=== PATIENT | male | born 1940 | race Caucasian/White ===

== ENCOUNTER 2019-10-24 08:42 | Emergency (ER) | payer MEDICARE, MEDICAID, SELFPAY ==
[2019-10-24] VITALS (11 sets, daily range): BP systolic 166–214; BP diastolic 90–117; PULSE 50–70; RESP 14–19; TEMP 36.8; O2SAT 95–98; BMI 33.3
--- NOTE | 2019-10-24 08:57 | ECG_ITS ---
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 Measurements Intervals [place] Rate: 58 P: 41 MN: 186 QRS: 2 QRSD: 98 T: 131 QT: 417 QTc: 411 Interpretive Statements SINUS BRADYCARDIA LEFT VENTRICULAR HYPERTROPHY AND ST-T CHANGE [VOLTAGE CRITERIA PLUS ST/T ABNORMALITY] POSSIBLE SEPTAL MYOCARDIAL INFARCTION , PROBABLY OLD [30 ms Q WAVE IN V1/V2] Compared to ECG 04/16/2017 10:20:02 Sinus rhythm no longer present ST (T wave) deviation still present Myocardial infarct finding still present Electronically Signed On 10-24-2019 18:58:33 CDT by Ambar Pinto M.D. [id number] f
[2019-10-24 09:19] LABS: Basophils # 0.1 10^3/uL (0.0-0.1); Basophils % 0.7 %; Eosinophils # 0.2 10^3/uL (0.0-0.8); Eosinophils % 3.1 %; Hematocrit 43.2 % (42.0-52.0); Hemoglobin 13.9 g/dL (11.7-16.6); Lymphocytes # 1.4 10^3/uL (0.8-4.8); Lymphocytes % 21.2 %; Mean Corpuscular HGB Conc 32.2 g/dL (30.0-36.0); Mean Corpuscular Hemoglobin 30.8 pg (28.0-34.0); Mean Corpuscular Volume 95.8 fL (80-94); Mean Platelet Volume 9.8 fL (7.4-10.4); Monocytes # 0.6 10^3/uL (0.2-0.9); Monocytes % 8.2 %; Neutrophils # 4.44 10^3/uL (1.8-7.7); Neutrophils % 66.1 %; Nucleated Red Blood Cells % 0 %; Platelet Count 193 10^3/cmm (130-400); Red Blood Count 4.51 10^6/uL (4.1-5.3); Red Cell Distribution Width 12.9 % (12.1-15.1); White Blood Count 6.7 10^3/uL (4.0-10.0)
--- NOTE | 2019-10-24 09:31 | PC.NURSE ---
Pt provided with blanket. Pt states he is unable to void at this time, urinal at bedside, call light in reach. Pt denies other needs at this time.
--- NOTE | 2019-10-24 09:35 | W.ED.ABDPA2 ---
HPI - Abdominal Pain General: Chief Complaint: Abdominal Pain Stated Complaint: ABD PAIN Time Seen by Provider: 10/24/19 08:46 History of Present Illness: HPI narrative: 79-year-old male presents complaining of vague abdominal discomfort and constipation. States he is gaining weight he is taken several different laxatives with no response including lactulose. He feels like he is gaining weight without really eating and he has this constipation but no real abdominal pain or chest pain. When asked specifically what is bothering him mostly focuses on the constipation. He usually does see a doctor in failure. He denies any fever sweats chills no GI or symptoms no respiratory symptoms MD elicited complaint: abdominal pain Pertinent past history: constipation Onset (ago): day(s) Severity: mild Quality: cramping Radiation: none Migration to: no migration Exacerbating factors: nothing Relieving factors: nothing Associated Symptoms: Reports bloating, constipation, GI cramping, nausea and poor appetite; Denies coffee ground emesis, diarrhea, dyspepsia, dysuria, fever(s), heartburn, hematochezia, hematuria, hematemesis, fecal incontinence, loose stools, melena and vomiting Treatments prior to arrival: other (Lactulose) Review of Systems Const: Denies: fever(s) ENMT: Denies: throat pain, ear or mastoid pain, nasal discharge or nasal congestion Card: Denies: chest pain, edema, dyspnea on exertion or orthopnea Resp: Denies: dyspnea, productive cough or non-productive cough GI: Reports: nausea, constipation, bloating and GI cramping; Denies: vomiting, hematemesis, coffee ground emesis, heartburn, diarrhea, fecal incontinence, hematochezia or melena : Denies: dysuria or hematuria Skin/Breast: Denies: rash or pruritus PFS ED PFSH: Medical History Chest pain HTN (hypertension) Left ventricular hypertrophy Family History Father Myocardial infarction Grandfather Myocardial infarction Grandmother Cancer Social History Smoking and tobacco status: never smoked Physical Exam Const: COMMON NORMALS: no acute distress GENERAL APPEARANCE: cooperative and comfortable ORIENTATION/CONSCIOUSNESS: Yes awake, Yes oriented to person, Yes oriented to place and Yes oriented to time HENMT: COMMON NORMALS: normocephalic, atraumatic and hearing grossly normal bilaterally HEAD & SCALP: normocephalic and atraumatic Eye: COMMON NORMALS: Equal, round and reactive pupils present, EOMs intact bilaterally, conjunctivae normal and no scleral icterus CONJUNCTIVA: Yes conjunctivae normal PUPIL: Yes Equal, round and reactive pupils present Neck/C-Spine: COMMON NORMALS: full ROM, no lymphadenopathy, supple and no JVD Lymph: LYMPHATIC: no lymphadenopathy noted and no lymphedema noted Resp: COMMON NORMALS: normal respiratory effort, No retractions, No use of accessory muscles and clear to auscultation bilaterally AUSCULTATION: clear to auscultation bilaterally Cardio: COMMON NORMALS: no JVD, regular rate, regular rhythm and No murmurs present (Cardio) RATE: regular rate RHYTHM: regular rhythm GI: COMMON NORMALS: Soft to palpation and No hepatosplenomegaly present AUSCULTATION: Yes normoactive bowel sounds PALPATION: Yes Soft to palpation, Yes Tenderness to palpation present (GI) (Diffuse nonspecific tenderness), No Guarding due to palpation present (GI) and Yes No hepatosplenomegaly present OTHER: Significant distortion of the abdominal wall with a extremely large abdominal hernia seems to involve the entire abdominal wall it extends to the right of the midline. Bowel sounds are still positive. Extremity: COMMON NORMALS: normal to inspection, capillary refill normal, no clubbing, cyanosis or edema, no calf tenderness and no pedal edema Neuro: SENSORIUM/ORIENTATION: Yes oriented to person, Yes oriented to place and Yes oriented to time Skin: COMMON NORMALS: no rashes or lesions noted GENERAL SKIN EXAM: no rashes or lesions noted Course Vital Signs: Vital signs: Vital Signs Temperature 98.3 F 10/24/19 08:43 Pulse Rate 58 L 10/24/19 13:59 Respiratory Rate 18 10/24/19 13:59 Blood Pressure 166/91 10/24/19 13:59 Pulse Oximetry 96 10/24/19 13:59 MDM - Abdominal Pain MDM Narrative: Medical decision making narrative: Matt with the patient his blood pressure markedly elevated today he should follow-up with his primary care doctor to adjust his blood pressure medicines. He did get good results from enema recommend that he started on MiraLAX 17 g daily may need to adjust that dose follow-up with his primary care doctor on that as well. Return if he has any problems. Lab Data: Labs: Lab Results 10/24/19 10/24/19 10/24/19 Range/Units 09:14 09:14 10:18 WBC 6.7 (4.0-10.0) 10^3/ uL RBC 4.51 (4.1-5.3) 10^6/u L Hgb 13.9 (11.7-16.6) g/dL Hct 43.2 (42.0-52.0) % MCV 95.8 H (80-94) fL MCH 30.8 (28.0-34.0) pg MCHC 32.2 (30.0-36.0) g/dL RDW 12.9 (12.1-15.1) % Plt Count 193 (130-400) 10^3/c mm MPV 9.8 (7.4-10.4) fL Neut % (Auto) 66.1 % Lymph % (Auto) 21.2 % Perry % (Auto) 8.2 % Eos % (Auto) 3.1 % Baso % (Auto) 0.7 % Neut # (Auto) 4.44 (1.8-7.7) 10^3/u L Lymph # (Auto) 1.4 (0.8-4.8) 10^3/u L Perry # (Auto) 0.6 (0.2-0.9) 10^3/u L Eos # (Auto) 0.2 (0.0-0.8) 10^3/u L Baso # (Auto) 0.1 (0.0-0.1) 10^3/u L Nucleated RBC % (a uto) 0 % Nucleated RBCs # 0.0 /100WBC Sodium 140 (136-145) mmol/L Potassium 3.7 (3.5-5.1) mmol/L Chloride 106 (98-107) mmol/L Carbon Dioxide 24 (22-29) mmol/L Anion Gap 13.7 (5-19) BUN 9 (8-23) mg/dL Creatinine 1.1 (0.7-1.2) mg/dL GFR Calculation Not Reportable Glucose 154 H (65-115) mg/dL Calculated Osmolal ity 289 (285-295) mOsm/k g Calcium 8.9 (8.5-10.5) mg/dL Total Bilirubin 0.3 (0.15-1.2) mg/dL AST 16 (0-40) U/L ALT 16 (0-41) U/L Alkaline Phosphata se 88 (40-130) IU/L Total Protein 6.4 L (6.6-8.7) g/dL Albumin 3.6 (3.5-5.2) g/dL Globulin 2.8 (1.3-4.6) g/dL Urine Color Yellow (Yellow) Urine Appearance Clear (CLEAR) Urine pH 5 (5-7) Ur Specific Gravit y 1.020 (1.005-1.030) Urine Protein Neg (Negative) Urine Glucose (UA) Norm (Normal) Urine Ketones Negative (Negative) Urine Blood Neg (Negative) Urine Nitrate Negative (Negative) Urine Bilirubin Neg (NEGATIVE) Urine Urobilinogen Norm (Negative) mg/dL Ur Leukocyte Anna ase Negative (Negative) Discharge Plan Discharge Patient Disposition: Home Clinical Impression: Constipation, Abdominal wall hernia, HTN (hypertension) Condition: Stable Prescriptions: New Miralax 17 gram/dose powder 17 gm PO DAILY Qty: 510 RF: 0 No Action lactulose 10 gram/15 mL solution 45 ml PO TID RF: 0 lisinopril 40 mg tablet 40 mg PO DAILY Qty: 90 RF: 0 Multiple Vitamins Tablet 1 tab PO DAILY PRN (Reason: unknown) RF: 0 aspirin 325 mg Tablet 325 mg PO PRN RF: 0 Enema 19-7 gram/118 mL Enema 118 ml [place] DAILY PRN (Reason: Constipation) RF: 0 amlodipine 10 mg tablet 10 mg PO BEDTIME RF: 0 Referrals: Anel Box MD [Primary Care Provider] - Discharge Activity: Resume usual activity Activity Restrictions/Additional Instructions: Discharge home start MiraLAX 17 g daily follow-up with primary care doctor for further adjustments to medications. He also need to follow-up with your primary care doctor to adjust blood pressure medicines. 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
[2019-10-24 09:36] LABS: Alanine Aminotransferase 16 U/L (0-41); Albumin Level 3.6 g/dL (3.5-5.2); Alkaline Phosphatase 88 IU/L (40-130); Anion Gap 13.7 (5-19); Aspartate Amino Transferase 16 U/L (0-40); Blood Urea Nitrogen 9 mg/dL (8-23); Calcium 8.9 mg/dL (8.5-10.5); Carbon Dioxide 24 mmol/L (22-29); Chloride 106 mmol/L (98-107); Globulin 2.8 g/dL (1.3-4.6); Glucose 154 mg/dL (65-115); Osmolality Calculated 289 mOsm/kg (285-295); Potassium 3.7 mmol/L (3.5-5.1); Sodium 140 mmol/L (136-145); Total Bilirubin 0.3 mg/dL (0.15-1.2); Total Protein 6.4 g/dL (6.6-8.7)
--- NOTE | 2019-10-24 10:08 | PC.NURSE ---
Pt states he is still unable to void at this time. Pt denies other needs, call light and urinal in reach.
[2019-10-24 10:35] LABS: Add Urine Microscopic? NO
[2019-10-24 10:43] LABS: Bilirubin Urine Neg (NEGATIVE); Blood Urine Neg (Negative); Glucose Urine UA Norm (Normal); Ketones Urine Negative (Negative); Leukocyte Esterase Urine Negative (Negative); Nitrate Urine Negative (Negative); Protein Urine Neg (Negative); Urine Appearance Clear (CLEAR); Urine Color Yellow (Yellow); Urobilinogen Urine Norm (Negative); pH Urine 5 (5-7)
--- NOTE | 2019-10-24 10:46 | CT_ITS ---
WS: [id number] CT ABDOMEN AND PELVIS WITH CONTRAST HISTORY: Abdominal pain. TECHNIQUE: Imaging performed of the abdomen and pelvis with IV contrast. Single phase imaging of the abdomen. Coronal and sagittal reformats are submitted. All CT scans at [facility] use at least one of these dose optimization techniques: automated exposure control; mA and/or kV adjustment per patient size (includes targeted exams where dose is matched to clinical indication); or iterativ e reconstruction. IV CONTRAST: Omnipaque 300; 95 mL IV. Oral contrast: No DLP: 1589.32 mGy.cm COMPARISON: 06/14/2017 Lower thorax: Lung bases are clear. Heart is normal size. Small hernia. Liver/biliary system: Normal size liver with mild hepatic steatosis. No mass. Gallbladder: Small stones within the gallbladder lumen with no evidence for acute inflammation. No bi le duct dilatation. Pancreas: Normal. Spleen: Normal. Adrenal glands: Normal. Right kidney: Normal. Left kidney: Normal. Aorta: Mild atherosclerosis with no aneurysm. Lymphadenopathy: None. Free fluid: None. GI tract: There is marked dilatation of the colon with air. Very similar to prior examinations. No mu cosal thickening or inflammation. The appendix is normal. No small bowel dilatation. No obstruction a t this time. There is a large ventral hernia with loops of colon and small bowel projecting through t he hernia. Abdominal wall: There is a large ventral abdominal wall hernia. Projection of small bowel and colon t hrough the hernia. Similar to the prior study. Hernia projects to the RIGHT and inferior. Pelvis: Normal. Bones: Multilevel degenerative changes throughout the lumbar spine. Endplate osteophytes. No fracture s or bone destruction. CT/CT abdomen pelvis w con* [id number] IMPRESSION: 1. Large ventral abdominal wall hernia contains colon and small bowel. There i s no obstruction. 2. Significant dilatation of the colon with fecal material and air but no obst ruction. Similar to prior studies and may be related to chronic constipation. 3. Normal appendix. 4. Cholelithiasis without evidence for acute cholecystitis.
--- NOTE | 2019-10-24 10:59 | PC.NURSE ---
Pt to CT
[2019-10-24] MEDS: iohexol 300 mg/mL 100 mL Btl IV (11:11)
--- NOTE | 2019-10-24 11:21 | PC.NURSE ---
Pt returned from CT. Pt states his pain is overall better, but comes and goes in severity. Pt denies needs at this time. Call light in reach.
--- NOTE | 2019-10-24 12:12 | PC.NURSE ---
Milk of Molasses enema instilled via protocol. Pt tolerated well. Pt instructed to hold enema as long as possible, preferably 5-10 min if able. Pt with BSC at bedside and call light in reach.
--- NOTE | 2019-10-24 12:19 | PC.NURSE ---
Pt up to BSC
[2019-10-24] MEDS: hyDRALAzine 20 mg/mL INJ 1 mL IVP (12:54)
[2019-10-24] MEDS: cloNIDine 0.1 mg Tablet PO (13:01)
== END 2019-10-24 14:01 | disposition home or self-care (01) ==
PROVIDERS: Emergency Provider Family Medicine; PCP Family Medicine
DX: K59.00 Constipation, unspecified (principal); K43.9 Ventral hernia without obstruction or gangrene; I10 Essential (primary) hypertension; Z79.82 Long term (current) use of aspirin
CPT/HCPCS: 12345; 36415; 45915; 74177; 80053; 81003; 85025; 93005; 96374; 96375; 99284; J0360; Q9967

== ENCOUNTER → 2020-01-13 08:40 | Outpatient (BNVA) | payer MEDICARE, MEDICAID, SELFPAY | PROVIDERS: PCP Family Medicine; Visit Provider Family Medicine | DX: I10 Essential (primary) hypertension (principal); M06.9 Rheumatoid arthritis, unspecified; Z79.899 Other long term (current) drug therapy | CPT/HCPCS: 80053; 80061; 85025 ==

== ENCOUNTER → 2020-01-18 16:28 | Outpatient (BNVA) | payer MEDICARE, MEDICAID, SELFPAY | PROVIDERS: PCP Family Medicine; Visit Provider Family Medicine | DX: R73.9 Hyperglycemia, unspecified (principal); I10 Essential (primary) hypertension; L98.9 Disorder of the skin and subcutaneous tissue, unspecified | CPT/HCPCS: 36416; 80053; 80061; 82962; 83036 ==

== ENCOUNTER → 2020-01-23 15:17 | Outpatient (BNVA) | payer MEDICARE, MEDICAID, SELFPAY | PROVIDERS: PCP Family Medicine; Visit Provider Dermatology | DX: D48.9 Neoplasm of uncertain behavior, unspecified (principal) | CPT/HCPCS: 88304 ==

== ENCOUNTER 2021-03-25 20:16 | Emergency (ER) | payer MEDICARE, MEDICAID, SELFPAY ==
[2021-03-25 20:18] VITALS: BP 217/117; PULSE 81; RESP 18; TEMP 37.3; O2SAT 99; BMI 33.0
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
[2021-03-25] MEDS: tetanus-dipt-pertussis 0.5 mL SDV IM (20:40)
[2021-03-25] MEDS: HYDROcodone-acetaminophen 5-325 mg Tablet 1 TAB PO (20:51)
[2021-03-25 21:01] VITALS: BP 218/98
== END 2021-03-25 21:04 | disposition home or self-care (01) ==
PROVIDERS: Emergency Provider Emergency Medicine; PCP Family Medicine
DX: S80.212A Abrasion, left knee, initial encounter (principal); S90.512A Abrasion, left ankle, initial encounter; V03.00XA Pedestrian on foot injured in collision with car, pick-up truck or van in nontraffic accident, initial encounter; Z79.82 Long term (current) use of aspirin; I10 Essential (primary) hypertension; H35.30 Unspecified macular degeneration; Z23 Encounter for immunization
CPT/HCPCS: 73590; 73610; 90471; 90715; 99283

== ENCOUNTER 2021-11-10 12:44 | Inpatient (IN) | payer MEDICARE, MEDICAID, SELFPAY ==
[2021-11-10] VITALS (8 sets, daily range): BP systolic 127–185; BP diastolic 67–100; PULSE 69–94; RESP 16–18; TEMP 36.9–38.2; O2SAT 91–95; BMI 32.1
--- NOTE | 2021-11-10 12:47 | W.ED.CHESTPA ---
HPI - Chest Pain General: Chief Complaint: Chest Pain Stated Complaint: CHEST PAIN Time Seen by Provider: 11/10/21 12:47 History of Present Illness: Mr. Poe is an 81-year-old gentleman with history of hypertension, LVH who presents to the emergency department for chest pain. He reports onset of symptoms at approximately 10 AM this morning while at rest. Describes substernal chest pressure with radiation to the left arm and mild associated nausea. Intensity symptoms at worst was moderate to severe. Improved with nitroglycerin. Denies frequent history of similar or infectious symptoms. No other specific changes in health, exacerbating, or alleviating factors identified. Onset (ago): hour(s) Onset: during rest Pain location: substernal Severity: moderate Quality: heaviness and dull Associated symptoms: Reports dyspnea and nausea Review of Systems General: Reports: 10 or more systems reviewed and unremarkable except in HPI and below Resp: Reports: dyspnea GI: Reports: nausea PFSH ED PFSH: Medical History Chest pain History of nonmelanoma skin cancer HTN (hypertension) Left ventricular hypertrophy Macular degeneration Rheumatoid arthritis Surgical History S/P colon resection Family History Father Myocardial infarction Grandfather Myocardial infarction Grandmother Cancer Social History Smoking and tobacco status: never smoked Physical Exam Const: COMMON NORMALS: alert GENERAL APPEARANCE: cooperative and well developed HENMT: COMMON NORMALS: normocephalic and atraumatic HEAD & SCALP: normocephalic and atraumatic Eye: COMMON NORMALS: conjunctivae normal CONJUNCTIVA: Yes conjunctivae normal SCLERA: sclerae normal Neck/C-Spine: COMMON NORMALS: supple GENERAL: Yes trachea midline Resp: COMMON NORMALS: normal respiratory effort and clear to auscultation bilaterally EFFORT & INSPECTION: Yes able to speak in complete sentences AUSCULTATION: clear to auscultation bilaterally Cardio: COMMON NORMALS: regular rate and regular rhythm RATE: regular rate RHYTHM: regular rhythm GI: COMMON NORMALS: Soft to palpation PALPATION: Yes Soft to palpation and No Tenderness to palpation present (GI) PERCUSSION: normal to percussion Extremity: GENERAL: Yes normal exam except as noted and No edema Neuro: COMMON NORMALS: moves all extremities SENSORIUM/ORIENTATION: Yes alert and No Orientation impaired Psych: COMMON NORMALS: mental status grossly normal and Normal thought process present THOUGHT PROCESS: Normal thought process present Course ED course: - Patient was seen and evaluated by me at bedside - Patient placed on cardiac monitors, IV access obtained - Initial evaluation notable for exam as above - Labs and xrays personally interpreted by me. EKG notable for nonspecific ST segment abnormalities, sinus rhythm, no STEMI. -Patient received prior to arrival appropriate dose aspirin. Analgesia given. - Labs notable for no leukocytosis, normal hemoglobin. Metabolic panel without acute derangement to explain symptoms. Intermediate range 2-hour troponin. - Imaging notable for no lobar consolidation or pneumothorax - Upon serial reexamination after treatment the patient was improved with analgesia - Based on patient history, evaluation, and testing as interpreted the most likely cause of the patient's condition is chest pain in a patient who is not low risk by heart score - The results of ED evaluation were discussed with the patient including possible disposition options. Patient is reasonable for admission for further cardiac testing and prefers admission over outpatient follow-up. I discussed plan for admission due to requirement for level of care not available if discharged to prevent significant worsening/deterioration. - Admitting service was contacted and Dr Kong with the hospitalist service agreed to admit the patient - Patient was admitted without further deterioration or significant events. Note: Click bubbles or prepopulated mak in note writing are used for assistance with data collection and billing and are inherently more limited than narrative and other text portions of this note. Please use narrative for additional clinical history and defer to narrative/free test for any case of contradictory information. If information appears in only free text or click bubble it should be considered present or absent as reported. Please contact note magazine writer for clarifications of clinical information or contradictory information. MDM is a brief summary, contradictory or erroneous seeming information should be clarified and full note should be reviewed. Vital Signs: Vital signs: Vital Signs Temperature 98.1 F 11/14/21 15:30 Pulse Rate 61 11/14/21 15:30 Respiratory Rate 15 11/14/21 15:30 Blood Pressure 135/69 11/14/21 15:30 Pulse Oximetry 97 11/14/21 15:30 Oxygen Delivery Nm thod 11/14/21 15:30 MDM - Chest Pain Medical Decision Making 81-year-old lady presenting with chest pain. Intermediate range 2-hour troponin, nonspecific ST segment abnormalities. Patient is not low risk by heart score and admitted for further cardiac testing. Medical Records I reviewed the patient's medical records. Lab Data I reviewed the patient's lab results. : 11/13/21 05:16 11/13/21 05:16 Radiology Impressions Chest X-Ray 11/10/21 13:12 IMPRESSION: No acute finding. Abdomen/Pelvis CT 11/11/21 18:10 IMPRESSION: 1. Cholelithiasis with hydrops of the gallbladder and question of mild gallbladder wall thickening. Consider further evaluation with gallbladder ultrasound. 2. Mild dilatation of the common bile duct which is a new finding. 3. Mild fatty liver 4. No change in large ventral hernia. Gallbladder Ultrasound 11/12/21 09:32 IMPRESSION: 1. Hydropic gallbladder. No visualized cholelithiasis. Calculus in the gallbladder seen on CT not well seen on the ultrasound. No gallbladder wall thickening or pericholecystic fluid. 2. Dilated common bile duct measuring 9 mm is new since October 24, 2019. Recommend further evaluation with MRCP to evaluate for choledocholithiasis. If MRI not tolerated, then recommend ERCP. 3. Hepatomegaly with diffuse fatty infiltration. 4. No hydronephrosis in RIGHT kidney. Cholangiopancreatography MRI 11/12/21 12:23 IMPRESSION: 1. Technically difficult evaluation due to body habitus. 2. Common bile duct is normal at 7 mm. No filling defect. 3. No intrahepatic duct dilatation. 4. Cholelithiasis with very minimal gallbladder hydrops. No associated wall thickening or edema. Laboratory Results WBC 7.7 10^3/uL (4.0-10.0) 11/10/21 13:10 RBC 4.32 10^6/uL (4.1-5.3) 11/10/21 13:10 Hgb 13.7 g/dL (11.7-16.6) 11/10/21 13:10 Hct 40.1 % (42.0-52.0) L 11/10/21 13:10 MCV 92.8 fl (80-94) 11/10/21 13:10 MCH 31.7 pg (28.0-34.0) 11/10/21 13:10 MCHC 34.2 g/dL (30.0-36.0) 11/10/21 13:10 RDW 12.5 % (12.1-15.1) 11/10/21 13:10 Plt Count 170 10^3/cmm (130-400) 11/10/21 13:10 MPV 10.3 fL (7.4-10.4) 11/10/21 13:10 Neut % (Auto) 85.8 % 11/10/21 13:10 Lymph % (Auto) 3.7 % 11/10/21 13:10 Sebastian % (Auto) 8.5 % 11/10/21 13:10 Eos % (Auto) 1.2 % 11/10/21 13:10 Baso % (Auto) 0.3 % 11/10/21 13:10 Neut # (Auto) 6.58 10^3/uL (1.8-7.7) 11/10/21 13:10 Lymph # (Auto) 0.3 10^3/uL (0.8-4.8) L 11/10/21 13:10 Sebastian # (Auto) 0.7 10^3/uL (0.2-0.9) 11/10/21 13:10 Eos # (Auto) 0.1 10^3/uL (0.0-0.8) 11/10/21 13:10 Baso # (Auto) 0.0 10^3/uL (0.0-0.1) 11/10/21 13:10 Nucleated RBC % (auto) 0 % 11/10/21 13:10 Nucleated RBCs # 0.0 /100WBC 11/10/21 13:10 Sodium 135 mmol/L (136-145) L 11/10/21 13:10 Potassium 3.7 mmol/L (3.5-5.1) 11/10/21 13:10 Chloride 102 mmol/L (98-107) 11/10/21 13:10 Carbon Dioxide 25 mmol/L (22-29) 11/10/21 13:10 Anion Gap 11.7 (5-19) 11/10/21 13:10 BUN 9 mg/dL (8-23) 11/10/21 13:10 Creatinine 0.8 mg/dL (0.7-1.2) 11/10/21 13:10 GFR Calculation Not Reportable 11/10/21 13:10 Glucose 245 mg/dL (65-115) H 11/10/21 13:10 Calculated Osmolality 287 mOsm/kg (285-295) 11/10/21 13:10 Calcium 8.8 mg/dL (8.5-10.5) 11/10/21 13:10 Total Bilirubin 0.6 mg/dL (0.15-1.2) 11/10/21 13:10 AST 18 U/L (0-40) 11/10/21 13:10 ALT 22 U/L (0-41) 11/10/21 13:10 Alkaline Phosphatase 118 U/L (40-130) 11/10/21 13:10 Troponin T Baseline 18 ng/L (0-15) H 11/10/21 13:10 Troponin T 120 Minute 22.05 ng/L (0-15) H 11/10/21 15:07 Delta Troponin T 4.05 ABS# (0-10) 11/10/21 15:07 NT-Pro-B Natriuret Pep 623 pg/mL (0-450) H 11/10/21 13:10 Total Protein 6.2 g/dL (6.6-8.7) L 11/10/21 13:10 Albumin 3.7 g/dL (3.5-5.2) 11/10/21 13:10 Globulin 2.5 g/dL (1.3-4.6) 11/10/21 13:10 Lipase 24 U/L (13-60) 11/10/21 13:10 Discharge Plan Discharge Patient Disposition: Admitted As Inpatient Admit Provider: Kevin Kong Clinical Impression: Chest pain Condition: Stable Discharge Diet: Cardiac and Diabetic Discharge Activity: Increase activity as tolerated Coding Level of Care Code ED 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
--- NOTE | 2021-11-10 12:59 | ECG_ITS ---
[facility] Test Date: 2021-11-10 Pat Name: Jens Poe Department: Room: Gender: Male Radiology Orderly: : 1940 Requested By: Cj Mulligan Order Number: [id number] Dave MD: Paula Flannery M.D. Measurements Intervals [place] Rate: 94 P: 27 CA: 181 QRS: -11 QRSD: 97 T: 130 QT: 339 QTc: 425 Interpretive Statements SINUS RHYTHM LEFT VENTRICULAR HYPERTROPHY AND ST-T CHANGE Compared to ECG 10/24/2019 09:08:09 Sinus bradycardia no longer present Myocardial infarct finding no longer present ST (T wave) deviation still present Electronically Signed On 11-11-2021 8:30:43 CDT by Paula Flannery M.D. [email or web address] memorial hospitaliCatapultpeoples hospital.[facility]/store/NU/[id number] f
--- NOTE | 2021-11-10 13:12 | XRR_ITS ---
PROCEDURE INFORMATION: Exam: XR Chest Exam date and time: 11/10/2021 1:18 PM Age: 81 years old Clinical indication: High blood pressure; chest pain. TECHNIQUE: Imaging protocol: Radiologic exam of the chest. Views: 1 view. COMPARISON: CR Chest 1 [place] [id number] 01/05/2017 6:13 AM FINDINGS: Lungs: No pneumonia or pulmonary edema. Pleural spaces: No pleural effusion or pneumothorax. Heart/Mediastinum: The cardiac silhouette is not enlarged. The mediastinal contours are normal. Bones/joints: No acute osseous abnormality. XR/XR chest 1V portable [id number] IMPRESSION: No acute finding.
[2021-11-10 13:24] LABS: Basophils % 0.3 %; Eosinophils # 0.1 10^3/uL (0.0-0.8); Eosinophils % 1.2 %; Hematocrit 40.1 % (42.0-52.0); Hemoglobin 13.7 g/dL (11.7-16.6); Lymphocytes # 0.3 10^3/uL (0.8-4.8); Lymphocytes % 3.7 %; Mean Corpuscular HGB Conc 34.2 g/dL (30.0-36.0); Mean Corpuscular Hemoglobin 31.7 pg (28.0-34.0); Mean Corpuscular Volume 92.8 fl (80-94); Mean Platelet Volume 10.3 fL (7.4-10.4); Monocytes # 0.7 10^3/uL (0.2-0.9); Monocytes % 8.5 %; Neutrophils # 6.58 10^3/uL (1.8-7.7); Neutrophils % 85.8 %; Nucleated Red Blood Cells % 0 %; Platelet Count 170 10^3/cmm (130-400); Red Blood Count 4.32 10^6/uL (4.1-5.3); Red Cell Distribution Width 12.5 % (12.1-15.1); White Blood Count 7.7 10^3/uL (4.0-10.0)
[2021-11-10 13:49] LABS: Troponin(5th) Baseline 18 ng/L (0-15)
[2021-11-10 13:51] LABS: Alanine Aminotransferase 22 U/L (0-41); Albumin Level 3.7 g/dL (3.5-5.2); Alkaline Phosphatase 118 U/L (40-130); Anion Gap 11.7 (5-19); Aspartate Amino Transferase 18 U/L (0-40); Blood Urea Nitrogen 9 mg/dL (8-23); Calcium 8.8 mg/dL (8.5-10.5); Carbon Dioxide 25 mmol/L (22-29); Chloride 102 mmol/L (98-107); Globulin 2.5 g/dL (1.3-4.6); Glucose 245 mg/dL (65-115); Lipase 24 U/L (13-60); NT Pro B Type Natriuretic Pept 623 pg/mL (0-450); Osmolality Calculated 287 mOsm/kg (285-295); Potassium 3.7 mmol/L (3.5-5.1); Sodium 135 mmol/L (136-145); Total Bilirubin 0.6 mg/dL (0.15-1.2); Total Protein 6.2 g/dL (6.6-8.7)
--- NOTE | 2021-11-10 15:20 | ECG_ITS ---
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 Measurements Intervals [place] Rate: 100 P: 28 LA: 183 QRS: -5 QRSD: 93 T: 124 QT: 319 QTc: 413 Interpretive Statements SINUS TACHYCARDIA LEFT VENTRICULAR HYPERTROPHY AND ST-T CHANGE [VOLTAGE CRITERIA PLUS ST/T ABNORMALITY] Compared to ECG 11/10/2021 12:59:57 Sinus rhythm no longer present ST (T wave) deviation still present Electronically Signed On 11-11-2021 8:34:33 CDT by Paula Flannery M.D. [email or web address]/store/[id number]
[2021-11-10] MEDS: morphine 4 mg/mL SDV 1 mL IVP (15:29)
[2021-11-10 15:46] LABS: Troponin 5 2HR 22.05 ng/L (0-15)
[2021-11-10 15:49] LABS: Troponin 5 2HR Delta 4.05 ABS# (0-10)
--- NOTE | 2021-11-10 18:17 | ECG_ITS ---
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 Measurements Intervals [place] Rate: 95 P: 48 TN: 189 QRS: 3 QRSD: 107 T: 131 QT: 356 QTc: 448 Interpretive Statements SINUS RHYTHM LEFT VENTRICULAR HYPERTROPHY AND ST-T CHANGE [VOLTAGE CRITERIA PLUS ST/T ABNORMALITY] Compared to ECG 11/10/2021 15:20:22 Sinus tachycardia no longer present ST (T wave) deviation still present Electronically Signed On 11-11-2021 8:33:12 CDT by Paula Flannery M.D. [id number]
--- NOTE | 2021-11-10 18:26 | PM.HP ---
Providers/Chief Complaint Admitting Physician: Kevin oKng MD Primary Care Provider: Anel Box MD Chief Complaint: CHEST PAIN History of Present Illness Jens Poe is a 81 year old male with past medical history of hypertension abdominal hernia, was brought in from home with chief complaint of substernal pressure-like chest pain around 6-7 in intensity at rest radiating to left arm which started this morning at around 10 AM, chest pain was relieved with sublingual nitro. When I examined the patient he was complaining of back pain radiating to his belly, as well as dizziness, he also had a temperature spike on the floor and has facial redness. Denied any abdominal pain, nausea vomiting, difficulty passing urine, cough. Upon arrival in the ER he was worked up for above-mentioned complaint. Pertinent imaging studies includes: X-ray chest: No infiltrates no effusion no pneumothorax EKG: Sinus tach, with T wave inversion in 1 aVL, ST depression in lead II, V4 to V6, unchanged from prior EKG in the past. Pertinent labs: WBC 7.7, H&H 13/ 40 , PLT : 170 , serum sodium 135 serum potassium 3.7, BUN serum creatinine 9 and 0.8 BUN serum creatinineBUN/SCR : 9/0.8 , Troponin trend: proBNP:623 Review of Systems General: Reports: 10 or more systems reviewed and unremarkable except in HPI and below Const: Denies: fever(s), chills, body aches, change in appetite or diaphoresis Card: Denies: palpitations, edema, swelling of feet/ankles, dyspnea on exertion, orthopnea or leg pain with exertion Resp: Denies: dyspnea, productive cough, wheezing or pain on inspiration GI: Denies: abdominal pain, nausea, vomiting, diarrhea or constipation : Denies: flank pain or difficulty urinating Musc: Reports: back pain; Denies: extremity pain or extremity swelling Neuro: Denies: headache(s), difficulty walking or confusion Medications/Allergies Home Medications Medication Instructions Recorded Confirmed Last Taken Type blood sugar diagnostic (Blood #100 ea 01/24/20 11/10/21 Unknown Rx Glucose Test) blood-glucose meter #1 ea 01/24/20 11/10/21 Unknown Rx aspirin 325 mg tablet 325 mg PO DAILY 08/29/20 11/10/21 11/10/21 History lisinopril 40 mg tablet 40 mg PO DAILY #90 tabs 03/28/21 11/10/21 11/10/21 Rx sennosides 15 mg tablet (Laxative 15 mg PO DAILY 10/23/21 11/10/21 11/10/21 History (sennosides)) Allergies Allergy/AdvReac Type Severity Reaction Status Date / Time Sulfa (Sulfonamide Allergy Unknown Unknown Verified 10/23/21 14:42 Antibiotics) PFSH Acute PFSH: Medical History Chest pain History of nonmelanoma skin cancer HTN (hypertension) Left ventricular hypertrophy Macular degeneration Rheumatoid arthritis Surgical History S/P colon resection Family History Father Myocardial infarction Grandfather Myocardial infarction Grandmother Cancer Social History Smoking and tobacco status: never smoked Vitals/I&O/Wt Last Vital Signs Temp 98.5 F 11/10/21 13:04 Pulse 94 11/10/21 17:04 Resp 18 11/10/21 18:00 BP 185/100 11/10/21 17:04 Pulse Ox 95 11/10/21 17:04 O2 Del Method 11/10/21 17:22 Weight last 48 hrs Weight 104.326 kg Weight 104.326 kg Physical Exam Const: COMMON NORMALS: patient oriented x3 Chest: COMMONS NORMALS: normal inspection of the chest and normal palpation of entire chest wall CHEST: Yes Symmetrical chest wall rise Resp: COMMON NORMALS: normal respiratory effort, No retractions, No use of accessory muscles and clear to auscultation bilaterally EFFORT & INSPECTION: Yes symmetric chest movement AUSCULTATION: clear to auscultation bilaterally Cardio: COMMON NORMALS: regular rate, regular rhythm, S1 normal heart sound present, S2 normal heart sound present, No gallops present (Cardio), No murmurs present (Cardio), No rub (Cardio) and Peripheral pulses 2+ throughout RATE: regular rate RHYTHM: regular rhythm HEART SOUNDS: S1 normal heart sound present and S2 normal heart sound present PERIPHERAL PULSES: Peripheral pulses 2+ throughout GI: COMMON NORMALS: Soft to palpation, non-tender, No hepatosplenomegaly present and no masses AUSCULTATION: Yes normoactive bowel sounds PALPATION: Yes Soft to palpation and Yes No hepatosplenomegaly present RECTAL EXAM: Yes deferred OTHER: Distended belly, abdominal hernia present Extremity: COMMON NORMALS: no clubbing, cyanosis or edema and no pedal edema Neuro: COMMON NORMALS: patient oriented x3 Data : 11/11/21 04:20 11/11/21 04:20 A&P Assessment and plan (1) Chest pain: Status: Acute (2) HTN (hypertension): Status: Acute Qualifiers: Hypertension type: essential hypertension Qualified Code(s): I10 - Essential (primary) hypertension (3) Fever: Status: Acute (4) Abdominal hernia: Status: Acute Plan 81 year old male with past medical history of hypertension abdominal hernia, was brought in from home with chief complaint of substernal pressure-like chest pain around 6-7 in intensity at rest radiating to left arm which started this morning at around 10 AM, chest pain was relieved with sublingual nitro. When I examined the patient he was complaining of back pain radiating to his belly, as well as dizziness, he also had a temperature of Along with facial redness. Assessment: Chest pain Hypertension Fever Plan: Follow-up 2D echo Follow blood culture Urine culture urine analysis Lactic acid Procalcitonin Continue aspirin and statin Continue lisinopril Continue Nitropaste Sublingual nitro as needed Empirically on ceftriaxone Possible stress test. DVT prophylaxis: On Lovenox CODE STATUS: Full code Attestations Medical Necessity Statement*: Patient is in hospital for chest pain management, fever. Anticipated length of stay greater than 2 midnights. Time Spent in Patient Care: Greater than 35 minutes (>than 50% of time spent in counselling and/or direct pt care on unit). 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
[2021-11-10] MEDS: enoxaparin 40 mg/0.4 mL Syringe SUBCUT (18:27)
[2021-11-10] MEDS: cefTRIAXone 1,000 MG in sodium chloride 0.9% (plus) 50 ML 100 MG IV (18:27)
[2021-11-10] MEDS: nitroglycerin 1 gm/inch oint Pkt 0.5 INCH TOPICAL (18:27)
[2021-11-10] MEDS: hyDRALAzine 25 mg Tablet PO (18:28)
[2021-11-10] MEDS: oxyCODONE-APAP 5-325 mg Tablet 1 TAB PO (18:30)
[2021-11-10 18:51] LABS: Add Urine Microscopic? YES; Bilirubin Urine Neg (Negative); Blood Urine Neg (Negative); Glucose Urine UA 4+ (Normal); Ketones Urine Negative (Negative); Leukocyte Esterase Urine 2+ (Negative); Nitrate Urine Negative (Negative); Protein Urine Neg (Negative); Specific Gravity, Urine 1.015 (1.005-1.030); Urine Appearance Hazy (CLEAR); Urine Color Yellow (Yellow); Urobilinogen Urine Norm (Negative); pH Urine 6 (5-7)
[2021-11-10 18:53] LABS: Bacteria Urine 1+ /hpf; Mucus Urine 1+ /hpf; Squamous Epithelial Cell Urine 0-4 /hpf (0-5); WBC Urine 15-25 /hpf (0-5)
[2021-11-10 18:56] LABS: Add Urine Culture? Yes
[2021-11-10 19:23] LABS: Glucose Point of Care 216 mg/dL (70-110)
[2021-11-10 19:52] LABS: Troponin 5 6HR 21.93 ng/L (0-15)
[2021-11-10 20:02] LABS: Troponin 5 6HR Delta 3.93 ng/L (0-12)
[2021-11-10] MEDS: acetaminophen 325 mg Tablet 650 MG PO (21:01)
[2021-11-10] MEDS: atorvastatin 40 mg Tablet PO (21:01)
[2021-11-10 21:26] LABS: Glucose Point of Care 233 mg/dL (70-110)
[2021-11-11] VITALS (12 sets, daily range): BP systolic 146–201; BP diastolic 67–107; PULSE 64–75; RESP 16–18; TEMP 36.8–38.1; O2SAT 91–95
[2021-11-11] MEDS: nitroglycerin 1 gm/inch oint Pkt 0.5 INCH TOPICAL ×4 (00:31→17:36)
[2021-11-11] MEDS: oxyCODONE-APAP 5-325 mg Tablet 1 TAB PO ×2 (02:12→08:29)
[2021-11-11 05:14] LABS: Basophils % 0.4 %; Eosinophils % 0.4 %; Hematocrit 41.8 % (42.0-52.0); Hemoglobin 14.1 g/dL (11.7-16.6); Lymphocytes # 0.5 10^3/uL (0.8-4.8); Lymphocytes % 6.5 %; Mean Corpuscular HGB Conc 33.7 g/dL (30.0-36.0); Mean Corpuscular Hemoglobin 31.7 pg (28.0-34.0); Mean Corpuscular Volume 93.9 fl (80-94); Mean Platelet Volume 10.8 fL (7.4-10.4); Monocytes % 13.9 %; Neutrophils # 5.41 10^3/uL (1.8-7.7); Neutrophils % 78.2 %; Nucleated Red Blood Cells % 0 %; Platelet Count 171 10^3/cmm (130-400); Red Blood Count 4.45 10^6/uL (4.1-5.3); Red Cell Distribution Width 12.8 % (12.1-15.1); White Blood Count 6.9 10^3/uL (4.0-10.0)
[2021-11-11 05:39] LABS: Lactic Sepsis W/Reflex 1.3 mmol/L (0.5-2.2)
[2021-11-11 05:47] LABS: Procalcitonin 0.14 ng/mL (0-0.5); Thyroid Stimulating Hormone 0.98 uIU/mL (0.27-4.20)
[2021-11-11 05:52] LABS: Estmated Average Glucose 292; Hemoglobin A1C 11.8 % (4.0-6.0)
[2021-11-11 05:58] LABS: Alanine Aminotransferase 21 U/L (0-41); Albumin Level 3.4 g/dL (3.5-5.2); Alkaline Phosphatase 104 U/L (40-130); Anion Gap 13.7 (5-19); Aspartate Amino Transferase 19 U/L (0-40); Blood Urea Nitrogen 12 mg/dL (8-23); Calcium 8.4 mg/dL (8.5-10.5); Carbon Dioxide 27 mmol/L (22-29); Chloride 101 mmol/L (98-107); Globulin 2.9 g/dL (1.3-4.6); Glucose 252 mg/dL (65-115); Magnesium 1.6 mg/dL (1.7-2.3); Osmolality Calculated 294 mOsm/kg (285-295); Potassium 3.7 mmol/L (3.5-5.1); Sodium 138 mmol/L (136-145); Total Bilirubin 0.6 mg/dL (0.15-1.2); Total Protein 6.3 g/dL (6.6-8.7)
[2021-11-11 06:44] LABS: Glucose Point of Care 277 mg/dL (70-110)
[2021-11-11] MEDS: lisinopril 20 mg Tablet 40 MG PO (08:31)
[2021-11-11] MEDS: sennosides 8.6 mg Tablet 17.2 MG PO (08:31)
[2021-11-11] MEDS: aspirin 81 mg Chew Tablet PO (08:31)
[2021-11-11] MEDS: insulin lispro 100 unit/1 mL SUBCUT ×4 (08:32→21:59)
--- NOTE | 2021-11-11 10:58 | PC.CHAP ---
Pastoral Care Encounter/Spiritual Assessment Type of Contact [] Declined inside barrel polisher visit [] Patient/Family/Request visit [] Outpatient visit [] Follow-up visit [] Physician referral [] Code/Alert [x] Routine visit [] Staff referral [] Actively dying [] Patient sleeping [] Family support [] [] Out of room [] Palliative care [] [] Receiving care in room [] Pre-surgical visit [] Trauma [] Long length of stay [] ICU visit [] Other: Relational/Emotional Strength [x] Patient feels connected with others/family/visitors/staff [] Distress [] Loneliness/isolation [] Abandonment Spirituality of Patient [x] Person of Cristiana [] Attends Synagogue of their Cristiana [x] Believes in Prayer [] Reads Bible or Sikhism materials [] There are Spiritual issues to be addressed 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 Interventions [x] Prayer [] Active listening [] Non-anxious presence [] Spiritual/emotional support [] Crisis/trauma care [] Spiritual counseling [] Bereavement support [] Provided bereavement packet [] Provided Bible/devotional materials [] Provided toy/stuffed animal, coloring book to patient or family member [] Provided Communion [] Anointing/[place] [] Salvation [x] Completed spiritual assessment [] Other: Impact on Illness or Injury [] Angry [] Fearful [] Anxious [] Often cries [] Exhaustion [] Unable to work [] Unable to attend orthodoxy [] Unable to walk/stand [] Unable to read [] Unable to drive [] Unable to eat/drink [] Unable to sleep [] Unable to be with family [] Patient intubated [] Other: Summary Time spent with patient 10 min
[2021-11-11 11:44] LABS: Glucose Point of Care 250 mg/dL (70-110)
[2021-11-11] MEDS: enoxaparin 40 mg/0.4 mL Syringe SUBCUT (17:37)
[2021-11-11 17:39] LABS: Glucose Point of Care 227 mg/dL (70-110)
[2021-11-11] MEDS: cefTRIAXone 1,000 MG in sodium chloride 0.9% (plus) 50 ML 100 MG IV (17:39)
[2021-11-11] MEDS: acetaminophen 325 mg Tablet 650 MG PO (17:44)
--- NOTE | 2021-11-11 18:03 | PM.PN ---
Subjective Subjective: Patient still having fever patient still having fevers but tells me his chest pain has resolved states that he went to the bathroom for BM and now feels better RN notes his blood pressure is quite high almost 200 systolic Patient tells me he had a bowel twist removed about 20 years ago and then developed a hernia. Hernia generally not painful but has become very large. He denies having had gallbladder or appendix removed. Last few days he has had some nausea and poor appetite Vitals/I&O/Wt Last Vital Signs Temp 98.9 F 11/11/21 11:51 Pulse 65 11/11/21 11:51 Resp 16 11/11/21 11:51 BP 150/75 11/11/21 11:51 Pulse Ox 95 11/11/21 11:51 O2 Del Method 11/11/21 11:51 11/11/21 11/11/21 11/11/21 06:59 14:59 22:59 Intake Total 120 / 120 Output Total 650 / 750 200 / 200 Balance -650 / -580 -80 / -80 Weight last 48 hrs Weight 104.326 kg Weight 104.326 kg Physical Exam Narrative: General well-developed male with notably visible and enlarged abdominal hernia right side lower quadrant CV regular rate and rhythm Lungs clear to auscultation bilaterally abdomen normal bowel tones soft thin abdominal wall muscles Calves no edema Mentation alert and oriented x3 Data : 11/11/21 04:20 11/11/21 04:20 Micro: Microbiology 11/10/21 19:18 Blood Culture - Preliminary Blood SPECIMEN COLLECTED 11/10/21 19:15 Blood Culture - Preliminary Blood SPECIMEN COLLECTED A&P Assessment and plan (1) Chest pain: Unclear etiology not for certain this is cardiac. With fever I am concerned that he might have pneumonia or abdominal pathology Status: Acute (2) HTN (hypertension): [id number] beta-[id number] Status: Acute Qualifiers: Hypertension type: essential hypertension Qualified Code(s): I10 - Essential (primary) hypertension (3) Fever: UTI based on urine and treated with Rocephin CT scan to look for abdominal pathology or kidney stones Status: Acute (4) Abdominal hernia: Status: Acute Plan CODE STATUS: Full code Attestations Medical Necessity Statement*: Further work-up including CT of the abdomen and pelvis with contrast has history of cholelithiasis Time Spent in Patient Care: 35 minutes spent in evaluation and coordination of care for this patient Coding Level of Care Code Acute 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
--- NOTE | 2021-11-11 18:10 | CTR_ITS ---
PROCEDURE INFORMATION: Exam: CT Abdomen And Pelvis With Contrast Exam date and time: 11/11/2021 8:08 PM Age: 81 years old Clinical indication: Abdominal pain; Generalized; Additional info: Abd hernia, fever and UTI with HX cholelithiasis TECHNIQUE: Imaging protocol: Computed tomography of the abdomen and pelvis with contrast. Radiation optimization: All CT scans at this facility use at least one of these dose optimization techniques: automated exposure control; mA and/or kV adjustment per patient size (includes targeted exams where dose is matched to clinical indication); or iterative reconstruction. Contrast material: OMNI 350; Contrast volume: 80 ml; Contrast route: INTRAVENOUS (IV); Other contrast: Oral, readi-cat, 900; COMPARISON: CT abdomen pelvis w con* [id number] 10/24/2019 11:00 AM RADIATION DOSE METRICS: Total DLP (mGy-cm): 974.13 FINDINGS: Liver: There is a diffuse decrease in hepatic parenchymal density, consistent with mild fatty infiltration. There is no focal abnormality within the liver. Gallbladder and bile ducts: A calcified gallstone is present. There is mild hydrops of the gallbladder which is 11.5 cm in length and 4.4 cm in greatest diameter. There may be mild gallbladder wall thickening and slight adjacent stranding. Correlation with gallbladder ultrasound suggested. Common bile duct is mildly prominent measuring 9 mm. This is a change from 10/24/2019. Pancreas: The pancreas is normal. Spleen: Normal. No splenomegaly. Adrenal glands: The adrenal glands are normal. Kidneys and ureters: The kidneys are normal. There is no evidence of hydronephrosis. There is no evidence of renal or ureteral calcifications. Stomach and bowel: There is no evidence of colitis/diverticulitis. There is no evidence of intestinal obstruction. Appendix: A normal appendix is identified. Intraperitoneal space: There is no evidence of free intraperitoneal fluid. Vasculature: The aorta is normal. Lymph nodes: There is no evidence of lymphadenopathy. Urinary bladder: Unremarkable as visualized. Reproductive: The prostate demonstrates mild nonspecific enlargement. The seminal vesicles are normal. Bones/joints: Unremarkable. No acute fracture. Soft tissues: There is a large wide-mouth ventral hernia containing fat and bowel without evidence of incarceration or obstruction. This is unchanged from previous. CT/CT abdomen pelvis w con* [id number] IMPRESSION: 1. Cholelithiasis with hydrops of the gallbladder and question of mild gallbladder wall thickening. Consider further evaluation with gallbladder ultrasound. 2. Mild dilatation of the common bile duct which is a new finding. 3. Mild fatty liver 4. No change in large ventral hernia.
--- NOTE | 2021-11-11 18:18 | USCV_ITS ---
Jens Poe Age: 81 Gender: M : 1940 Exam Date: 11/11/2021 07:17 Ordering Phys: Kevin Kong MD Technologist: Olivier Thomas [place] [facility] [place]: Chest pain BP: 128 / 68 HR: 69 Rhythm: Sinus Technical Quality: Adequate MEASUREMENTS (Male / Female) Normal Values 2D ECHO LV Diastolic Diameter PLAX 3.0 cm 4.2 - 5.9 / 3.9 - 5.3 cm LV Systolic Diameter PLAX 2.3 cm IVS Diastolic Thickness 1.3 cm 0.6 - 1.0 / 0.6 - 0.9 cm IVS Systolic Thickness 1.6 cm LVPW Diastolic Thickness 1.3 cm 0.6 - 1.0 / 0.6 - 0.9 cm LVPW Systolic Thickness 1.4 cm LVOT Diameter 2.1 cm LV Ejection Fraction 2D Teich 49.9 % LV Ejection Fraction MOD 2C 69.7 % LV Ejection Fraction 2C AL 70.7 % LA Diameter 4.1 cm LA Width 2.8 cm M-MODE Aortic Annulus Diameter 3.7 cm LA Ao Ratio MM 1.1 MV E Point Septal Separation 0.7 cm DOPPLER AV Peak Velocity 139.0 cm/s LVOT Peak Velocity 94.0 cm/s AV Area Cont Eq vti 2.5 cm squared AV Area Cont Eq pk 2.3 cm squared MV Area PHT 2.1 cm squared Mitral E to A Ratio 0.6 MV E' Velocity 38.0 cm/s Mitral E to MV E' Ratio 7.6 Mitral E to LV E' Lateral Ratio 5.9 Mitral E to LV E' Septal Ratio 10.8 TR Peak Velocity 114.0 cm/s TR Peak Gradient 5.2 mmHg TV Peak E Velocity 62.0 cm/s Right Atrial Pressure 3.0 mmHg Pulmonary Artery Systolic Pressu 8.2 mmHg RV Acceleration Time 0.1 s FINDINGS Left Ventricle Normal left ventricular cavity size. Increased left ventricular wall thickness. Mild concentric left ventricular hypertrophy. Normal left ventricular systolic function. Left ventricular ejection fraction is estimated at 65 %. Grade I diastolic dysfunction (abnormal relaxation filling pattern), normal to mildly elevated filling pressures. Right Ventricle Normal right ventricular size and systolic function. Right ventricular systolic pressure 8.2 mmHg. Right Atrium Normal right atrial size. Left Atrium Normal left atrial size. Mitral Valve Mildly thickened mitral valve. No mitral valve stenosis. Trace mitral valve regurgitation. Aortic Valve Aortic valve not well visualized. No aortic valve stenosis. No aortic valve regurgitation. Tricuspid Valve Structurally normal tricuspid valve. No significant tricuspid valve regurgitation. Pulmonic Valve Pulmonic valve not well visualized. No pulmonary valve stenosis. Pericardium No pericardial effusion. Aorta Normal size aortic root. IVC Inferior vena cava not visualized. CONCLUSIONS 1. Normal left ventricle size and systolic function. Mild concentric left ventricle hypertrophy. Left ventricular ejection fraction is estimated at 65 %. Grade I diastolic dysfunction (abnormal relaxation filling pattern), normal to mildly elevated filling pressures. 2. Normal right ventricular size and systolic function. 3. No significant valvular abnormality. 4. No prior similar studies to compare. Paula Flannery MD (Electronically Signed) Final Date: 11 November 2021 14:12 S
[2021-11-11] MEDS: atorvastatin 40 mg Tablet PO (19:53)
[2021-11-11] MEDS: iohexol 350 mg/mL 100 mL Btl IV (20:05)
[2021-11-11 21:16] LABS: Glucose Point of Care 158 mg/dL (70-110)
[2021-11-12] VITALS (10 sets, daily range): BP systolic 143–206; BP diastolic 74–120; PULSE 64–76; RESP 14–18; TEMP 36.7–38.3; O2SAT 90–97
--- NOTE | 2021-11-12 00:03 | PC.NURSE ---
Patient did not have left AC IV upon my arrival on shift.
[2021-11-12] MEDS: oxyCODONE-APAP 5-325 mg Tablet 1 TAB PO ×2 (00:27→17:27)
[2021-11-12] MEDS: nitroglycerin 1 gm/inch oint Pkt 0.5 INCH TOPICAL ×2 (00:27→05:39)
--- NOTE | 2021-11-12 01:06 | PC.NURSE ---
Patient's BP 206/120. Patient c/o back pain. Scheduled nitropaste given and PRN Oxy given. Blood pressure 143/74 when rechecked 30 minutes later.
[2021-11-12 04:29] LABS: Basophils % 0.3 %; Eosinophils % 0.2 %; Hematocrit 45.7 % (42.0-52.0); Hemoglobin 15.1 g/dL (11.7-16.6); Lymphocytes # 1.1 10^3/uL (0.8-4.8); Lymphocytes % 17.8 %; Mean Corpuscular Hemoglobin 31.9 pg (28.0-34.0); Mean Corpuscular Volume 96.4 fl (80-94); Mean Platelet Volume 10.8 fL (7.4-10.4); Monocytes # 0.9 10^3/uL (0.2-0.9); Monocytes % 14.1 %; Neutrophils # 4.17 10^3/uL (1.8-7.7); Neutrophils % 66.8 %; Nucleated Red Blood Cells % 0 %; Platelet Count 152 10^3/cmm (130-400); Red Blood Count 4.74 10^6/uL (4.1-5.3); Red Cell Distribution Width 12.9 % (12.1-15.1); White Blood Count 6.2 10^3/uL (4.0-10.0)
[2021-11-12 04:50] LABS: Alanine Aminotransferase 25 U/L (0-41); Albumin Level 3.4 g/dL (3.5-5.2); Alkaline Phosphatase 108 U/L (40-130); Blood Urea Nitrogen 15 mg/dL (8-23); Calcium 8.5 mg/dL (8.5-10.5); Carbon Dioxide 26 mmol/L (22-29); Chloride 99 mmol/L (98-107); Globulin 3.2 g/dL (1.3-4.6); Glucose 176 mg/dL (65-115); Osmolality Calculated 285 mOsm/kg (285-295); Sodium 135 mmol/L (136-145); Total Bilirubin 0.4 mg/dL (0.15-1.2); Total Protein 6.6 g/dL (6.6-8.7)
[2021-11-12 04:53] LABS: Anion Gap 13.6 (5-19); Aspartate Amino Transferase 31 U/L (0-40); Potassium 3.6 mmol/L (3.5-5.1)
[2021-11-12] MEDS: acetaminophen 325 mg Tablet 650 MG PO ×2 (05:38→22:47)
[2021-11-12 06:38] LABS: Glucose Point of Care 182 mg/dL (70-110)
[2021-11-12] MEDS: aspirin 81 mg Chew Tablet PO (08:41)
[2021-11-12] MEDS: sennosides 8.6 mg Tablet 17.2 MG PO (08:41)
[2021-11-12] MEDS: lisinopril 20 mg Tablet 40 MG PO (08:41)
[2021-11-12] MEDS: insulin lispro 100 unit/1 mL SUBCUT ×4 (08:45→21:36)
--- NOTE | 2021-11-12 09:32 | US_ITS ---
WS: [id number] ULTRASOUND ABDOMEN LIMITED CLINICAL INFORMATION: CT done 11/11/2021 COMPARISON: CT 11/28 FINDINGS: Technically difficult study due to patient condition and body habitus Liver Size: Enlarged Craniocaudal length: 21.6 cm. Echogenicity: Coarse Surface nodularity: None. Mass (size and location): None. Bile ducts Intrahepatic ducts: Normal. Common bile duct diameter: 0.9 cm. Gallbladder Somewhat hydropic gallbladder. Small calculus visualized on the recent CT not detected on this study. Gallstones: None visualized on this study. Small calculus visualized on the recent CT. Gallbladder sludge: None. Gallbladder wall thickening: None. Pericholecystic fluid: None. Sonographic Boo sign: Absent. Pancreas Normal as visualized. Right kidney: Normal. Hydronephrosis: None. Size: 10.7 cm x 5.1 cm x 5.9 cm. Abdominal aorta and IVC Visualized portions are normal. Ascites: None. US/US gall bladder [id number] IMPRESSION: 1. Hydropic gallbladder. No visualized cholelithiasis. Calculus in the gallbl adder seen on CT not well seen on the ultrasound. No gallbladder wall thickenin g or pericholecystic fluid. 2. Dilated common bile duct measuring 9 mm is new since October 24, 2019. Recom mend further evaluation with MRCP to evaluate for choledocholithiasis. If MRI n ot tolerated, then recommend ERCP. 3. Hepatomegaly with diffuse fatty infiltration. 4. No hydronephrosis in RIGHT kidney.
[2021-11-12] MEDS: ampicillin-sulbactam 3 GM in sodium chloride 0.9% (plus) 50 ML IV ×3 (11:44→22:45)
[2021-11-12 12:13] LABS: Glucose Point of Care 167 mg/dL (70-110)
--- NOTE | 2021-11-12 12:23 | MR_ITS ---
WS: [id number] MRCP (MAGNETIC RESONANCE CHOLANGIOPANCREATOGRAPHY) HISTORY: common bile duct dilatation COMPARISON: Gallbladder ultrasound 11/12/[address] 11/11/2021 TECHNIQUE: Multiple sequences are performed to evaluate the intra and extrahepatic ducts. Technically the study is difficult due to the large hernia causing distortion of the abdominal wall. The gallbladder is identified and normal size. No adjacent inflammation. No wall thickening. Filling defect in the dependent gallbladder is a small stone. No filling defect within the common bile duct. Normal common bile duct at 7 mm. The entire liver is not included. The portion of the liver included is normal. No pancreatic abnormal ity. Spleen is normal size. No ascites. No renal abnormalities. MR/MR MRCP [id number] IMPRESSION: 1. Technically difficult evaluation due to body habitus. 2. Common bile duct is normal at 7 mm. No filling defect. 3. No intrahepatic duct dilatation. 4. Cholelithiasis with very minimal gallbladder hydrops. No associated wall th ickening or edema.
[2021-11-12 16:16] LABS: D Dimer 0.68 ug/mIFEU (0-0.59)
--- NOTE | 2021-11-12 16:25 | P.PN_ITS ---
Subjective Subjective: Patient still having modest fevers. Abx change to Unasyn to cover CBD dilatation and gall stones with hydrops Patient tells me he had a bowel twist removed about 20 years ago and then developed a hernia. Hernia generally not painful but has become very large. He denies having had gallbladder or appendix removed. Last few days prior he has had some nausea and poor appetite. CT showed no diverticulitis or bowel obstruction but there was question of cholecystitis. US showed not acute cholecystitis. FEver not explained. The Diimer done just now barely elevated and troponin is pending Pt says no back pain or epigatric pain now. never been told previously he had diabetes. The pain in back and chest and left arm now resolved. Medications: Reviewed: Yes Vitals/I&O/Wt Last Vital Signs Temp 101.0 F H 11/12/21 15:46 Pulse 76 11/12/21 15:46 Resp 18 11/12/21 15:46 BP 188/94 11/12/21 15:46 Pulse Ox 97 11/12/21 15:46 O2 Del Method 11/12/21 15:46 11/12/21 11/12/21 11/12/21 06:59 14:59 22:59 Intake Total 50 / 50 Output Total 900 / 1300 225 / 225 Balance -900 / -890 -175 / -175 Weight last 48 hrs Weight 104.326 kg Physical Exam Narrative: General well-developed male with notably visible and enla rged abdominal hernia right side lower quadrant CV regular rate and rhythm Lungs clear to auscultation bilaterally abdomen normal bowel tones soft thin abdominal wall muscles, non tender abdomen Calves no edema Mentation alert and oriented x3 bs 236 Data : 11/12/21 03:55 11/12/21 03:55 Micro: Microbiology 11/10/21 18:37 Urine Culture - Final Urine,Clean Catch 11/10/21 19:18 Blood Culture - Preliminary Blood NEGATIVE TO DATE 11/10/21 19:15 Blood Culture - Preliminary Blood NEGATIVE TO DATE A&P Assessment and plan (1) Chest pain: given negative gallbladder etiology for pain and fever will proceed with lexiscan nuclear for the morning Status: Acute (2) HTN (hypertension): [id number]. l beta-sena added and amlodipine stress test in morning. lexiscan Status: Acute Qualifiers: Hypertension type: essential hypertension Qualified Code(s): I10 - Essential (primary) hypertension (3) Fever: UTI only finding of infection so far. 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
[2021-11-12 16:56] LABS: Glucose Point of Care 236 mg/dL (70-110)
[2021-11-12 17:03] LABS: Troponin T (5th) Once 31 ng/L (0-15)
[2021-11-12] MEDS: enoxaparin 40 mg/0.4 mL Syringe SUBCUT (17:27)
[2021-11-12] MEDS: amlodipine 5 mg Tablet 2.5 MG PO (17:27)
[2021-11-12] MEDS: metoprolol succinate ER (24 HR) 25 mg Tablet PO (17:28)
[2021-11-12] MEDS: atorvastatin 40 mg Tablet PO (20:18)
[2021-11-12 21:34] LABS: Glucose Point of Care 183 mg/dL (70-110)
[2021-11-13] VITALS (11 sets, daily range): BP systolic 110–162; BP diastolic 64–88; PULSE 59–77; RESP 13–17; TEMP 36.7–37.3; O2SAT 94–96
--- NOTE | 2021-11-13 | ECG_ITS ---
[facility] Test Date: 2021-11-13 Pat Name: Jens Poe Department: Room: 259 Gender: Male Gravity Prospector: : 1940 Requested By: Christopher Packer Order Number: [id number] Dave MD: Ebenezer Sawyer M.D. Interpretive Statements NAME OF STUDY: LEXISCAN SESTAMIBI STRESS TEST INDICATION: [cp, ] Procedure: At the baseline, the blood pressure was 147/85 mmHg with a heart rate of 59 bpm. The electrocardiogram showed normal sinus rhythm, normal axis with ST depression in lead II that persisted on Lexiscan injection. The Lexiscan was infused over a period of 20 seconds. A total of 0.4 mg of Lexiscan was infused. The stress phase was continued for a total of 5 minutes. Heart rate was at the end of stress phase was 77 bpm and a blood pressure of 105/63 mmHg. The EKG at the peak infusion revealed since normal sinus rhythm with no significant ST-T wave changes. Sestamibi was injected 20 seconds after the Lexiscan infusion. Blood pressure at the end of recovery phase was 110/65 mmHg with a heart rate of 76 bpm. Conclusion: 1. Normal EKG response to Lexiscan infusion 2. No Lexiscan induced chest pain or cardiac arrhythmia. 3. Normal blood pressure and heart rate response. 4. Sestamibi/sestamibi perfusion scan pending; see separate report. Electronically Signed On 12-01-2021 21:22:55 CDT by Ebenezer Sawyer M.D. [id number]
[2021-11-13] MEDS: ampicillin-sulbactam 3 GM in sodium chloride 0.9% (plus) 50 ML IV ×4 (03:55→23:53)
[2021-11-13] MEDS: oxyCODONE-APAP 5-325 mg Tablet 1 TAB PO (03:59)
[2021-11-13 05:35] LABS: Basophils % 0.3 %; Eosinophils % 0.3 %; Hemoglobin 14.8 g/dL (11.7-16.6); Lymphocytes # 0.6 10^3/uL (0.8-4.8); Lymphocytes % 19.7 %; Mean Corpuscular HGB Conc 34.4 g/dL (30.0-36.0); Mean Corpuscular Hemoglobin 31.7 pg (28.0-34.0); Mean Corpuscular Volume 92.1 fl (80-94); Mean Platelet Volume 10.7 fL (7.4-10.4); Monocytes # 0.5 10^3/uL (0.2-0.9); Monocytes % 16.2 %; Neutrophils # 1.96 10^3/uL (1.8-7.7); Neutrophils % 62.5 %; Nucleated Red Blood Cells % 0 %; Platelet Count 141 10^3/cmm (130-400); Red Blood Count 4.67 10^6/uL (4.1-5.3); Red Cell Distribution Width 12.6 % (12.1-15.1); White Blood Count 3.1 10^3/uL (4.0-10.0)
[2021-11-13 05:52] LABS: Alanine Aminotransferase 28 U/L (0-41); Albumin Level 2.9 g/dL (3.5-5.2); Alkaline Phosphatase 93 U/L (40-130); Anion Gap 12.1 (5-19); Aspartate Amino Transferase 44 U/L (0-40); Blood Urea Nitrogen 15 mg/dL (8-23); Calcium 8.1 mg/dL (8.5-10.5); Carbon Dioxide 27 mmol/L (22-29); Chloride 96 mmol/L (98-107); Glucose 178 mg/dL (65-115); Osmolality Calculated 279 mOsm/kg (285-295); Potassium 3.1 mmol/L (3.5-5.1); Sodium 132 mmol/L (136-145); Total Bilirubin 0.4 mg/dL (0.15-1.2); Total Protein 5.9 g/dL (6.6-8.7)
--- NOTE | 2021-11-13 06:05 | NMCV_ITS ---
NM mukund perf SPECT r/s* [id number] Jens Poe Age: 81 Gender: M : 1940 Exam Date: 11/13/2021 07:04 Ordering Phys: Christopher Yanes MD Technologist: SAGE Simon Exam Location: [facility] Indications: CHEST PAIN STRESS TEST Please see separate stress test report in [facility] for full findings IMAGE PROTOCOL Rest/Stress 1 Lexiscan Day Radiopharmaceutical Dose (mCi) Administration Site Administered by Rest: Tc-99m 10.7 IV SAGE Alan Sestamibi Stress:Tc-99m 33.0 IV SAGE Alan Sestamibi Rest: 13-Nov-2021 60 Discovery 630 Stress: 13-Nov-2021 30 Discovery 630 0.4mg Lexiscan. Supine position only as patient was unable to lay prone. SPECT RESULTS Technical Quality: Good Raw Data Analysis: Normal Image Corrections: No attenuation or motion correction applied Summed Stress Score: 1 Summed Rest Score: 0 Summed Difference Score: 1 PERFUSION FINDINGS There is a small in size, reversible perfusion defect noted in the inferolateral wall. This is consistent with small sized area of ischemia in left circumflex artery territory. FUNCTIONAL RESULTS (calculated via Gated SPECT) Stress Image LV EF (%): 53 Stress EDV (mL):107 TID: 0.96 Stress ESV (mL):50 FUNCTIONAL FINDINGS: There is normal left ventricular systolic function. IMPRESSIONS 1. Small sized area of ischemia is noted in the left circumflex artery territory. 2. LV systolic function is normal Ebenezer Sawyer MD (Electronically Signed) Final Date: 13 November 2021 11:34 S
[2021-11-13 06:16] LABS: Glucose Point of Care 173 mg/dL (70-110)
--- NOTE | 2021-11-13 07:42 | PC.NURSE ---
dr morejon notified of patient's potassium of 3.1 this morning
[2021-11-13] MEDS: regadenoson 0.4 Mg/5 ml Syringe IVP (08:04)
[2021-11-13] MEDS: ondansetron 2 mg/ML SDV 2 mL 4 MG IVP (09:17)
[2021-11-13] MEDS: potassium chloride ER 20 mEq Tablet 40 MEQ PO (09:18)
[2021-11-13] MEDS: amlodipine 5 mg Tablet 2.5 MG PO (09:18)
[2021-11-13] MEDS: metoprolol succinate ER (24 HR) 25 mg Tablet PO (09:19)
[2021-11-13] MEDS: sennosides 8.6 mg Tablet 17.2 MG PO (09:19)
[2021-11-13] MEDS: lisinopril 20 mg Tablet 40 MG PO (09:19)
[2021-11-13] MEDS: aspirin 81 mg Chew Tablet PO (09:20)
[2021-11-13 10:50] LABS: Glucose Point of Care 201 mg/dL (70-110)
--- NOTE | 2021-11-13 13:21 | PC.SOCIAL ---
IMM Update pg 2 of IMM updated and reviewed w/ patient. Copy provided and Copy dated, initialed and placed in chart.
--- NOTE | 2021-11-13 13:27 | PM.PN ---
Subjective Subjective: Patient has not had further chest pain he is still n.p.o. post nuclear medicine Lexiscan stress test which showed circumflex area small area of reversible ischemia Patient tells me that he uses a cart in [facility] and can keep up with old people but not young people. He has had chest pain going down his left arm 2 or 3 weeks ago then was better for a while and had another episode day of admission. Due to history of gallstones and fever with some nausea I proceeded with work-up for his gallbladder which ultimately was negative. Stress test overnight suggests reversible ischemia on the heart Medications: Reviewed: Yes Vitals/I&O/Wt Last Vital Signs Temp 98.4 F 11/13/21 12:00 Pulse 60 11/13/21 12:00 Resp 16 11/13/21 12:00 BP 155/84 11/13/21 12:00 Pulse Ox 95 11/13/21 12:00 O2 Del Method 11/13/21 12:00 11/12/21 11/13/21 11/13/21 22:59 06:59 14:59 Intake Total 590 / 640 100 / 740 50 / 50 Output Total 550 / 775 100 / 875 100 / 100 Balance 40 / -135 0 / -135 -50 / -50 Physical Exam Narrative: General well-developed well-nourished male in no acute cardiopulmonary stress he is alert artery pleasant CV regular rate and rhythm Lungs clear to auscultation bilateral Abdomen large ventral and right-sided hernia thin-walled abdomen no tenderness Calves no edema Mentation alert and oriented x3 Data : 11/13/21 05:16 11/13/21 05:16 Micro: Microbiology 11/10/21 18:37 Urine Culture - Final Urine,Clean Catch A&P Assessment and plan (1) Chest pain: Abnormal Lexiscan. I have consulted Dr. Flannery to see the patient. EKG and echo show LVH patient has known diabetes recently diagnosed this admission A1c 11.2 Status: Acute (2) HTN (hypertension): beta-sena added and amlodipine and blood pressure is improved s Status: Acute Qualifiers: Hypertension type: essential hypertension Qualified Code(s): I10 - Essential (primary) hypertension (3) Fever: UTI only finding of infection so far. Repeat UA Status: Acute (4) Abdominal hernia: unchanged large right sided ventral hernia without signs of obstruction to explain fever or chest pain Status: Acute Plan CODE STATUS: Full code Attestations Medical Necessity Statement*: Hospitalized for management of his angina and consultation with cardiology Time Spent in Patient Care: 35 minutes spent in evaluation coronation care for this patient today Coding Level of Care Code Established Pt Acute Code Official for Vinodg Fwjen Patient Type Established History Detailed Exam Detailed Medical Decision Making Moderate Complexity Diagnoses Chest pain R07.9 HTN (hypertension) I10 Hypertension type: essential hypertension Fever R50.9 Abdominal hernia K46.9
--- NOTE | 2021-11-13 14:48 | P.CONIM_ITS ---
Providers/Reason For Consult Consulting Physician/Specialty*: Dr. Flannery , Cardiology Reason for Consult*: Chest pain, abnormal stress test Attending Physician: Christopher Yanes MD Primary Care Provider: Anel Box MD History of Present Illness History of Present Illness Jens Poe is a 81 year old male with past medical history of hypertension, RA, macular degeneration, large abdominal hernia and cholelithiasis who presented from home with chief complaint of substernal pressure-like chest pain around 6-7 in intensity at rest radiating to left arm which started this morning at around 10 AM, chest pain was relieved with sublingual nitro.? He also c/o back pain radiating to his belly as well as dizziness. He also c/o feeling tired and intermittent pain in left arm with exertion. He also had a temperature spike with T max of 101 and tested positive for COVID-19. Hi sCOVID-19 PCR is pending. EKG: Sinus tach, with ST depression and T wave inversion in 1 aVL, ST depression in lead II, V4 to V6, w/o significant change from before. Stress test was interpreted as abnormal with mild reversible ischemia in LCx artery territory (SDS=1). Baseline troponin T 18->22--> 22. Review of Systems General: Reports: 10 or more systems reviewed and unremarkable except in HPI and below Const: Denies: fever(s), chills, body aches, change in appetite or diaphoresis Card: Reports: dyspnea on exertion; Denies: palpitations, edema, swelling of feet/ankles, orthopnea or leg pain with exertion Resp: Denies: dyspnea, productive cough, wheezing or pain on inspiration GI: Reports: abdominal pain; Denies: nausea, vomiting, diarrhea, constipation or hematochezia : Denies: flank pain or difficulty urinating Musc: Reports: back pain; Denies: extremity pain or extremity swelling Neuro: Denies: headache(s), difficulty walking or confusion Psych: Denies: anxiety or depression Medications/Allergies Home Medications Medication Instructions Recorded Confirmed Last Taken Type blood sugar diagnostic (Blood #100 ea 01/24/20 11/10/21 Unknown Rx Glucose Test) blood-glucose meter #1 ea 01/24/20 11/10/21 Unknown Rx aspirin 325 mg tablet 325 mg PO DAILY 08/29/20 11/10/21 11/10/21 History lisinopril 40 mg tablet 40 mg PO DAILY #90 tabs 03/28/21 11/10/21 11/10/21 Rx sennosides 15 mg tablet (Laxative 15 mg PO DAILY 10/23/21 11/10/21 11/10/21 History (sennosides)) Allergies Allergy/AdvReac Type Severity Reaction Status Date / Time Sulfa (Sulfonamide Allergy Unknown Unknown Verified 10/23/21 14:42 Antibiotics) Current Medications Generic Name Dose Route Start Last Admin Trade Name Freq PRN Reason Stop Dose Admin Acetaminophen 650 mg 11/10/21 18:09 11/12/21 22:47 Acetaminophen 325 Mg Tablet PO 650 mg Q6H PRN Administration Mild/Mod Pain Or Temp >/= 101 Aspirin 81 mg 11/11/21 09:00 11/13/21 09:20 Aspirin 81 Mg Chew Tablet PO 81 mg DAILY ERIK Administration Atorvastatin Calcium 40 mg 11/10/21 21:00 11/12/21 20:18 Atorvastatin 40 Mg Tablet PO 40 mg BEDTIME ERIK Administration Enoxaparin Sodium 40 mg 11/10/21 18:15 11/12/21 17:27 Enoxaparin 40 Mg/0.4 Ml Syringe SUBCUT 40 mg Q24H ERIK Administration Ampicillin Sodium/Sulbactam 50 mls @ 100 mls/hr 11/12/21 12:00 11/13/21 12:44 Sodium 3 gm/ Sodium Chloride IV Infused Q6H ERIK Infusion Protocol Insulin Human Lispro 0 unit 11/11/21 08:00 11/13/21 12:05 Insulin Lispro 100 Unit/1 Ml SUBCUT Not Given WM&BEDTIME ERIK Protocol Lisinopril 40 mg 11/11/21 09:00 11/13/21 09:19 Lisinopril 20 Mg Tablet PO 40 mg DAILY ERIK Administration Metoprolol Succinate 25 mg 11/12/21 15:20 11/13/21 09:19 Metoprolol Succinate Er (24 Hr) 25 Mg Tablet PO 25 mg DAILY ERIK Administration Ondansetron HCl 4 mg 11/10/21 18:09 11/13/21 09:17 Ondansetron 2 Mg/Ml Sdv 2 Ml IVP 4 mg Q8H PRN Administration vomiting, or N/V if npo Oxycodone/Acetaminophen 1 tab 11/10/21 18:09 11/13/21 03:59 Oxycodone-Apap 5-325 Mg Tablet PO 1 tab Q4H PRN Administration SEVERE PAIN Senna 17.2 mg 11/11/21 09:00 11/13/21 09:19 Sennosides 8.6 Mg Tablet PO 17.2 mg DAILY ERIK Administration PFSH Acute PFSH: Medical History Chest pain History of nonmelanoma skin cancer HTN (hypertension) Left ventricular hypertrophy Macular degeneration Rheumatoid arthritis Surgical History S/P colon resection Family History Father Myocardial infarction Grandfather Myocardial infarction Grandmother Cancer Social History Smoking and tobacco status: never smoked Vitals/I&O/Wt Last Vital Signs Temp 98.4 F 11/13/21 12:00 Pulse 62 11/13/21 14:00 Resp 16 11/13/21 12:00 BP 155/84 11/13/21 12:00 Pulse Ox 95 11/13/21 12:00 O2 Del Method 11/13/21 12:00 11/12/21 11/13/21 11/13/21 22:59 06:59 14:59 Intake Total 590 / 640 100 / 740 50 / 50 Output Total 550 / 775 100 / 875 100 / 100 Balance 40 / -135 0 / -135 -50 / -50 Data : 11/13/21 05:16 11/13/21 05:16 Micro: Microbiology 11/10/21 18:37 Urine Culture - Final Urine,Clean Catch Other data: TTE (11/11/21) ?CONCLUSIONS ?1.? Normal left ventricle size and systolic function.? Mild ?concentric left ventricle hypertrophy. Left ventricular ejection ?fraction is estimated at 65 %. Grade I diastolic dysfunction ?(abnormal relaxation filling pattern), normal to mildly elevated ?filling pressures. ?2. Normal right ventricular size and systolic function. ?3. No significant valvular abnormality. ?4. No prior similar studies to compare. Lexiscan sestamibi MPI (11/13/21) ?SPECT RESULTS ?Technical Quality: ? ? ? Good ?Raw Data Analysis:? ? ? Normal ?Image Corrections:? ? ? No attenuation or motion correction applied ?Summed Stress Score:? 1 ?Summed Rest Score: ? ? ? 0 ?Summed Difference Score: ? 1 ?PERFUSION FINDINGS ?There is a small in size, reversible perfusion defect noted in the ?inferolateral wall.? This is consistent with small sized area of ischemia in ?left circumflex artery territory. ?FUNCTIONAL RESULTS ? ? (calculated via Gated SPECT) ? Stress Image LV EF (%):? ? 53 ? Stress EDV (mL):107? TID:? 0.96 ? Stress ESV (mL):50 ?FUNCTIONAL FINDINGS: ?There is normal left ventricular systolic function. ?IMPRESSIONS ?1. Small sized area of ischemia is noted in the left circumflex artery ?territory. ?2. LV systolic function is normal A&P Assessment and plan (1) Chest pain: Mildly abnormal stress test -Recommend medical management this time -continue ASA, statin, beta sena. -Uptitrate amlodipine and /or add imdur. BP running high at this time -Follow up in office in 2 weeks Status: Acute (2) HTN (hypertension): BP running 150-200's systolically Status: Acute Qualifiers: Hypertension type: essential hypertension Qualified Code(s): I10 - Essential (primary) hypertension Plan Large abdominal hernia RA Obesity Thank u for allowing me to participate in patient's care. Please feel free to call with questions or concerns. Coding Level of Care Code Acute Software Solutions Architect for [facility] Diagnoses Chest pain R07.9 HTN (hypertension) I10 Hypertension type: essential hypertension
[2021-11-13] MEDS: isosorbide mononitrate ER 30 mg Tablet PO (16:50)
[2021-11-13 17:07] LABS: Glucose Point of Care 144 mg/dL (70-110)
[2021-11-13] MEDS: enoxaparin 40 mg/0.4 mL Syringe SUBCUT (17:16)
[2021-11-13] MEDS: atorvastatin 40 mg Tablet PO (20:12)
[2021-11-13 20:45] LABS: Glucose Point of Care 230 mg/dL (70-110)
[2021-11-13] MEDS: insulin lispro 100 unit/1 mL SUBCUT (21:37)
[2021-11-14] VITALS: BP 117/70; PULSE 69; RESP 13; TEMP 37; O2SAT 95
[2021-11-14 04:00] VITALS: BP 151/74; PULSE 61; RESP 12; TEMP 36.8; O2SAT 95
[2021-11-14 06:00] VITALS: PULSE 63
[2021-11-14] MEDS: ampicillin-sulbactam 3 GM in sodium chloride 0.9% (plus) 50 ML IV ×2 (06:12→12:43)
[2021-11-14] MEDS: glimepiride 2 mg Tablet PO (06:13)
[2021-11-14 07:59] VITALS: BP 143/76; PULSE 60; RESP 16; TEMP 36.7; O2SAT 94
[2021-11-14] MEDS: lisinopril 20 mg Tablet 40 MG PO (10:26)
[2021-11-14] MEDS: isosorbide mononitrate ER 30 mg Tablet PO (10:27)
[2021-11-14] MEDS: aspirin 81 mg Chew Tablet PO (10:27)
[2021-11-14] MEDS: sennosides 8.6 mg Tablet 17.2 MG PO (10:27)
[2021-11-14] MEDS: metoprolol succinate ER (24 HR) 25 mg Tablet PO (10:27)
[2021-11-14] MEDS: amlodipine 5 mg Tablet PO (10:27)
[2021-11-14] MEDS: insulin lispro 100 unit/1 mL SUBCUT ×2 (10:28→12:43)
[2021-11-14 11:04] LABS: Glucose Point of Care 264 mg/dL (70-110)
[2021-11-14 11:49] VITALS: BP 135/75; PULSE 56; RESP 15; TEMP 36.7; O2SAT 97
[2021-11-14 13:28] LABS: SARS Covid-2 Antigen Positive (Negative)
--- NOTE | 2021-11-14 14:01 | P.DS_ITS ---
Discharge Providers Date of Admission: 11/10/21 16:01 Date of Discharge: November 14, 2021 Attending Provider at Admission: Kevin Kong MD Attending Provider at Discharge: Christopher Yanes MD Consults: Dr. Flannery Primary Care Provider: Anel Box MD Diagnoses at Discharge Discharge Diagnosis (1) Chest pain: Details from hospital stay: Patient with mild lateral ischemia and will be treated medically Found to be hypertensive, newly diagnosed diabetes and COVID-positive There is room for significant improvement with modification of blood pressure heart rate and resolution of COVID. Follow-up with Dr. Flannery and 2 weeks Status: Acute (2) HTN (hypertension): Details from hospital stay: Blood pressure improved which should help decrease angina Status: Acute Qualifiers: Hypertension type: essential hypertension Qualified Code(s): I10 - Essential (primary) hypertension (3) COVID-19: Status: Acute (4) Diabetes: Status: Acute Reason for Visit Reason for Visit: CHEST PAIN Hospital Course Hospital Course 81-year-old male admitted with back pain radiating to the epigastric region. He has known nonobstructive gallstone and reported some nausea prior to presentation with poor appetite for 3 days. Patient had fevers and initially I thought this was related to acute on chronic cholecystitis CT scan was suggestive but proceeding onto ultrasound which was negative. Bile duct was full so he underwent MRCP which was negative . COVID test was sent but results not expected for 24 to 48 hours. Fever resolved. D-dimer unremarkable. Patient was seen by cardiology for circumflex area ischemia. Dr. Flannery recommends medical management as the area of ischemia is small. Of note the patient has COVID, newly diagnosed diabetes and uncontrolled hypertension all of which should improve his angina now that they are treated Physical Exam Narrative: General well-developed well-nourished male in no acute cardiopulmonary stress Patient is eating comfortably CV regular rate and rhythm Lungs clear to auscultation bilateral Abdomen positive bowel sounds soft very large ventral hernia on the right side noted with thin abdominal wall but nontender Calves nontender and no pretibial edema Skin warm and dry Discharge Data Studies Completed and Pending Completed Studies During Hospitalization Category Date Time Status CT abdomen pelvis w con* [id number] Routine Cat Scan 11/11/21 18:10 Completed Sestamibi Stress Test Request Routine Exams 11/13/21 07:27 Draft XR chest 1V portable [id number] Stat Exams 11/10/21 13:12 Completed MR MRCP [id number] Urgent MRI 11/12/21 12:23 Completed NM mukund perf SPECT r/s* [id number] Routine Nuc Med 11/13/21 06:05 Completed CV. echo complete* [id number] Routine Ultrasound 11/11/21 18:18 Completed US gall bladder [id number] Urgent Ultrasound 11/12/21 09:32 Completed Pending at discharge Category Date Time Status Sestamibi Stress Test Request Routine Exams 11/12/21 15:20 Stop Req Blood Culture Routine Lab 11/10/21 19:18 Results [facility] SARS-CoV-2 RNA Stat Lab 11/13/21 09:28 Received Radiology Impressions Chest X-Ray 11/10/21 13:12 IMPRESSION: No acute finding. Abdomen/Pelvis CT 11/11/21 18:10 IMPRESSION: 1. Cholelithiasis with hydrops of the gallbladder and question of mild gallbladder wall thickening. Consider further evaluation with gallbladder ultrasound. 2. Mild dilatation of the common bile duct which is a new finding. 3. Mild fatty liver 4. No change in large ventral hernia. Gallbladder Ultrasound 11/12/21 09:32 IMPRESSION: 1. Hydropic gallbladder. No visualized cholelithiasis. Calculus in the gallbladder seen on CT not well seen on the ultrasound. No gallbladder wall thickening or pericholecystic fluid. 2. Dilated common bile duct measuring 9 mm is new since October 24, 2019. Recommend further evaluation with MRCP to evaluate for choledocholithiasis. If MRI not tolerated, then recommend ERCP. 3. Hepatomegaly with diffuse fatty infiltration. 4. No hydronephrosis in RIGHT kidney. Cholangiopancreatography MRI 11/12/21 12:23 IMPRESSION: 1. Technically difficult evaluation due to body habitus. 2. Common bile duct is normal at 7 mm. No filling defect. 3. No intrahepatic duct dilatation. 4. Cholelithiasis with very minimal gallbladder hydrops. No associated wall thickening or edema. Laboratory Results WBC 3.1 10^3/uL (4.0-10.0) L 11/13/21 05:16 RBC 4.67 10^6/uL (4.1-5.3) 11/13/21 05:16 Hgb 14.8 g/dL (11.7-16.6) 11/13/21 05:16 Hct 43.0 % (42.0-52.0) 11/13/21 05:16 MCV 92.1 fl (80-94) 11/13/21 05:16 MCH 31.7 pg (28.0-34.0) 11/13/21 05:16 MCHC 34.4 g/dL (30.0-36.0) 11/13/21 05:16 RDW 12.6 % (12.1-15.1) 11/13/21 05:16 Plt Count 141 10^3/cmm (130-400) 11/13/21 05:16 MPV 10.7 fL (7.4-10.4) H 11/13/21 05:16 Neut % (Auto) 62.5 % 11/13/21 05:16 Lymph % (Auto) 19.7 % 11/13/21 05:16 Leake % (Auto) 16.2 % 11/13/21 05:16 Eos % (Auto) 0.3 % 11/13/21 05:16 Baso % (Auto) 0.3 % 11/13/21 05:16 Neut # (Auto) 1.96 10^3/uL (1.8-7.7) 11/13/21 05:16 Lymph # (Auto) 0.6 10^3/uL (0.8-4.8) L 11/13/21 05:16 Leake # (Auto) 0.5 10^3/uL (0.2-0.9) 11/13/21 05:16 Eos # (Auto) 0.0 10^3/uL (0.0-0.8) 11/13/21 05:16 Baso # (Auto) 0.0 10^3/uL (0.0-0.1) 11/13/21 05:16 Nucleated RBC % (auto) 0 % 11/13/21 05:16 Nucleated RBCs # 0.0 /100WBC 11/13/21 05:16 D-Dimer 0.68 ug/mIFEU (0-0.59) H 11/12/21 15:28 Sodium 132 mmol/L (136-145) L 11/13/21 05:16 Potassium 3.1 mmol/L (3.5-5.1) L 11/13/21 05:16 Chloride 96 mmol/L (98-107) L 11/13/21 05:16 Carbon Dioxide 27 mmol/L (22-29) 11/13/21 05:16 Anion Gap 12.1 (5-19) 11/13/21 05:16 BUN 15 mg/dL (8-23) 11/13/21 05:16 Creatinine 1.1 mg/dL (0.7-1.2) 11/13/21 05:16 GFR Calculation Not Reportable 11/13/21 05:16 Glucose 178 mg/dL (65-115) H 11/13/21 05:16 POC Glucose 264 mg/dL (70-110) H 11/14/21 10:55 Estimat Average Glucose 292 11/11/21 04:20 Hemoglobin A1c 11.8 % (4.0-6.0) H 11/11/21 04:20 Calculated Osmolality 279 mOsm/kg (285-295) L 11/13/21 05:16 Lactic Acid 1.3 mmol/L (0.5-2.2) 11/11/21 04:20 Calcium 8.1 mg/dL (8.5-10.5) L 11/13/21 05:16 Magnesium 1.6 mg/dL (1.7-2.3) L 11/11/21 04:20 Total Bilirubin 0.4 mg/dL (0.15-1.2) 11/13/21 05:16 AST 44 U/L (0-40) H 11/13/21 05:16 ALT 28 U/L (0-41) 11/13/21 05:16 Alkaline Phosphatase 93 U/L (40-130) 11/13/21 05:16 Troponin T Gen 5 ng/L 31 ng/L (0-15) H 11/12/21 15:28 Troponin T Baseline 18 ng/L (0-15) H 11/10/21 13:10 Troponin T 120 Minute 22.05 ng/L (0-15) H 11/10/21 15:07 Delta Troponin T 4.05 ABS# (0-10) 11/10/21 15:07 Troponin T Hi Sens 6Hr 21.93 ng/L (0-15) H 11/10/21 19:15 Troponin T Hi Sens 6Hr Delta 3.93 ng/L (0-12) 11/10/21 19:15 NT-Pro-B Natriuret Pep 623 pg/mL (0-450) H 11/10/21 13:10 Total Protein 5.9 g/dL (6.6-8.7) L 11/13/21 05:16 Albumin 2.9 g/dL (3.5-5.2) L 11/13/21 05:16 Globulin 3.0 g/dL (1.3-4.6) 11/13/21 05:16 Lipase 24 U/L (13-60) 11/10/21 13:10 Procalcitonin 0.14 ng/mL (0-0.5) 11/11/21 04:20 TSH 0.98 uIU/mL (0.27-4.20) 11/11/21 04:20 Urine Color Yellow (Yellow) 11/10/21 18:37 Urine Appearance Hazy (CLEAR) A 11/10/21 18:37 Urine pH 6 (5-7) 11/10/21 18:37 Ur Specific [place] 1.015 (1.005-1.030) 11/10/21 18:37 Urine Protein Neg (Negative) 11/10/21 18:37 Urine Glucose (UA) 4+ (Normal) H 11/10/21 18:37 Urine Ketones Negative (Negative) 11/10/21 18:37 Urine Blood Neg (Negative) 11/10/21 18:37 Urine Nitrate Negative (Negative) 11/10/21 18:37 Urine Bilirubin Neg (Negative) 11/10/21 18:37 Urine Urobilinogen Norm mg/dL (Negative) 11/10/21 18:37 Ur Leukocyte Esterase 2+ (Negative) H 11/10/21 18:37 Urine RBC None /hpf (0-2) 11/10/21 18:37 Urine WBC 15-25 /hpf (0-5) H 11/10/21 18:37 Ur Squamous Epith Cells 0-4 /hpf (0-5) H 11/10/21 18:37 Amorphous Sediment Not Reportable 11/10/21 18:37 Urine Bacteria 1+ /hpf (NONE) H 11/10/21 18:37 Urine Mucus 1+ /hpf 11/10/21 18:37 Coronavirus 229E (PCR) Cancelled 11/13/21 09:28 SARS-CoV-2 (PCR) Cancelled 11/13/21 09:28 SARS-CoV-2 Ag (Rapid) Positive (Negative) H 11/14/21 12:47 Vitals Last Vital Signs Temp 98.0 F 11/14/21 11:49 Pulse 56 L 11/14/21 11:49 Resp 15 11/14/21 11:49 BP 135/75 11/14/21 11:49 Pulse Ox 97 11/14/21 11:49 O2 Del Method 11/14/21 11:49 Discharge Plan Discharge Patient Disposition: Home Health Service Condition: Stable Prescriptions: New atorvastatin 40 mg Tablet 40 mg PO BEDTIME Qty: 30 0RF isosorbide mononitrate 30 mg Tablet Extended Release 24 Hr 30 mg PO DAILY Qty: 30 0RF amlodipine 5 mg Tablet 5 mg PO DAILY Qty: 30 0RF glimepiride 2 mg Tablet 2 mg PO DAILY@0700 Qty: 30 0RF nitroglycerin 0.4 mg Tablet, Sublingual 0.4 mg sublingual Q5M PRN (Reason: Chest Pain) Qty: 20 0RF metoprolol succinate 25 mg Tablet Extended Release 24 Hr 25 mg PO DAILY Qty: 30 0RF Continued Laxative (sennosides) 15 mg tablet 15 mg PO DAILY (DME) blood-glucose meter Kit See Rx Instructions .ROUTE .MEDSUPPLY Qty: 1 0RF Rx Instructions: testing twice daily (DME) Blood Glucose Test Strip See Rx Instructions .ROUTE .MEDSUPPLY Qty: 100 1RF Rx Instructions: testing twice daily lisinopril 40 mg tablet 40 mg PO DAILY Qty: 90 3RF aspirin 325 mg tablet 325 mg PO DAILY Discharge Orders: Discharge Order (Routine); Ordered 11/14/21 Ordered By: Christopher Yanes Referrals: [facility] ([facility]) [Outside] Anel Box MD [Primary Care Provider] - Discharge Diet: Cardiac and Diabetic Discharge Activity: Increase activity as tolerated Patient Instructions: Opioid Safety Activity Restrictions/Additional Instructions: follow up with Dr Flannery Cardiology in 2 weeks return if having chest pain with exertion check you blood sugar twice a day and take those to your doctor in 1 week Discharge Attestations Time Spent in Discharge Care*: greater than 30 min Time Spent in Smoking Cessation: Patient is not a smoker Quality Metrics Clinical Quality Measures [ No reported AMI, CVA or VTE this stay] Coding Level of Care Code Acute Chg FW DC note History Comprehensive Exam Detailed Medical Decision Making High Complexity Diagnoses Chest pain R07.9 HTN (hypertension) I10 Hypertension type: essential hypertension COVID-19 U07.1 Diabetes E11.9
--- NOTE | 2021-11-14 14:26 | PC.NURSE ---
Pt medications called in verbally to [facility] in [place], [place]. spoke to Christine.
[2021-11-14 15:30] VITALS: BP 135/69; PULSE 61; RESP 15; TEMP 36.7; O2SAT 97
[2021-11-14 16:52] LABS: Glucose Point of Care 74 mg/dL (70-110)
[2021-11-14 18:22] LABS: Quest SARS-CoV-2 RNA DETECTED (NOT DETECTED)
== END 2021-11-14 18:28 | disposition home health service (06) | DRG 311 ==
LOC: ER 16:01 → MEDSURG 16:51
PROVIDERS: Admitting Provider Internal Medicine; Emergency Provider Emergency Medicine; PCP Family Medicine; Visit Provider Internal Medicine
DX: I20.9 Angina pectoris, unspecified (principal); U07.1 COVID-19; K82.1 Hydrops of gallbladder; E11.9 Type 2 diabetes mellitus without complications; I10 Essential (primary) hypertension; K43.9 Ventral hernia without obstruction or gangrene; K80.20 Calculus of gallbladder without cholecystitis without obstruction; K83.8 Other specified diseases of biliary tract; R11.0 Nausea
CPT/HCPCS: 36415; 36416; 71045; 74177; 74181; 76705; 78452; 80053; 81001; 82962; 83036; 83605; 83690; 83735; 83880; 84145; 84443; 84484; 85025; 85378; 87040; 87086; 87426; 87635; 93005; 93017; 93306; 94760; 96372; 99285; A9500; J0295; J0696; J1650; J1815; J2270; J2405; J2785; Q9967

== ENCOUNTER → 2021-11-28 10:51 | Outpatient (BNVA) | payer MEDICARE, MEDICAID, SELFPAY | PROVIDERS: PCP Family Medicine; Visit Provider Nurse Practitioner Family | DX: R07.9 Chest pain, unspecified (principal) | CPT/HCPCS: 99213 ==

== ENCOUNTER → 2022-02-17 15:06 | Outpatient (BNVA) | payer MEDICARE, MEDICAID, SELFPAY | PROVIDERS: PCP Family Medicine; Visit Provider Family Medicine | DX: E11.9 Type 2 diabetes mellitus without complications (principal); I10 Essential (primary) hypertension | CPT/HCPCS: 80053; 80061; 83036; 85025 ==

== ENCOUNTER 2022-03-22 00:45 | Emergency (ER) | payer MEDICARE, MEDICAID, SELFPAY ==
[2022-03-22 00:46] VITALS: BP 217/93; PULSE 61; RESP 18; TEMP 37.1; O2SAT 96; BMI 41.8
--- NOTE | 2022-03-22 00:54 | ED_ITS ---
HPI - General Adult General: Chief complaint: General Medical Stated complaint: congestion Time Seen by Provider: 03/22/22 00:46 History of Present Illness: 81-year-old male patient comes in today with complaints of congestion or inability to clear his throat. On exam patient appears nontoxic. Patient reports symptoms starting yesterday with 4 symptoms tonight. Patient reports no shortness of breath or difficulty breathing. Associated symptoms: Deny chest pain Review of Systems ENMT: Reports: uvular edema (Boggy pale ovular large) and other (Difficulty clearing throat) Card: Denies: chest pain PFS ED PFSH: Medical History Chest pain History of nonmelanoma skin cancer HTN (hypertension) Left ventricular hypertrophy Macular degeneration Rheumatoid arthritis Surgical History S/P colon resection Family History Father Myocardial infarction Grandfather Myocardial infarction Grandmother Cancer Social History Smoking and tobacco status: never smoked Second hand smoke exposure: No Lives independently: Yes Household members: none Marital status: Current occupational status: retired History of recent travel: No Current gender identity: Male Special mine needs: No Physical Exam Const: COMMON NORMALS: alert HENMT: COMMON NORMALS: normocephalic and Normal external nose present HEAD & SCALP: normocephalic NOSE: Normal external nose present MOUTH: Normal oral and palatal mucosa present THROAT: uvular edema (Boggy pale ovular large) Neck/C-Spine: COMMON NORMALS: full ROM Resp: COMMON NORMALS: normal respiratory effort and clear to auscultation bilaterally AUSCULTATION: clear to auscultation bilaterally Cardio: COMMON NORMALS: regular rate and regular rhythm RATE: regular rate RHYTHM: regular rhythm GI: OTHER: Large postsurgical hernia Extremity: COMMON NORMALS: no pedal edema Neuro: SENSORIUM/ORIENTATION: Yes alert Skin: COMMON NORMALS: turgor normal GENERAL SKIN EXAM: turgor normal Course ED course: 0152, patient reports improvement of symptoms with decreased difficulty swallowing and sensation of something caught in his throat. Patient continues to manage secretions well without any signs of distress. Vital Signs: Vital signs: Vital Signs Temperature 98.7 F 03/22/22 00:46 Pulse Rate 61 03/22/22 00:46 Respiratory Rate 18 03/22/22 00:46 Blood Pressure 217/93 03/22/22 00:46 Pulse Oximetry 96 03/22/22 00:46 [facility] - General Adult Medical Decision Making 81-year-old male patient [facility] for complaints of difficulty clearing the back of his throat. Patient feels like there is a pocket of phlegm in the back of his throat and cannot get it to clear. On exam we note some swelling and edema to the uvula. No significant redness is noted. Vital signs note elevation of blood pressure but otherwise unremarkable. Differential diagnosis includes not limited to cellulitis, allergic reaction, angioedema, strep pharyngitis, viral syndrome. Patient was given a dose of 25 mg of Benadryl IM, and 10 mg of dexamethasone IM for symptoms. Patient had improvement of symptoms. Patient to continue on prednisone and loratadine for treatment. Patient reported understanding of care plan need for follow-up or return to the ER. Lab Data Laboratory Results Influenza Type A Ag negative (Negative) 03/22/22 01:05 Influenza Type B Ag negative (Negative) 03/22/22 01:05 SARS-CoV-2 Ag (Rapid) negative (Negative) 03/22/22 01:05 Group A Strep Rapid Negative (Negative) 03/22/22 01:05 Discharge Plan Discharge Patient Disposition: Home Clinical Impression: Uvulitis Condition: Stable Prescriptions: New loratadine 10 mg tablet 10 mg PO BID Qty: 20 0RF prednisone 10 mg tablet 10 mg PO BID Qty: 14 0RF No Action Laxative (sennosides) 15 mg tablet 15 mg PO DAILY amlodipine 5 mg tablet 2.5 mg PO DAILY Qty: 60 4RF lisinopril 40 mg tablet 40 mg PO DAILY Qty: 90 3RF Jardiance 10 mg tablet 10 mg PO DAILY Qty: 30 2RF (DME) blood-glucose meter Kit See Rx Instructions .ROUTE .MEDSUPPLY Qty: 1 0RF Rx Instructions: testing daily (DME) Blood Glucose Test Strip See Rx Instructions .ROUTE .MEDSUPPLY Qty: 50 3RF Rx Instructions: testing daily (DME) lancets Misc See Rx Instructions .Route Qty: 100 0RF Rx Instructions: daily atorvastatin 40 mg tablet See Rx Instructions .ROUTE .COMPLEX Qty: 30 5RF Dose Instruction: TAKE 1 TABLET BY MOUTH AT BEDTIME Rx Instructions: TAKE 1 TABLET BY MOUTH AT BEDTIME metoprolol succinate 25 mg tablet extended release 24 hr See Rx Instructions .ROUTE .COMPLEX Qty: 30 5RF Dose Instruction: Take 1 tablet by mouth once daily Rx Instructions: Take 1 tablet by mouth once daily isosorbide mononitrate 30 mg tablet extended release 24 hr See Rx Instructions .ROUTE .COMPLEX Qty: 30 5RF Dose Instruction: Take 1 tablet by mouth once daily Rx Instructions: Take 1 tablet by mouth once daily glimepiride 2 mg tablet See Rx Instructions .ROUTE .COMPLEX Qty: 14 0RF Dose Instruction: TAKE 1 TABLET BY MOUTH ONCE DAILY AT 7AM NEEDS APPOINTMENT Rx Instructions: TAKE 1 TABLET BY MOUTH ONCE DAILY AT 7AM nitroglycerin 0.4 mg Tablet, Sublingual 0.4 mg sublingual Q5M PRN (Reason: Chest Pain) Qty: 20 0RF Discharge Orders: Discharge ED (Routine); Ordered 03/22/22 Ordered By: Jose E Abbasi Referrals: Anel Box MD [Primary Care Provider] - Discharge Diet: Usual diet Discharge Activity: Increase activity as tolerated Patient Instructions: Pharyngitis (ED) Activity Restrictions/Additional Instructions: Continue with prednisone 10 mg 1 tablet 2 times a day for the next 7 days. Use Claritin 10 mg 1 tablet 2 times a day for the next 10 days. Drink plenty of water with medication. Return to ER for worsening symptoms such as fever greater than 104, inability to swallow fluids, or new concerns. Coding Level of Care Code ED Business Area Manager for Jose D Fwjen Exam Detailed
[2022-03-22] MEDS: dexamethasone 10 mg/mL INJ IM (01:02)
[2022-03-22] MEDS: diphenhydrAMINE 50 mg/mL SDV 1mL 25 MG IM (01:02)
[2022-03-22 01:25] LABS: Rapid Strep A Test Negative (Negative)
[2022-03-22 01:33] LABS: Influenza A by IFA negative (Negative); Influenza B by IFA negative (Negative); SARS Covid-2 Antigen negative (Negative)
[2022-03-22] MEDS: loratadine 10 mg Tablet PO (01:55)
[2022-03-22] MEDS: predniSONE 20 mg Tablet 40 MG PO (01:55)
[2022-03-22 02:02] VITALS: BP 195/101; PULSE 64; RESP 18; O2SAT 95
== END 2022-03-22 02:04 | disposition home or self-care (01) ==
PROVIDERS: Emergency Provider Nurse Practitioner Family; PCP Family Medicine
DX: K12.2 Cellulitis and abscess of mouth (principal); Z79.84 Long term (current) use of oral hypoglycemic drugs; I10 Essential (primary) hypertension; H35.30 Unspecified macular degeneration
CPT/HCPCS: 87081; 87426; 87804; 87880; 96372; 99284; J1100; J1200; J7512

== ENCOUNTER 2022-05-02 16:31 | Emergency (ER) | payer MEDICARE, MEDICAID, SELFPAY ==
[2022-05-02 16:34] VITALS: BMI 32.1
[2022-05-02 16:36] VITALS: BP 154/81; PULSE 62; RESP 18; TEMP 36.4; O2SAT 98
--- NOTE | 2022-05-02 17:09 | XRR_ITS ---
PROCEDURE INFORMATION: Exam: XR Right Temporomandibular Joint, Open and Closed Mouth, Unilateral Exam date and time: 05/02/2022 5:21 PM Age: 81 years old Clinical indication: Jaw pain; Additional info: Right jaw pain TECHNIQUE: Imaging protocol: XR of the right temporomandibular joint, open and closed mouth views. Unilateral exam. COMPARISON: No relevant prior studies available. FINDINGS: Sinuses: Well aerated. No opacification. Bones/joints: No fracture. No dislocation. No bony destruction. Symmetric moderate degenerative changes of the TMJ joints are noted. Soft tissues: Unremarkable. XR/[place] [id number] IMPRESSION: Unremarkable.
--- NOTE | 2022-05-02 17:13 | W.ED.DENTAL ---
HPI - Dental/Oral General: Chief complaint: Dental/Oral Stated complaint: right side jaw pain Time Seen by Provider: 05/02/22 17:09 History of Present Illness: Patient is a an 81-year-old male comes to the ED with right jaw pain. Symptoms started yesterday. He reports opening his mouth and hearing a pop in the right side of his jaw. Now he has throbbing type pain on right mandible. He went to their clinic today and they sent him here to have x-rays. He rates his pain currently a 3 out of 10. He took some Motrin before coming to the ED. Denies any other trauma or injuries. Associated symptoms: Denies fever(s) or odynophagia Review of Systems Const: Denies: fever(s), chills or fatigue Eyes: Denies: change in vision or eye discomfort ENMT: Reports: other (Right jaw pain); Denies: throat pain, odynophagia, nasal discharge or nasal congestion Card: Denies: chest pain, palpitations, edema, swelling of feet/ankles, dyspnea on exertion or orthopnea Resp: Denies: dyspnea, productive cough or non-productive cough GI: Denies: abdominal pain, nausea, vomiting, diarrhea, constipation or hematochezia : Denies: flank pain, difficulty urinating, dysuria or hematuria Musc: Denies: neck pain, back pain or extremity swelling Skin/Breast: Denies: rash or new lesions Neuro: Denies: headache(s), numbness in extremities or weakness in extremities PFSH ED PFSH: Medical History Chest pain History of nonmelanoma skin cancer HTN (hypertension) Left ventricular hypertrophy Macular degeneration Rheumatoid arthritis Surgical History S/P colon resection Family History Father Myocardial infarction Grandfather Myocardial infarction Grandmother Cancer Social History Smoking and tobacco status: never smoked Second hand smoke exposure: No Lives independently: Yes Household members: none Marital status: Current occupational status: retired Current gender identity: Male Special mine needs: No Physical Exam Const: COMMON NORMALS: no acute distress, patient oriented x3 and alert GENERAL APPEARANCE: cooperative and comfortable HENMT: COMMON NORMALS: normocephalic HEAD & SCALP: normocephalic FACE & SINUS: TMJ findings nontender: right and TMJ clicking laterality: right MOUTH: Normal oral and palatal mucosa present and TMJ findings TMJ Findings: nontender: right and TMJ clicking laterality: right THROAT: posterior oropharynx normal and uvula midline Neck/C-Spine: COMMON NORMALS: supple GENERAL: Yes normal visual inspection Resp: COMMON NORMALS: normal respiratory effort, No retractions, No use of accessory muscles and clear to auscultation bilaterally AUSCULTATION: clear to auscultation bilaterally Cardio: COMMON NORMALS: regular rate, regular rhythm, S1 normal heart sound present, S2 normal heart sound present, No gallops present (Cardio), No clicks present (Cardio), No murmurs present (Cardio) and Peripheral pulses 2+ throughout RATE: regular rate RHYTHM: regular rhythm HEART SOUNDS: S1 normal heart sound present and S2 normal heart sound present PERIPHERAL PULSES: Peripheral pulses 2+ throughout GI: COMMON NORMALS: Normal to inspection, nondistended, normoactive bowel sounds present, Soft to palpation, non-tender and no masses PALPATION: Yes Soft to palpation : COMMON NORMALS: Yes no CVA tenderness BLADDER/KIDNEY EXAM: Yes no CVA tenderness Back/Pelvis: COMMON NORMALS: no CVA tenderness Extremity: COMMON NORMALS: normal to inspection Neuro: COMMON NORMALS: patient oriented x3 SENSORIUM/ORIENTATION: Yes alert GAIT: Yes Normal gait present Skin: GENERAL SKIN EXAM: dry skin Course Vital Signs: Vital signs: Vital Signs Temperature 97.6 F 05/02/22 16:36 Pulse Rate 79 05/02/22 18:39 Respiratory Rate 16 05/02/22 18:39 Blood Pressure 154/81 05/02/22 16:36 Pulse Oximetry 99 05/02/22 18:39 Oxygen Delivery Me thod 05/02/22 16:36 [facility] - Dental/Oral Medical Decision Making Patient is a an 81-year-old male comes to the ED with right jaw pain. Symptoms started yesterday. He reports opening his mouth and hearing a pop in the right side of his jaw. Patient was was seen at their clinic and sent here to the ED to get an x-ray of his right jaw. Vitals are stable. Patient appears nontoxic and in no acute distress or pain. He has some right TMJ clicking. TMJ x-ray shows no acute findings. Patient was stable for discharge home and diagnosed with TMJ. Told to continue taking [id number] Tylenol or ibuprofen for pain. Follow-up with PCP in the next week for reevaluation. Patient understood and agreed with plan. Lab Data Radiology Impressions Temporomandibular Joint X-Ray 05/02/22 17:09 IMPRESSION: Unremarkable. Discharge Plan Discharge Patient Disposition: Home Clinical Impression: TMJ (temporomandibular joint syndrome) Condition: Stable Prescriptions: No Action Laxative (sennosides) 15 mg tablet 15 mg PO DAILY amlodipine 5 mg tablet 2.5 mg PO DAILY Qty: 60 4RF lisinopril 40 mg tablet 40 mg PO DAILY Qty: 90 3RF Jardiance 10 mg tablet 10 mg PO DAILY Qty: 30 2RF (DME) blood-glucose meter Kit See Rx Instructions .ROUTE .MEDSUPPLY Qty: 1 0RF Rx Instructions: testing daily (DME) Blood Glucose Test Strip See Rx Instructions .ROUTE .MEDSUPPLY Qty: 50 3RF Rx Instructions: testing daily (DME) lancets Misc See Rx Instructions .Route Qty: 100 0RF Rx Instructions: daily atorvastatin 40 mg tablet See Rx Instructions .ROUTE .COMPLEX Qty: 30 5RF Dose Instruction: TAKE 1 TABLET BY MOUTH AT BEDTIME Rx Instructions: TAKE 1 TABLET BY MOUTH AT BEDTIME metoprolol succinate 25 mg tablet extended release 24 hr See Rx Instructions .ROUTE .COMPLEX Qty: 30 5RF Dose Instruction: Take 1 tablet by mouth once daily Rx Instructions: Take 1 tablet by mouth once daily isosorbide mononitrate 30 mg tablet extended release 24 hr See Rx Instructions .ROUTE .COMPLEX Qty: 30 5RF Dose Instruction: Take 1 tablet by mouth once daily Rx Instructions: Take 1 tablet by mouth once daily glimepiride 2 mg tablet See Rx Instructions .ROUTE .COMPLEX Qty: 90 1RF Dose Instruction: TAKE 1 TABLET BY MOUTH ONCE DAILY AT 7AM NEEDS APPOINTMENT Rx Instructions: TAKE 1 TABLET BY MOUTH ONCE DAILY AT 7AM NEEDS APPOINTMENT loratadine 10 mg tablet 10 mg PO BID Qty: 20 0RF prednisone 10 mg tablet 10 mg PO BID Qty: 14 0RF nitroglycerin 0.4 mg Tablet, Sublingual 0.4 mg sublingual Q5M PRN (Reason: Chest Pain) Qty: 20 0RF Discharge Orders: Discharge ED (Routine); Ordered 05/02/22 Ordered By: Boaz Starr Referrals: Anel Box MD [Primary Care Provider] - Discharge Diet: Regular Discharge Activity: Resume usual activity Patient Instructions: TMJ (Temporomandibular Joint Syndrome) Activity Restrictions/Additional Instructions: Follow-up with medical provider as directed in the next 5 to 7 days reevaluation. Take [id number] Tylenol or ibuprofen to help with pain. Apply cold pack on jaw to help with symptoms. Soft diet and limit chewing to help with symptoms. Return to the ER or your medical provider if condition worsens. Please read and understand discharge instructions. Thank you for choosing [facility] for your healthcare needs today. Please realize this is an emergency room and that we are providing you with a medical screening exam and this may not be complete and all inclusive of all the testing and or work up that you may need to determine your ailment or severity of your illness. It is very important that you follow up as instructed or that you return to the Emergency Department should you have concerns or if your condition changes or worsens in any way. Coding Level of Care Code ED T[employer] Tester for Jose D Thompson
[2022-05-02 18:39] VITALS: PULSE 79; RESP 16; O2SAT 99
== END 2022-05-02 18:40 | disposition home or self-care (01) ==
PROVIDERS: Emergency Provider Physician Assistant; PCP Family Medicine
DX: M26.629 Arthralgia of temporomandibular joint, unspecified side (principal); Z79.84 Long term (current) use of oral hypoglycemic drugs; I10 Essential (primary) hypertension; H35.30 Unspecified macular degeneration
CPT/HCPCS: 70328; 99283

== ENCOUNTER 2022-05-03 16:18 | Emergency (ER) | payer MEDICARE, MEDICAID, SELFPAY ==
[2022-05-03 17:01] VITALS: BP 166/77; PULSE 63; TEMP 36.3; O2SAT 95; BMI 33.0
--- NOTE | 2022-05-03 17:23 | XRR_ITS ---
PROCEDURE INFORMATION: Exam: XR Lumbosacral Spine Exam date and time: 05/03/2022 5:36 PM Age: 81 years old Clinical indication: Low back pain; Additional info: Lower back pain TECHNIQUE: Imaging protocol: Radiologic exam of the lumbosacral spine. Views: 2 or 3 views. COMPARISON: CT abdomen pelvis w con* [id number] 11/11/2021 8:08 PM FINDINGS: Bones/joints: Lumbar curvature alignment is unremarkable. Moderate degenerative changes L1-L2, L4-L5 and L5-S1 with disc space narrowing, endplate sclerosis and osteophytic lipping. Mild-moderate degenerative facet arthrosis lower lumbar spine most pronounced at L5-S1. No fracture or spondylolisthesis. Pedicles are intact. Soft tissues: Unremarkable. XR/XR lumbar spine 2-3V* [id number] IMPRESSION: Moderate degenerative changes. No acute bony abnormalities.
[2022-05-03] MEDS: orphenadrine 30 mg/mL Inj 2 mL 60 MG IM (17:34)
[2022-05-03] MEDS: ketorolac 60 mg/2 mL INJ IM (17:34)
--- NOTE | 2022-05-03 17:52 | W.ED.BACK ---
HPI - Back Pain/Injury General: Chief Complaint: Back Pain/Injury Stated Complaint: Back pain Time Seen by Provider: 05/03/22 17:11 History of Present Illness: Patient is an 81-year-old male comes to the ED with back pain. Symptoms started couple hours prior to arrival. He was riding in seat of car earlier today and started feeling pain in his right lower back. He describes as a sharp pain and pain stays localized and does not radiate or migrate. He rates his pain currently a 7 out of 10. Denies any pain radiating down legs. Certain movements such as going from sitting to standing position causes worsening pain. Ambulation also causes worsening pain. Denies any bladder or bowel incontinence, weakness to lower extremities or pelvic anesthesia. Associated symptoms: Deny abdominal pain, chills, dysuria, fatigue, fever(s), hematuria, nausea or vomiting Review of Systems Const: Denies: fever(s), chills or fatigue Eyes: Denies: change in vision or eye discomfort ENMT: Denies: throat pain, odynophagia, nasal discharge or nasal congestion Card: Denies: chest pain, palpitations, edema, swelling of feet/ankles, dyspnea on exertion or orthopnea Resp: Denies: dyspnea, productive cough or non-productive cough GI: Denies: abdominal pain, nausea, vomiting, diarrhea, constipation or hematochezia : Denies: flank pain, difficulty urinating, dysuria or hematuria Musc: Reports: back pain; Denies: neck pain or extremity swelling Skin/Breast: Denies: rash or new lesions Neuro: Denies: headache(s), numbness in extremities or weakness in extremities PFS ED PFSH: Medical History Chest pain History of nonmelanoma skin cancer HTN (hypertension) Left ventricular hypertrophy Macular degeneration Rheumatoid arthritis Surgical History S/P colon resection Family History Father Myocardial infarction Grandfather Myocardial infarction Grandmother Cancer Social History Smoking and tobacco status: never smoked Second hand smoke exposure: No Lives independently: Yes Household members: none Marital status: Current occupational status: retired Current gender identity: Male Special mine needs: No Physical Exam Const: COMMON NORMALS: no acute distress, patient oriented x3 and alert GENERAL APPEARANCE: cooperative OTHER: Patient is able to stand up and ambulate. HENMT: COMMON NORMALS: normocephalic HEAD & SCALP: normocephalic MOUTH: Normal oral and palatal mucosa present THROAT: posterior oropharynx normal and uvula midline Neck/C-Spine: COMMON NORMALS: supple GENERAL: Yes normal visual inspection Resp: COMMON NORMALS: normal respiratory effort, No retractions, No use of accessory muscles and clear to auscultation bilaterally AUSCULTATION: clear to auscultation bilaterally Cardio: COMMON NORMALS: regular rate, regular rhythm, S1 normal heart sound present, S2 normal heart sound present, No gallops present (Cardio), No clicks present (Cardio), No murmurs present (Cardio) and Peripheral pulses 2+ throughout RATE: regular rate RHYTHM: regular rhythm HEART SOUNDS: S1 normal heart sound present and S2 normal heart sound present PERIPHERAL PULSES: Peripheral pulses 2+ throughout GI: COMMON NORMALS: Normal to inspection, nondistended, normoactive bowel sounds present, Soft to palpation, non-tender and no masses PALPATION: Yes Soft to palpation : COMMON NORMALS: Yes no CVA tenderness BLADDER/KIDNEY EXAM: Yes no CVA tenderness Back/Pelvis: COMMON NORMALS: no CVA tenderness LUMBAR SPINE/LOWER BACK: Yes pain with ROM, No lumbar spinal tenderness and Yes paraspinal muscle tenderness Lumbar paraspinal muscle tenderness: right Right lumbar paraspinal muscle tenderness: L4 and L5 Extremity: COMMON NORMALS: normal to inspection Neuro: COMMON NORMALS: patient oriented x3 SENSORIUM/ORIENTATION: Yes alert GAIT: Yes Normal gait present Skin: GENERAL SKIN EXAM: dry skin Course Vital Signs: Vital signs: Vital Signs Temperature 97.5 F L 05/03/22 18:51 Pulse Rate 55 L 05/03/22 18:51 Blood Pressure 177/90 05/03/22 18:51 Pulse Oximetry 95 05/03/22 18:51 Oxygen Delivery Me thod 05/03/22 18:51 MDM - Back Pain/Injury Medical Decision Making Patient is an 81-year-old male comes to the ED with back pain. Symptoms started couple hours prior to arrival. He was riding in seat of car earlier today and started feeling pain in his right lower back. He describes as a sharp pain and pain stays localized and does not radiate or migrate. He rates his pain currently a 7 out of 10. Denies any pain radiating down legs. Certain movements such as going from sitting to standing position causes worsening pain. Ambulation also causes worsening pain. Denies any bladder or bowel incontinence, weakness to lower extremities or pelvic anesthesia. Vitals are stable. Patient has no lumbar spinal tenderness. He has some paraspinal lumbar muscle tenderness. Pain with some range of motion. He is able to stand and ambulate. XR lumbar spine shows no acute fractures but notes moderate degenerative changes. Patient was given a dose of Toradol and Norflex here in the ED and his symptoms improved. He was diagnosed with a low back muscle strain and was stable for discharge home. He was discharged home with a prescription for muscle relaxer. Told to follow-up with PCP within the next week for reevaluation. Patient understood and agreed with plan. Labs Radiology Impressions Lumbar Spine X-Ray 05/03/22 17:23 IMPRESSION: Moderate degenerative changes. No acute bony abnormalities. Discharge Plan Discharge Patient Disposition: Home Clinical Impression: Low back strain Qualifiers: Encounter type: initial encounter Qualified Code(s): S39.012A - Strain of muscle, fascia and tendon of lower back, initial encounter Condition: Stable Prescriptions: New methocarbamol 750 mg tablet 750 mg PO Q8H PRN (Reason: Low back muscle spasms and pain) Qty: 20 0RF No Action Laxative (sennosides) 15 mg tablet 15 mg PO DAILY amlodipine 5 mg tablet 2.5 mg PO DAILY Qty: 60 4RF lisinopril 40 mg tablet 40 mg PO DAILY Qty: 90 3RF Jardiance 10 mg tablet 10 mg PO DAILY Qty: 30 2RF (DME) blood-glucose meter Kit See Rx Instructions .ROUTE .MEDSUPPLY Qty: 1 0RF Rx Instructions: testing daily (DME) Blood Glucose Test Strip See Rx Instructions .ROUTE .MEDSUPPLY Qty: 50 3RF Rx Instructions: testing daily (DME) lancets Misc See Rx Instructions .Route Qty: 100 0RF Rx Instructions: daily atorvastatin 40 mg tablet See Rx Instructions .ROUTE .COMPLEX Qty: 30 5RF Dose Instruction: TAKE 1 TABLET BY MOUTH AT BEDTIME Rx Instructions: TAKE 1 TABLET BY MOUTH AT BEDTIME metoprolol succinate 25 mg tablet extended release 24 hr See Rx Instructions .ROUTE .COMPLEX Qty: 30 5RF Dose Instruction: Take 1 tablet by mouth once daily Rx Instructions: Take 1 tablet by mouth once daily isosorbide mononitrate 30 mg tablet extended release 24 hr See Rx Instructions .ROUTE .COMPLEX Qty: 30 5RF Dose Instruction: Take 1 tablet by mouth once daily Rx Instructions: Take 1 tablet by mouth once daily glimepiride 2 mg tablet See Rx Instructions .ROUTE .COMPLEX Qty: 90 1RF Dose Instruction: TAKE 1 TABLET BY MOUTH ONCE DAILY AT 7AM NEEDS APPOINTMENT Rx Instructions: TAKE 1 TABLET BY MOUTH ONCE DAILY AT 7AM NEEDS APPOINTMENT loratadine 10 mg tablet 10 mg PO BID Qty: 20 0RF prednisone 10 mg tablet 10 mg PO BID Qty: 14 0RF nitroglycerin 0.4 mg Tablet, Sublingual 0.4 mg sublingual Q5M PRN (Reason: Chest Pain) Qty: 20 0RF Discharge Orders: Discharge ED (Routine); Ordered 05/03/22 Ordered By: Boaz Starr Referrals: Anel Box MD [Primary Care Provider] - Discharge Diet: Regular Discharge Activity: Increase activity as tolerated Patient Instructions: Low Back Strain (ED) Activity Restrictions/Additional Instructions: Follow-up with medical provider as directed in the next 5 to 7 days reevaluation. Take medications as prescribed. Limit any lifting. Rest and apply cold pack or heat on lower back to help with symptoms. Return to the ER or your medical provider if condition worsens. Please read and understand discharge instructions. Thank you for choosing [facility] for your healthcare needs today. Please realize this is an emergency room and that we are providing you with a medical screening exam and this may not be complete and all inclusive of all the testing and or work up that you may need to determine your ailment or severity of your illness. It is very important that you follow up as instructed or that you return to the Emergency Department should you have concerns or if your condition changes or worsens in any way. Coding Level of Care Code ED [employer] Cook for Jose D Thompson
[2022-05-03 18:51] VITALS: BP 177/90; PULSE 55; TEMP 36.4; O2SAT 95
== END 2022-05-03 18:54 | disposition home or self-care (01) ==
PROVIDERS: Emergency Provider Physician Assistant; PCP Family Medicine
DX: S39.012A Strain of muscle, fascia and tendon of lower back, initial encounter (principal); Z79.84 Long term (current) use of oral hypoglycemic drugs; I10 Essential (primary) hypertension; H35.30 Unspecified macular degeneration; X58.XXXA Exposure to other specified factors, initial encounter
CPT/HCPCS: 72100; 96372; 99284; J1885; J2360

== ENCOUNTER → 2022-05-29 16:46 | Outpatient (BNVA) | payer MEDICARE, MEDICAID, SELFPAY | PROVIDERS: PCP Family Medicine; Visit Provider Family Medicine | DX: I10 Essential (primary) hypertension (principal); E11.9 Type 2 diabetes mellitus without complications; E78.5 Hyperlipidemia, unspecified | CPT/HCPCS: 80053; 80061; 83036; 84443 ==

== ENCOUNTER → 2022-07-29 10:07 | Outpatient (BNVA) | payer MEDICARE, MEDICAID, SELFPAY | PROVIDERS: PCP Family Medicine; Visit Provider Dermatology | DX: C44.629 Squamous cell carcinoma of skin of left upper limb, including shoulder (principal); S30.860A Insect bite (nonvenomous) of lower back and pelvis, initial encounter; W57.XXXA Bitten or stung by nonvenomous insect and other nonvenomous arthropods, initial encounter; L57.0 Actinic keratosis; L82.1 Other seborrheic keratosis | CPT/HCPCS: 10120; 11603; 12032; 17000; 17003; 99213 ==

== ENCOUNTER → 2022-11-19 13:47 | Outpatient (BNVA) | payer MEDICARE, MEDICAID, SELFPAY | PROVIDERS: PCP Family Medicine; Visit Provider Family Medicine Adult Medicine | DX: E11.9 Type 2 diabetes mellitus without complications (principal); I10 Essential (primary) hypertension | CPT/HCPCS: 80053; 83036 ==

== ENCOUNTER → 2023-01-01 13:34 | Outpatient (BNVA) | payer MEDICARE, MEDICAID, SELFPAY | PROVIDERS: PCP Family Medicine; Visit Provider Dermatology | DX: Z85.828 Personal history of other malignant neoplasm of skin (principal); D17.1 Benign lipomatous neoplasm of skin and subcutaneous tissue of trunk; L82.1 Other seborrheic keratosis; D18.01 Hemangioma of skin and subcutaneous tissue; L57.0 Actinic keratosis | CPT/HCPCS: 17000; 99213 ==

== ENCOUNTER 2023-03-09 03:47 | Emergency (ER) | payer MEDICARE, MEDICAID, SELFPAY ==
[2023-03-09 03:47] VITALS: BP 216/96; PULSE 59; RESP 18; TEMP 36.4; O2SAT 94; BMI 32.1
--- NOTE | 2023-03-09 03:49 | W.ED.HA ---
HPI - Headache General: Chief Complaint: Skin/Abscess/Foreign Body Stated Complaint: lump on head Time Seen by Provider: 03/09/23 03:48 Source: patient and EMS Mode of arrival: EMS Limitations: no limitations History of Present Illness: 82-year-old male states he woke up this morning with a headache as 8 out of 10 he noticed a lump on his left forehead to that was painful to touch he does not believe he did hit his head on anything. Denies any fevers. Associated symptoms: Deny chest pain, fever(s), nausea, rash or vomiting Review of Systems Const: Denies: fever(s), chills, body aches or change in appetite Eyes: Denies: blurry vision or eye discomfort ENMT: Denies: throat pain or dental pain Card: Denies: chest pain Resp: Denies: dyspnea GI: Denies: abdominal pain, nausea, vomiting or diarrhea Musc: Denies: neck pain or back pain Skin/Breast: Denies: rash Neuro: Reports: headache(s) PFSH ED PFSH: Medical History Lipoma of back Osteoarthritis History of nonmelanoma skin cancer Macular degeneration Rheumatoid arthritis Left ventricular hypertrophy HTN (hypertension) Surgical History S/P colon resection Family History Father Myocardial infarction Grandfather Myocardial infarction Grandmother Cancer Social History Smoking and tobacco/nicotine status: never used tobacco/nicotine Second hand smoke exposure: No Substance/Drug Use: never Lives independently: Yes Household members: none Marital status: Current occupational status: retired Current gender identity: Male Special mine needs: No Physical Exam Const: COMMON NORMALS: no acute distress, patient oriented x3 and healthy appearing HENMT: COMMON NORMALS: normocephalic and atraumatic HEAD & SCALP: normocephalic and atraumatic Eye: COMMON NORMALS: Equal, round and reactive pupils present and EOMs intact bilaterally PUPIL: Yes Equal, round and reactive pupils present Neck/C-Spine: COMMON NORMALS: full ROM and supple Chest: COMMONS NORMALS: normal inspection of the chest and normal palpation of entire chest wall Resp: COMMON NORMALS: normal respiratory effort, No retractions, No use of accessory muscles and clear to auscultation bilaterally AUSCULTATION: clear to auscultation bilaterally Cardio: COMMON NORMALS: regular rate, regular rhythm and No murmurs present (Cardio) RATE: regular rate RHYTHM: regular rhythm GI: COMMON NORMALS: Normal to inspection, nondistended, normoactive bowel sounds present, Soft to palpation, non-tender and no masses PALPATION: Yes Soft to palpation Extremity: COMMON NORMALS: normal to inspection and full ROM Neuro: COMMON NORMALS: patient oriented x3, moves all extremities and no focal motor deficits Psych: COMMON NORMALS: mental status grossly normal, Normal thought process present and cooperative THOUGHT PROCESS: Normal thought process present Skin: COMMON NORMALS: no rashes or lesions noted and no wounds GENERAL SKIN EXAM: no rashes or lesions noted Course Vital Signs: Vital signs: Vital Signs Temperature 97.5 F L 03/09/23 03:47 Pulse Rate 59 L 03/09/23 03:47 Respiratory Rate 18 03/09/23 03:47 Blood Pressure 216/96 03/09/23 03:47 Pulse Oximetry 94 03/09/23 03:47 Oxygen Delivery Me thod Room Air 03/09/23 03:47 MDM - Headache Medical Decision Making Patient presents with a headache his head CT here is normal he has no signs of abscess or cellulitis he is stable for discharge she is follow-up with PCP and return if worsening he understands agrees to plan. Medical Records I reviewed the patient's medical records. Lab Data Radiology Impressions Head CT 03/09/23 04:05 IMPRESSION: No acute intracranial findings. ASSESSMENT: ASPECTS ([place] Stroke Program Early CT Score) is 10. All radiology interpretation(s) finalized by discharge Discharge Plan Discharge Patient Disposition: Home Clinical Impression: Headache Qualifiers: Headache type: unspecified Headache chronicity pattern: unspecified pattern Intractability: not intractable Qualified Code(s): R51.9 - Headache, unspecified Condition: Stable Prescriptions: No Action amlodipine 5 mg tablet 2.5 mg PO DAILY Qty: 60 4RF glimepiride 2 mg tablet See Rx Instructions .ROUTE .COMPLEX Qty: 90 1RF Dose Instruction: TAKE 1 TABLET BY MOUTH ONCE DAILY AT 7AM NEEDS APPOINTMENT Rx Instructions: TAKE 1 TABLET BY MOUTH ONCE DAILY AT 7AM NEEDS APPOINTMENT lisinopril 40 mg tablet 40 mg PO DAILY Qty: 90 3RF (DME) walker with large wheels and seat See Rx Instructions .Route .MEDSUPPLY Qty: 1 0RF Rx Instructions: As directed Laxative (sennosides) 15 mg tablet 15 mg PO DAILY (DME) blood-glucose meter Kit See Rx Instructions .ROUTE .MEDSUPPLY Qty: 1 0RF Rx Instructions: testing daily (DME) lancets Misc See Rx Instructions .Route Qty: 100 0RF Rx Instructions: daily nitroglycerin 0.4 mg tablet, sublingual 0.4 mg sublingual Q5M PRN (Reason: Chest Pain) Qty: 20 2RF atorvastatin 40 mg tablet 40 mg PO DAILY Qty: 30 3RF Jardiance 25 mg tablet See Rx Instructions .ROUTE .COMPLEX Qty: 30 0RF Dose Instruction: Take 1 tablet by mouth once daily Rx Instructions: Take 1 tablet by mouth once daily (DME) Blood Glucose Test Strip See Rx Instructions .ROUTE .MEDSUPPLY Qty: 50 3RF Rx Instructions: testing daily isosorbide mononitrate 30 mg tablet extended release 24 hr See Rx Instructions .ROUTE .COMPLEX Qty: 30 5RF Dose Instruction: Take 1 tablet by mouth once daily Rx Instructions: Take 1 tablet by mouth once daily metoprolol succinate 25 mg tablet extended release 24 hr See Rx Instructions .ROUTE .COMPLEX Qty: 30 5RF Dose Instruction: Take 1 tablet by mouth once daily Rx Instructions: Take 1 tablet by mouth once daily Discharge Orders: Discharge ED (Routine); Ordered 03/09/23 Ordered By: Elsie Charles Referrals: Anel Box MD [Physician] - 1-3 days Discharge Diet: Advance as tolerated Discharge Activity: Resume usual activity Patient Instructions: General Headache (ED) Coding Level of Care Code ED Historical Records Administrator for Jose D Thompson
--- NOTE | 2023-03-09 04:05 | CTR_ITS ---
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 Hypertensive over 200 systolic. TECHNIQUE: Imaging protocol: Computed tomography of the head without contrast. Radiation optimization: All CT scans at this facility use at least one of these dose optimization techniques: automated exposure control; mA and/or kV adjustment per patient size (includes targeted exams where dose is matched to clinical indication); or iterative reconstruction. Other technique: STROKE PROTOCOL was implemented. REPORTING DATA: Count of CT and Cardiac NM exams in prior 12 months: This patient has received 0 known CTs and 0 known cardiac nuclear medicine studies in the 12 months prior to the current study. COMPARISON: [place] [id number] 05/02/2022 5:21 PM RADIATION DOSE METRICS: Total DLP (mGy-cm): 1560.08 FINDINGS: Brain: No acute intracranial hemorrhage. No mass effect or midline shift. No acute extraaxial fluid collection. Unremarkable white matter. Cerebral ventricles: No ventriculomegaly. Paranasal sinuses: Moderate mucosal thickening in the left frontal and ethmoid sinuses and mild mucosal thickening in bilateral maxillary sinuses and right ethmoid sinus. Other paranasal sinuses are clear. Mastoid air cells: Visualized mastoid air cells are well aerated. Orbital cavities: Previous bilateral cataract surgery. Bones/joints: Unremarkable. No acute calvarial fracture. Soft tissues: Unremarkable. CT/CT head wo con* [id number] IMPRESSION: No acute intracranial findings. ASSESSMENT: ASPECTS ([place] Stroke Program Early CT Score) is 10.
[2023-03-09] MEDS: HYDROcodone-acetaminophen 5-325 mg Tablet 1 TAB PO (04:07)
[2023-03-09 05:05] VITALS: BP 179/98; PULSE 57; RESP 18; O2SAT 95
== END 2023-03-09 05:05 | disposition home or self-care (01) ==
PROVIDERS: Emergency Provider Emergency Medicine; PCP Family Medicine Adult Medicine
DX: R51.9 Headache, unspecified (principal); Z79.84 Long term (current) use of oral hypoglycemic drugs; H35.30 Unspecified macular degeneration; I10 Essential (primary) hypertension
CPT/HCPCS: 70450; 99284

== ENCOUNTER 2023-04-29 12:44 | Inpatient (IN) | payer MEDICARE, MEDICAID, SELFPAY ==
[2023-04-29] VITALS (7 sets, daily range): BP systolic 163–197; BP diastolic 81–98; PULSE 61–70; RESP 18–19; TEMP 36.4–36.6; O2SAT 94–100; BMI 32.1
--- NOTE | 2023-04-29 14:10 | CTR_ITS ---
PROCEDURE INFORMATION: Exam: CT Abdomen And Pelvis With Contrast Exam date and time: 04/29/2023 2:45 PM Age: 82 years old Clinical indication: Condition or disease; Prior surgery; Surgery date: 6+ months; Surgery type: Hernia mesh in the with removal do to complications in later early . Patient unsure of time frame; Additional info: Incarcerated hernia TECHNIQUE: Imaging protocol: Computed tomography of the abdomen and pelvis with contrast. Radiation optimization: All CT scans at this facility use at least one of these dose optimization techniques: automated exposure control; mA and/or kV adjustment per patient size (includes targeted exams where dose is matched to clinical indication); or iterative reconstruction. Contrast material: OMNI 350; Contrast volume: 100 ml; Contrast route: INTRAVENOUS (IV); COMPARISON: MR MRCP [id number] 11/12/2021 1:04 PM RADIATION DOSE METRICS: Total DLP (mGy-cm): 1100 FINDINGS: Lungs: Subsegmental bibasilar atelectasis. The visualized lung bases are otherwise grossly clear. Diaphragm: No evidence of diaphragmatic defect. Liver: Hepatic steatosis. No evidence of focal hepatic lesion. Gallbladder and bile ducts: There is cholelithiasis. No inflammatory changes to suggest acute cholecystitis. No intrahepatic or extrahepatic biliary dilatation. Pancreas: Unremarkable. Spleen: Unremarkable. Adrenal glands: Unremarkable. Kidneys and ureters: Bilateral renal parenchymal scarring. No hydronephrosis or ureteral stone. Stomach and bowel: Marked laxity of the ventral abdominal wall with a large right-sided ventral abdominal hernia measuring up to 30 cm in diameter containing the ascending colon, multiple loops of small bowel and their mesentery. There are multiple loops of dilated small bowel measuring up to 3.8 cm with air-fluid levels and relative change in caliber within the hernia sac suggestive of low-grade partial small bowel obstruction. No evidence of high-grade obstruction. There appears to be been prior hernia repair with mesh in place. No significant edema or fluid to suggest strangulation. Appendix: Normal appendix. Intraperitoneal space: No evidence of free air or fluid collection. Vasculature: No aneurysmal dilatation or dissection of the abdominal aorta. The celiac trunk, SMA and AMANDA are grossly patent. No evidence of IVC thrombus. The portal vein, SMV and splenic veins are grossly patent. Lymph nodes: No adenopathy. Urinary bladder: Grossly unremarkable. Reproductive: Grossly unremarkable. Bones/joints: No evidence of acute fracture or aggressive osseous lesion. Soft tissues: No evidence of fluid collection or hematoma in the superficial soft tissues. CT/CT abdomen pelvis w con* [id number] IMPRESSION: 1. Large right-sided ventral abdominal hernia with findings suggestive of low-grade partial small bowel obstruction. Surgical evaluation is recommended.
--- NOTE | 2023-04-29 14:12 | ED_ITS ---
HPI - Abdominal Pain 2 General: Chief Complaint: Abdominal Pain Stated Complaint: abd pain Time Seen by Provider: 04/29/23 14:01 Source: patient and family History of Present Illness: 82 male with a history of hypertension, diabetes, rheumatoid arthritis, who presents with right lower quadrant pain. The patient has a very large right ventral incisional hernia which he states has always been stuck out like that for many years. He states 3 hours prior to arrival, he had sudden onset of severe pain in the lower portion of this hernia defect. He has had associated nausea but no vomiting. He states he had a normal bowel movement this morning but has not passed gas since the pain became severe. He denies fever. No trauma. He denies lifting or straining prior to the onset of the pain. Associated Symptoms: Reports nausea; Denies fever(s) and vomiting Review of Systems 2 Const: Denies: fever(s) GI: Reports: abdominal pain, nausea and dysphagia; Denies: vomiting PFSH ED 2 PFSH: Medical History Dental caries Lipoma of back Osteoarthritis History of nonmelanoma skin cancer Macular degeneration Rheumatoid arthritis Left ventricular hypertrophy HTN (hypertension) Surgical History S/P colon resection Family History Father Myocardial infarction Grandfather Myocardial infarction Grandmother Cancer Social History Smoking and tobacco/nicotine status: never used tobacco/nicotine Second hand smoke exposure: No Substance/Drug Use: never Lives independently: Yes Household members: none Marital status: Current occupational status: retired Current gender identity: Male Special mine needs: No Physical Exam 2 Const: COMMON NORMALS: no acute distress and healthy appearing HENMT: COMMON NORMALS: moist oral mucous membranes and oropharynx normal T EETH & GINGIVA: Yes abnormal tooth and associated gingiva, Yes caries and Yes teeth discoloration Resp: COMMON NORMALS: normal respiratory effort and clear to auscultation bilaterally AUSCULTATION: clear to auscultation bilaterally Cardio: COMMON NORMALS: regular rate, regular rhythm and No murmurs present (Cardio) RATE: regular rate RHYTHM: regular rhythm GI: OTHER: Hypoactive bowel sounds, large incisional hernia in the right lower quadrant, about the size of a basketball. Region of the hernia is soft but tender in the lower portion. It is not reducible. There is no overlying skin erythema. Extremity: COMMON NORMALS: full ROM, capillary refill normal and no pedal edema Skin: COMMON NORMALS: no rashes or lesions noted GENERAL SKIN EXAM: no rashes or lesions noted and no erythema Course 2 ED course: See MDM Reevaluation(s): Reevaluation #1: Discussed evaluation with the patient. He has been given IV morphine for pain with some improvement. Will place an NG tube and initiate maintenance IV fluids. Will plan for admission. Time: 15:53 Vital Signs: Vital signs: Vital Signs Temperature 97.8 F 04/29/23 13:12 Pulse Rate 61 04/29/23 13:12 Respiratory Rate 18 04/29/23 14:34 Blood Pressure 163/81 04/29/23 13:12 Pulse Oximetry 94 04/29/23 14:34 Oxygen Delivery Me thod Room Air 04/29/23 13:12 [facility] - Abdominal Pain Medical Decision Making 82-year-old male who presents with sudden onset right lower quadrant abdominal pain associated with a very large incisional hernia. Suspect patient has incarceration versus strangulation of the abdominal wall hernia. Other etiologies include diverticulitis, ureteral stones, colitis, ischemic bowel Medical Records I reviewed the patient's medical records. 82-year-old male who has a large ventral hernia who presents with sudden onset of right lower quadrant abdominal pain with associated nausea, no flatus since the pain started. On examination, he does have a very large nonreducible hernia which is very tender. Patient's laboratory studies are his white blood cell count is 13.3 which is slightly elevated. His of the labs are unremarkable. Urinalysis is negative. CT of the abdomen and pelvis does show this large ventral incisional hernia with both small bowel and the ascending colon. There is a partial small bowel obstruction with in the contents of this hernia. Will place an NG tube per discussion with surgery. Will plan for admission to the hospitalist. Lab Data 04/29/23 14:17 04/29/23 14:17 Labs/Radiology: Radiology Impressions Abdomen/Pelvis CT 04/29/23 14:10 IMPRESSION: 1. Large right-sided ventral abdominal hernia with findings suggestive of low-grade partial small bowel obstruction. Surgical evaluation is recommended. Laboratory Results WBC 13.38 10^3/uL (3.29-11.43) H 04/29/23 14:17 RBC 5.28 10^6/uL (3.85-5.65) 04/29/23 14:17 Hgb 16.70 g/dL (11.27-16.99) 04/29/23 14:17 Hct 49.2 % (37-53) 04/29/23 14:17 MCV 93.2 fl (82-101) 04/29/23 14:17 MCH 31.6 pg (27-33) 04/29/23 14:17 MCHC 33.9 g/dL (30-55) 04/29/23 14:17 RDW 13.2 % (12.1-15.1) 04/29/23 14:17 Plt Count 256 10^3/cmm (157-399) 04/29/23 14:17 MPV 9.9 fL (7.4-10.4) 04/29/23 14:17 Neut % (Auto) 71.2 % 04/29/23 14:17 Lymph % (Auto) 17.7 % 04/29/23 14:17 [place] % (Auto) 9.1 % 04/29/23 14:17 Eos % (Auto) 1.3 % 04/29/23 14:17 Baso % (Auto) 0.3 % 04/29/23 14:17 Neut # (Auto) 9.52 10^3/uL (1.8-7.7) H 04/29/23 14:17 Lymph # (Auto) 2.4 10^3/uL (0.8-4.8) 04/29/23 14:17 [place] # (Auto) 1.2 10^3/uL (0.2-0.9) H 04/29/23 14:17 Eos # (Auto) 0.2 10^3/uL (0.0-0.8) 04/29/23 14:17 Baso # (Auto) 0.0 10^3/uL (0.0-0.1) 04/29/23 14:17 Nucleated RBC % (auto) 0 % 04/29/23 14:17 Nucleated RBCs # 0.0 /100WBC 04/29/23 14:17 Sodium 140 mmol/L (136-145) 04/29/23 14:17 Potassium 4.2 mmol/L (3.5-5.1) 04/29/23 14:17 Chloride 104 mmol/L (98-107) 04/29/23 14:17 Carbon Dioxide 25 mmol/L (22-29) 04/29/23 14:17 Anion Gap 15.2 (5-19) 04/29/23 14:17 BUN 17 mg/dL (8-23) 04/29/23 14:17 Creatinine 1.2 mg/dL (0.7-1.2) 04/29/23 14:17 GFR Calculation Not Reportable 04/29/23 14:17 Glucose 100 mg/dL (65-115) 04/29/23 14:17 Calculated Osmolality 292 mOsm/kg (285-295) 04/29/23 14:17 Lactic Acid 1.2 mmol/L (0.5-2.2) 04/29/23 14:17 Calcium 9.6 mg/dL (8.5-10.5) 04/29/23 14:17 Total Bilirubin 0.4 mg/dL (0.15-1.2) 04/29/23 14:17 AST 16 U/L (0-40) 04/29/23 14:17 ALT 16 U/L (0-41) 04/29/23 14:17 Alkaline Phosphatase 107 U/L (40-130) 04/29/23 14:17 Total Protein 7.6 g/dL (6.6-8.7) 04/29/23 14:17 Albumin 4.0 g/dL (3.5-5.2) 04/29/23 14:17 Globulin 3.6 g/dL (1.3-4.6) 04/29/23 14:17 All radiology interpretation(s) finalized by discharge ED provider radiology interpretation(s): CT scan of the abdomen pelvis does show the very large hernia with both small bowel and the large ascending colon outside of the abdominal space, patient has a small bowel obstruction with in the ventral wall hernia but no incarceration or strangulation. Other Data I discussed case with Dr. Hummel, general surgeon who recommends NG tube placement and IV fluids. Recommends admission to the hospitalist. I have discussed the case with the hospitalist who will see the patient for admission. Discharge Plan Discharge Patient Disposition: Admitted As Inpatient Clinical Impression: Partial small bowel obstruction, Ventral hernia with bowel obstruction Condition: Stable Coding Level of Care Code ED Affiliate Marketing Coordinator for [facility] D [facility]
[2023-04-29 14:23] LABS: Basophils % 0.3 %; Eosinophils # 0.2 10^3/uL (0.0-0.8); Eosinophils % 1.3 %; Hematocrit 49.2 % (37-53); Lymphocytes # 2.4 10^3/uL (0.8-4.8); Lymphocytes % 17.7 %; Mean Corpuscular HGB Conc 33.9 g/dL (30-55); Mean Corpuscular Hemoglobin 31.6 pg (27-33); Mean Corpuscular Volume 93.2 fl (82-101); Mean Platelet Volume 9.9 fL (7.4-10.4); Monocytes # 1.2 10^3/uL (0.2-0.9); Monocytes % 9.1 %; Neutrophils # 9.52 10^3/uL (1.8-7.7); Neutrophils % 71.2 %; Nucleated Red Blood Cells % 0 %; Platelet Count 256 10^3/cmm (157-399); Red Blood Count 5.28 10^6/uL (3.85-5.65); Red Cell Distribution Width 13.2 % (12.1-15.1); White Blood Count 13.38 10^3/uL (3.29-11.43)
[2023-04-29] MEDS: morphine 4 mg/mL SDV 1 mL IVP ×2 (14:34→20:13)
[2023-04-29] MEDS: ondansetron 2 mg/ML SDV 2 mL 4 MG IVP (14:34)
[2023-04-29 14:39] LABS: Alanine Aminotransferase 16 U/L (0-41); Alkaline Phosphatase 107 U/L (40-130); Anion Gap 15.2 (5-19); Aspartate Amino Transferase 16 U/L (0-40); Blood Urea Nitrogen 17 mg/dL (8-23); Calcium 9.6 mg/dL (8.5-10.5); Carbon Dioxide 25 mmol/L (22-29); Chloride 104 mmol/L (98-107); Creatinine Clr Calc Pharmacy 58.3426; Globulin 3.6 g/dL (1.3-4.6); Glucose 100 mg/dL (65-115); Osmolality Calculated 292 mOsm/kg (285-295); Potassium 4.2 mmol/L (3.5-5.1); Sodium 140 mmol/L (136-145); Total Bilirubin 0.4 mg/dL (0.15-1.2); Total Protein 7.6 g/dL (6.6-8.7)
[2023-04-29 14:40] LABS: Lactic Sepsis W/Reflex 1.2 mmol/L (0.5-2.2)
[2023-04-29] MEDS: iohexol 350 mg/mL 500 mL Btl (per mL) IV (14:50)
--- NOTE | 2023-04-29 15:09 | PC.PHAR ---
Addendum entered by Sheba Mccoy 04/29/23 15:14: VERIFIED MEDICATIONS WITH PHARMACY AND THEN WITH NURSE BURRELL. 04/29/23 Original Note: PT STATES NURSE SETS UP HIS MEDICATIONS. [facility] [phone]-NURSE BURRELL.
[2023-04-29 15:58] LABS: Add Urine Microscopic? YES; Bilirubin Urine Neg (Negative); Blood Urine Neg (Negative); Glucose Urine UA 4+ (Normal); Ketones Urine 1+ (Negative); Leukocyte Esterase Urine 2+ (Negative); Nitrate Urine Negative (Negative); Protein Urine Neg (Negative); RBC Urine RARE /hpf (0-2); Specific Gravity, Urine 1.015 (1.005-1.030); Urine Appearance Clear (CLEAR); Urine Color Yellow (Yellow); Urobilinogen Urine Neg (Negative); pH Urine 5 (5-7)
[2023-04-29 15:59] LABS: Add Urine Culture? Yes; Bacteria Urine TRACE /hpf; Squamous Epithelial Cell Urine 0-4 /hpf (0-5); WBC Urine 15-25 /hpf (0-5)
--- NOTE | 2023-04-29 16:23 | XRR_ITS ---
PROCEDURE INFORMATION: Exam: XR Abdomen Exam date and time: 04/29/2023 4:28 PM Age: 82 years old Clinical indication: Device placement; Gi device; Nasogastric tube; Additional info: Ng tube placement TECHNIQUE: Imaging protocol: Radiologic exam of the abdomen. Views: Frontal supine view of the abdomen. 1 View. COMPARISON: CT abdomen pelvis w con* [id number] 04/29/2023 2:45 PM FINDINGS: Gastrointestinal tract: Enteric tube in place with tip in the region of the gastric body and side hole just above the GE junction. Recommend advancing approximately 3 cm and repeating the radiograph. Bones/joints: No evidence of acute osseous abnormality. XR/XR KUB [id number] IMPRESSION: 1. Enteric tube in place with tip in the region of the gastric body and side hole just above the GE junction. Recommend advancing approximately 3 cm and repeating the radiograph.
[2023-04-29] MEDS: cetacaine Spray 5 gm Can 1 SPRAY TOPICAL (17:06)
[2023-04-29] MEDS: sodium chlor 0.45% +KCl 20 mEq 20 MEQ/1,000 ML BAG 125 MEQ IV (18:16)
--- NOTE | 2023-04-29 18:27 | P.CONIM_ITS ---
Providers/Reason For Consult 2 Consulting Physician/Specialty*: Dr. Demetrius Hummel, DO/General surgery Reason for Consult*: Abdominal pain Attending Physician: Kat Ko MD Primary Care Provider: Curtis Adair MD History of Present Illness History of Present Illness Jens Poe is a 82 year old male who has a recurrent incisional hernia with complete loss of domain presented to the hospital with a 1 day history of diffuse abdominal pain and nausea. He reports that he has not passed flatus or had a bowel movement since this morning. He denies any emesis. Denies any hematemesis and/or melena. The pain is dull and constant and does not radiate. Palpation makes pain worse. Nothing seems makes pain better. CT abdomen pelvis shows a recurrent incisional hernia with complete loss of domain along with a partial small bowel obstruction without transition point. Review of Systems 2 General: Reports: 10 or more systems reviewed and unremarkable except in HPI and below Medications/Allergies Home Medications Medication Instructions Recorded Confirmed Last Taken Type sennosides 15 mg tablet (Laxative 15 mg PO DAILY PRN Constipation 10/23/21 04/29/23 11/10/21 History (sennosides)) blood-glucose meter #1 ea 02/12/22 04/29/23 Unknown Rx lancets #100 ea 02/12/22 04/29/23 Unknown Rx nitroglycerin 0.4 mg sublingual 0.4 mg sublingual Q5M PRN Chest 10/09/22 04/29/23 Unknown Rx tablet Pain #20 tabs walker with large wheels and seat #1 ea 12/02/22 04/29/23 Unknown Rx atorvastatin 40 mg tablet 40 mg PO DAILY #30 tabs 12/18/22 04/29/23 04/28/23 Rx blood sugar diagnostic (Blood #50 ea 02/18/23 04/29/23 Unknown Rx Glucose Test strips) amlodipine 5 mg tablet 2.5 mg PO QPM 04/29/23 04/29/23 04/28/23 History empagliflozin 25 mg tablet 25 mg PO QAM 04/29/23 04/29/23 04/29/23 History (Jardiance) glimepiride 2 mg tablet 2 mg PO QAM 04/29/23 04/29/23 04/28/23 History isosorbide mononitrate 30 mg 30 mg PO QAM 04/29/23 04/29/23 04/29/23 History tablet,extended release 24 hr lisinopril 40 mg tablet 40 mg PO QAM 04/29/23 04/29/23 04/29/23 History metoprolol succinate 25 mg 25 mg PO QAM 04/29/23 04/29/23 04/29/23 History tablet,extended release 24 hr Allergies Allergy/AdvReac Type Severity Reaction Status Date / Time Sulfa (Sulfonamide Allergy Unknown Unknown Verified 04/29/23 13:16 Antibiotics) Current Medications Generic Name Dose Route Start Last Admin Trade Name Freq PRN Reason Stop Dose Admin Potassium Chloride/Sodium Chloride 20 meq in 1,000 mls @ 125 mls/hr 04/29/23 16:00 04/29/23 18:16 Sodium Chlor 0.45% +Kcl 20 Meq IV 125 mls/hr .Q8H ERIK Administration Morphine Sulfate 4 mg 04/29/23 14:10 04/29/23 14:34 Morphine 4 Mg/Ml Sdv 1 Ml IVP 4 mg Q15M PRN Administration pain PFSH Acute 2 PFSH: Medical History Dental caries Lipoma of back Osteoarthritis History of nonmelanoma skin cancer Macular degeneration Rheumatoid arthritis Left ventricular hypertrophy HTN (hypertension) Surgical History S/P colon resection Family History Father Myocardial infarction Grandfather Myocardial infarction Grandmother Cancer Social History Smoking and tobacco/nicotine status: never used tobacco/nicotine Second hand smoke exposure: No Substance/Drug Use: never Lives independently: Yes Household members: none Marital status: Current occupational status: retired Current gender identity: Male Special mine needs: No Vitals/I&O/Wt Last Vital Signs Temp 97.8 F 04/29/23 13:12 Pulse 65 04/29/23 15:30 Resp 18 04/29/23 14:34 BP 173/98 04/29/23 15:30 Pulse Ox 97 04/29/23 15:30 O2 Del Method Room Air 04/29/23 14:16 Weight last 48 hrs Weight 230 lb Physical Exam 2 Narrative: General : Patient is well developed , no acute distress, oriented x3 Head : Normal cephalic, a-traumatic. Ears : Pinnae and external canal are normal. Hearing is normal. Eyes : PERRLA, Sclera and injection are normal. No conjunctival discharge. Nose : Mucous membranes are without erythema. Throat : buccal mucosa is normal, gums are without significant recession or hypertrophy. Lungs : Equal chest rise bilaterally, no use of accessory muscles, trachea is midline. Cor : Rate and rhythm are normal. Abdomen : Soft, distended, mild diffuse tenderness, there is an extremely large recurrent incisional hernia with complete loss of domain. Hernia measures greater than [address] no g/r/m Extremities : No edema, no cyanosis or clubbing, dorsalis pedis pulses are present bilaterally, non-tender to palpation of calves. Upper extremities are normal bilaterally. Back : non-tender to palpation, no CVA tenderness. Neuro : CN II - XII intact, Upper and lower extremities have equal and full strength Data 04/29/23 14:17 04/29/23 14:17 A&P Assessment and plan (1) Partial small bowel obstruction: (2) Recurrent incisional hernia: Plan N.p.o./NG tube to low intermittent wall suction IV fluids 225 cc/h Aggressive electrolyte replacement No acute surgical management. If he does not respond to conservative management within a few days or if he gets worse he will need a diagnostic laparoscopy versus exploratory laparotomy Medical management per hospitalist Coding Level of Care Code 65721 Diagnoses Partial small bowel obstruction K56.600 Recurrent incisional hernia K43.2
--- NOTE | 2023-04-29 20:21 | XRR_ITS ---
PROCEDURE INFORMATION: Exam: XR Chest Exam date and time: 04/29/2023 9:36 PM Age: 82 years old Clinical indication: Device placement; Ng tube; Additional info: Ng tube slight advance per recommendation. TECHNIQUE: Imaging protocol: Radiologic exam of the chest. Views: 1 view. COMPARISON: CR XR chest 1V portable [id number] 11/10/2021 1:18 PM FINDINGS: Other: Enteric tube in place with tip in the region of the gastric body and side hole distal to the GE junction. Bones/joints: No evidence of acute osseous abnormality. XR/XR chest 1V portable [id number] IMPRESSION: 1. Enteric tube in place with tip in the region of the gastric body and side hole distal to the GE junction.
--- NOTE | 2023-04-29 22:23 | P.HP_ITS ---
Providers/Chief Complaint 2 Admitting Physician: Kat Ko MD Primary Care Provider: Curtis Adair MD Chief Complaint: abd pain History of Present Illness Jens Poe is a 82 yo w/ b/l macular degeneration, Rheumatoid Arthritis, a large RLQ abdominal hernia, who presented to the ED on 04/29/2022 w/ complaints of RLQ abdominal pain at the site of this RLQ abdominal hernia. The patient states that the RLQ abdominal hernia developed in a R. partial colectomy secondary to what sounds like a volvulus, my colon twisted around itself in 1991. Attempts at a repair with mesh has been unsuccessful. The patient states that he was sitting in his apartment not doing anything, when he started to experience intermittent RLQ abdominal pain that progressed to a constant abdominal pain. He did not take anything for the pain, but he took his regular AM meds this morning. He endorses nausea, but denies vomiting. He endorses having a BM earlier in the AM and endorses passing flatus also. He states that as the abd pain progressed, he no longer passed flatus. He endorses dizziness, light headaches, and tingling in his hands, He denies fever, chills, diarrhea, melena, hematochezia, dysuria, hematuria, increased urinary urgency/frequency, LOC, headaches. In the ED, he was hypertensive to 197/94mmHg. His labs showed a leukocytosis of 13.4 and a lactic acid of 1.2. A CT abdomen/pelvis was done that showed a large R. Sided ventral abdominal hernia w/ findings suggestive of a low-grade partial SBO. Surgical evaluation was recommended. The general surgeon on-call was consulted, who recommended an NG tube placement. The NG tube was placed, the patient was admitted. On admission, he requested something for sleep, and he stated that the pain medication given to him was helpful for his abdominal discomfort. Review of Systems 2 Const: Reports: malaise; Denies: fever(s) or chills Eyes: Denies: change in vision ENMT: Reports: other (no sore throat or dysphagia); Denies: ear or mastoid pain, ear discharge, nasal discharge or nasal congestion Card: Reports: lightheadedness; Denies: chest pain, palpitations or swelling of feet/ankles Resp: Denies: dyspnea GI: Reports: abdominal pain and nausea; Denies: vomiting, dysphagia, diarrhea, constipation, hematochezia or melena : Denies: difficulty urinating, dysuria, urinary frequency, urinary urgency or hematuria Musc: Denies: extremity pain or joint pain Skin/Breast: Denies: rash or sores Neuro: Reports: other (tingling in the b/l hands. ); Denies: headache(s) or dizziness Psych: Denies: anxiety, depression, suicidal ideation or homicidal ideation Endo: Denies: cold intolerance or heat intolerance Guido/Lymph: Reports: easy bruising; Denies: easy bleeding All/Imm: Denies: food intolerance Medications/Allergies Home Medications Medication Instructions Recorded Confirmed Last Taken Type sennosides 15 mg tablet (Laxative 15 mg PO DAILY PRN Constipation 10/23/21 04/29/23 11/10/21 History (sennosides)) blood-glucose meter #1 ea 02/12/22 04/29/23 Unknown Rx lancets #100 ea 02/12/22 04/29/23 Unknown Rx nitroglycerin 0.4 mg sublingual 0.4 mg sublingual Q5M PRN Chest 10/09/22 04/29/23 Unknown Rx tablet Pain #20 tabs walker with large wheels and seat #1 ea 12/02/22 04/29/23 Unknown Rx atorvastatin 40 mg tablet 40 mg PO DAILY #30 tabs 12/18/22 04/29/23 04/28/23 Rx blood sugar diagnostic (Blood #50 ea 02/18/23 04/29/23 Unknown Rx Glucose Test strips) amlodipine 5 mg tablet 2.5 mg PO QPM 04/29/23 04/29/23 04/28/23 History empagliflozin 25 mg tablet 25 mg PO QAM 04/29/23 04/29/23 04/29/23 History (Jardiance) glimepiride 2 mg tablet 2 mg PO QAM 04/29/23 04/29/23 04/28/23 History isosorbide mononitrate 30 mg 30 mg PO QAM 04/29/23 04/29/23 04/29/23 History tablet,extended release 24 hr lisinopril 40 mg tablet 40 mg PO QAM 04/29/23 04/29/23 04/29/23 History metoprolol succinate 25 mg 25 mg PO QA 04/29/23 04/29/23 04/29/23 History tablet,extended release 24 hr Allergies Allergy/AdvReac Type Severity Reaction Status Date / Time Sulfa (Sulfonamide Allergy Unknown Unknown Verified 04/29/23 13:16 Antibiotics) PFSH Acute 2 PFSH: Medical History Dental caries Lipoma of back Osteoarthritis History of nonmelanoma skin cancer Macular degeneration Rheumatoid arthritis Left ventricular hypertrophy HTN (hypertension) Surgical History S/P colon resection Family History Father Myocardial infarction Grandfather Myocardial infarction Grandmother Cancer Social History Smoking and tobacco/nicotine status: never used tobacco/nicotine Second hand smoke exposure: No Substance/Drug Use: never Lives independently: Yes Household members: none Marital status: Current occupational status: retired Current gender identity: Male Special mine needs: No Vitals/I&O/Wt Last Vital Signs Temp 97.6 F 04/29/23 20:00 Pulse 70 04/29/23 20:00 Resp 18 04/29/23 20:13 BP 177/81 04/29/23 20:00 Pulse Ox 94 04/29/23 20:00 O2 Del Method Room Air 04/29/23 20:53 04/29/23 04/29/23 04/29/23 06:59 14:59 22:59 Output Total 300 / 300 Balance -300 / -300 Weight last 48 hrs Weight 104.326 kg Weight 104.326 kg Physical Exam 2 Const: GENERAL APPEARANCE: cooperative; not comfortable NUTRITIONAL APPEARANCE: overweight O RIENTATION/CONSCIOUSNESS: Yes awake, Yes oriented to person, Yes oriented to place and Yes oriented to time HENMT: HEAD & SCALP: normocephalic and atraumatic FACE & SINUS: normal facial exam NOSE: Normal external nose present EXTERNAL EAR: Yes external ears normal MOUTH: Normal oral and palatal mucosa present THROAT: p osterior oropharynx normal OTHER: NGT in place Eye: OTHER: Normal conjunctiva bilaterally, PERRL bilaterally, EOMI bilaterally. Neck/C-Spine: GENERAL: Yes normal visual inspection and Yes trachea midline THYROID: Thyroid normal CAROTIDS: No bruit CERVICAL SPINE: Yes cervical ROM normal Lymph: OTHER: No cervical or supraclavicular lymphadenopathy. Resp: OTHER: CTAB anteriorly, with no wheezes rales or rhonchi. Cardio: OTHER: RRR, no murmurs, rubs, gallops, or clicks. No carotid bruits bilaterally. 2+ radial and 2+ dorsalis pedis pulses appreciated bilaterally. GI: OTHER: BS+, large right lower quadrant ventral abdominal hernia noted, nontender to palpation Extremity: GENERAL: No clubbing, No cyanosis and No deformity Neuro: COMMON NORMALS: patient oriented x3 and CN's II-XII intact bilaterally CRANIAL NERVES: Yes CN normal except as noted SPEECH: speech normal S ENSORY EXAM: No sensory level loss detected MOTOR EXAM: No 5/5 motor strength present throughout Psych: APPEARANCE: Yes grossly normal and Yes well kempt ATTITUDE: Yes calm and Yes engaged ACTIVITY/MOTOR BEHAVIOR: Yes appropriate eye contact S PEECH: Yes normal speech MOOD & AFFECT: Yes euthymic mood THOUGHT PROCESS: Normal thought process present THOUGHT CONTENT: Yes Normal thought content present ATTENTION/CONCENTRATION: Yes attention grossly intact M ALONSO/COGNITION: Yes memory grossly intact Skin: GENERAL SKIN EXAM: no rashes or lesions noted Data 04/30/23 04:33 04/30/23 04:33 A&P Assessment and plan (1) HTN (hypertension): Qualifiers: Hypertension type: essential hypertension Qualified Code(s): I10 - Essential (primary) hypertension (2) Diabetes: Qualifiers: Diabetes mellitus type: type 2 Diabetes mellitus longterm insulin use: without petroleum terminal plant operator use Diabetes mellitus complication status: with oral complications Diabetes mellitus complication detail: with periodontal disease Qualified Code(s): 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 (3) Macular degeneration: Qualifiers: Nonexudative macular degeneration stage: unspecified stage Eye laterality: bilateral (4) Partial small bowel obstruction: (5) Ventral hernia with bowel obstruction: (6) Rheumatoid arthritis: Qualifiers: Rheumatoid arthritis location: unspecified site Rheumatoid factor presence: with rheumatoid factor Qualified Code(s): M05.9 - Rheumatoid arthritis with rheumatoid factor, unspecified Plan Jens Poe is a 82 yo w/ b/l macular degeneration, Rheumatoid Arthritis, a large RLQ abdominal hernia, who presented to the ED on 04/29/2022 w/ complaints of RLQ abdominal pain at the site of this RLQ abdominal hernia. The patient states that the RLQ abdominal hernia developed in a R. partial colectomy secondary to what sounds like a volvulus, my colon twisted around itself in 1991. Attempts at a repair with mesh has been unsuccessful. In the ED, he was hypertensive to 197/94mmHg. His labs showed a leukocytosis of 13.4 and a lactic acid of 1.2. A CT abdomen/pelvis was done that showed a large R. Sided ventral abdominal hernia w/ findings suggestive of a low-grade partial SBO. Surgical evaluation was recommended. The general surgeon on-call was consulted, who recommended an NG tube placement. The NG tube was placed, the patient was admitted. #Partial SBO: - Gen Surgeon consulted from the ED. Appreciate recs. - D/c'ed D5 1/2NS + 20mEQ K and start d5 1/2 NS at 75cc/hr. - Monitor electrolytes. Strict Is & Os. -Dilaudid every 4 as needed for pain #Large R. sided ventral abdominal hernia - Mgmt per surgery #non-IDDM2 - low dose SSI for days and nights ordered. NPO for now #HTN: IV Hydralazine w/ Parameters #HLD - NPO for now #CAD: diagnosed on 11/13/2021 nuclear medicine stress test. NPO for now. #Rheumatoid Arthritis: He manages it with Tylenol. 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 He states that sulfa drugs made his urine red. #Insomnia: Lorazepam 1mg IVP x 1 DVT ppx: Lovenox Attestations 2 Medical Necessity Statement*: The patient will require greater than 2 midnights hospitalization. 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, without long-term current use of insulin E11.630 Diabetes mellitus type: type 2 Diabetes mellitus longterm insulin use: without petroleum terminal plant operator use Diabetes mellitus complication status: with oral complications Diabetes mellitus complication detail: with periodontal disease Macular degeneration H35.30 Nonexudative macular degeneration stage: unspecified stage Eye laterality: bilateral Partial small bowel obstruction K56.600 Ventral hernia with bowel obstruction K43.6 Rheumatoid arthritis with positive rheumatoid factor, involving unspecified site M05.9 Rheumatoid arthritis location: unspecified site Rheumatoid factor presence: with rheumatoid factor
[2023-04-29] MEDS: LORazepam 2 mg/mL INJ 10 mL MDV 1 MG IVP (23:28)
[2023-04-29] MEDS: enoxaparin 40 mg/0.4 mL Syringe SUBCUT (23:28)
[2023-04-29] MEDS: dextrose 5%-sod chloride 0.45% 1,000 ML 75 ML IV (23:31)
[2023-04-30] VITALS (11 sets, daily range): BP systolic 155–192; BP diastolic 71–89; PULSE 60–77; RESP 14–19; TEMP 36.4–37; O2SAT 92–95
[2023-04-30] MEDS: hyDRALAzine 20 mg/mL INJ 1 mL 10 MG IVP ×4 (00:35→22:16)
[2023-04-30 01:11] LABS: Glucose Point of Care 109 mg/dL (70-110)
[2023-04-30 05:35] LABS: Basophils % 0.3 %; Eosinophils # 0.3 10^3/uL (0.0-0.8); Eosinophils % 2.5 %; Hematocrit 46.7 % (37-53); Lymphocytes # 1.8 10^3/uL (0.8-4.8); Lymphocytes % 15.6 %; Mean Corpuscular HGB Conc 33.4 g/dL (30-55); Mean Corpuscular Hemoglobin 31.6 pg (27-33); Mean Corpuscular Volume 94.7 fl (82-101); Mean Platelet Volume 10.2 fL (7.4-10.4); Monocytes % 8.8 %; Neutrophils # 8.29 10^3/uL (1.8-7.7); Neutrophils % 72.3 %; Nucleated Red Blood Cells % 0 %; Platelet Count 200 10^3/cmm (157-399); Red Blood Count 4.93 10^6/uL (3.85-5.65); Red Cell Distribution Width 13.3 % (12.1-15.1); White Blood Count 11.48 10^3/uL (3.29-11.43)
[2023-04-30 05:36] LABS: Glucose Point of Care 118 mg/dL (70-110)
[2023-04-30 05:51] LABS: Estmated Average Glucose 148; Hemoglobin A1C 6.8 % (4.0-6.0)
[2023-04-30 05:55] LABS: Alanine Aminotransferase 14 U/L (0-41); Albumin Level 3.4 g/dL (3.5-5.2); Alkaline Phosphatase 94 U/L (40-130); Anion Gap 13.8 (5-19); Aspartate Amino Transferase 17 U/L (0-40); Blood Urea Nitrogen 15 mg/dL (8-23); Calcium 8.5 mg/dL (8.5-10.5); Carbon Dioxide 24 mmol/L (22-29); Chloride 105 mmol/L (98-107); Creatinine Clr Calc Pharmacy 79.1403; Glucose 112 mg/dL (65-115); Magnesium 2.1 mg/dL (1.7-2.3); Osmolality Calculated 290 mOsm/kg (285-295); Phosphorus 2.8 mg/dL (2.5-4.5); Potassium 3.8 mmol/L (3.5-5.1); Sodium 139 mmol/L (136-145); Total Bilirubin 0.6 mg/dL (0.15-1.2); Total Protein 6.4 g/dL (6.6-8.7)
[2023-04-30] MEDS: HYDROmorphone 1 mg/mL INJ 1 mL 0.5 MG IVP ×2 (10:38→17:49)
[2023-04-30 10:44] LABS: Glucose Point of Care 99 mg/dL (70-110)
[2023-04-30 16:44] LABS: Glucose Point of Care 110 mg/dL (70-110)
[2023-04-30] MEDS: famotidine 20 mg/2 mL INJ IVP (17:49)
[2023-04-30] MEDS: dextrose 5%-sod chloride 0.45% 1,000 ML 75 ML IV (17:49)
--- NOTE | 2023-04-30 18:42 | P.PN_ITS ---
Subjective 2 Subjective: Patient's NGT was no longer to suction at the time that he was seen. Per discussion with the patient's nurse, the NG T was previously to suction, until later this afternoon. On inspection of the NGT output, it had not changed much from when I admitted him. The patient tells me that he had a BM earlier this morning. He had abdominal pain, and was given medication for it. He endorses lightheadedness, but feels that it is due to being NPO. He denies fever, chills, nausea, vomiting, CP, palpitations, SOB, or any symptoms. Vitals/I&O/Wt Last Vital Signs Temp 97.8 F 04/30/23 14:52 Pulse 77 04/30/23 14:52 Resp 18 04/30/23 17:49 BP 166/82 04/30/23 14:52 Pulse Ox 94 04/30/23 14:52 O2 Del Method Room Air 04/30/23 14:52 04/30/23 04/30/23 04/30/23 06:59 14:59 22:59 Intake Total 1000 / 1000 Output Total 400 / 700 170 / 170 Balance -400 / -700 830 / 830 Weight last 48 hrs Weight 108.097 kg Weight 104.326 kg Weight 104.326 kg Physical Exam 2 Const: COMMON NORMALS: patient oriented x3 GENERAL APPEARANCE: cooperative and well kempt; not comfortable NUTRITIONAL APPEARANCE: overweight O RIENTATION/CONSCIOUSNESS: Yes awake, Yes oriented to person, Yes oriented to place and Yes oriented to time HENMT: COMMON NORMALS: normocephalic, atraumatic, external ears normal and Normal external nose present HEAD & SCALP: normocephalic and atraumatic F TIFFANIE & SINUS: normal facial exam NOSE: Normal external nose present E XTERNAL EAR: Yes external ears normal MOUTH: Normal oral and palatal mucosa present THROAT: posterior oropharynx normal OTHER: NGT in place Eye: OTHER: Normal conjunctiva bilaterally, PERRL bilaterally, EOMI bilaterally. Neck/C-Spine: COMMON NORMALS: Thyroid normal GENERAL: Yes normal visual inspection and Yes trachea midline THYROID: Thyroid normal CAROTIDS: No bruit CERVICAL SPINE: Yes cervical ROM normal Lymph: OTHER: No cervical or supraclavicular lymphadenopathy. Resp: OTHER: CTAB anteriorly, with no wheezes rales or rhonchi. Cardio: OTHER: RRR, no murmurs, rubs, gallops, or clicks. No carotid bruits bilaterally. 2+ radial and 2+ dorsalis pedis pulses appreciated bilaterally. GI: OTHER: BS+, large right lower quadrant ventral abdominal hernia noted, nontender to palpation Extremity: GENERAL: No clubbing, No cyanosis and No deformity Neuro: COMMON NORMALS: patient oriented x3 and CN's II-XII intact bilaterally SENSORIUM/ORIENTATION: Yes oriented to person, Yes oriented to place and Yes oriented to time CRANIAL NERVES: Yes CN normal except as noted SPEECH: s peech normal SENSORY EXAM: No sensory level loss detected MOTOR EXAM: No 5/5 motor strength present throughout Psych: COMMON NORMALS: Normal thought process present and speech normal A PPEARANCE: Yes grossly normal and Yes well kempt ATTITUDE: Yes calm and Yes engaged ACTIVITY/MOTOR BEHAVIOR: Yes appropriate eye contact SPEECH: Yes normal speech MOOD & AFFECT: Yes euthymic mood THOUGHT PROCESS: Normal thought process present THOUGHT CONTENT: Yes Normal thought content present ATTENTION/CONCENTRATION: Yes attention grossly intact MEMORY/COGNITION: Yes memory grossly intact Skin: COMMON NORMALS: no rashes or lesions noted GENERAL SKIN EXAM: no rashes or lesions noted Data 04/30/23 04:33 04/30/23 04:33 A&P Assessment and plan (1) HTN (hypertension): Qualifiers: Hypertension type: essential hypertension Qualified Code(s): I10 - Essential (primary) hypertension (2) Diabetes: Qualifiers: Diabetes mellitus type: type 2 Diabetes mellitus jail insulin use: without 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 owner operator truck driver use Diabetes mellitus complication status: with oral complications Diabetes mellitus complication detail: with periodontal disease Qualified Code(s): 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 (3) Macular degeneration: Qualifiers: Nonexudative macular degeneration stage: unspecified stage Eye laterality: bilateral (4) Partial small bowel obstruction: (5) Ventral hernia with bowel obstruction: (6) Rheumatoid arthritis: Qualifiers: Rheumatoid arthritis location: unspecified site Rheumatoid factor presence: with rheumatoid factor Qualified Code(s): M05.9 - Rheumatoid arthritis with rheumatoid factor, unspecified Plan Jens Poe is a 82 yo w/ b/l macular degeneration, Rheumatoid Arthritis, a large RLQ abdominal hernia, who presented to the ED on 04/29/2022 w/ complaints of RLQ abdominal pain at the site of this RLQ abdominal hernia. The patient states that the RLQ abdominal hernia developed in a R. partial colectomy secondary to what sounds like a volvulus, my colon twisted around itself in 1991. Attempts at a repair with mesh has been unsuccessful. In the ED, he was hypertensive to 197/94mmHg. His labs showed a leukocytosis of 13.4 and a lactic acid of 1.2. A CT abdomen/pelvis was done that showed a large R. Sided ventral abdominal hernia w/ findings suggestive of a low-grade partial SBO. Surgical evaluation was recommended. The general surgeon on-call was consulted, who recommended an NG tube placement. The NG tube was placed, the patient was admitted. #Partial SBO: - Consult Gen Surg. Per discussion w/ the Gen Surgeon, start clear liquid diet. He will see the patient in the AM. - Continue d5 1/2 NS at 75cc/hr. - Monitor electrolytes. Strict Is & Os. - Dilaudid every 4 as needed for pain #Large R. sided ventral abdominal hernia - Mgmt per surgery #non-IDDM2 - low dose SSI for days and nights ordered. NPO for now #HTN: IV Hydralazine w/ Parameters #HLD - NPO for now #CAD: diagnosed on 11/13/2021 nuclear medicine stress test. NPO for now. #Rheumatoid Arthritis: He manages it with Tylenol. 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 He states that sulfa drugs made his urine red. #Insomnia: Lorazepam 1mg IVP x 1. DVT ppx: Lovenox Attestations 2 Medical Necessity Statement*: The patient remains hospitalized for his small bowel obstruction. 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
[2023-04-30 21:02] LABS: Glucose Point of Care 107 mg/dL (70-110)
[2023-04-30] MEDS: LORazepam 2 mg/mL INJ 10 mL MDV 1 MG IVP (22:14)
[2023-04-30] MEDS: enoxaparin 40 mg/0.4 mL Syringe SUBCUT (22:18)
[2023-05-01] VITALS (12 sets, daily range): BP systolic 163–180; BP diastolic 70–91; PULSE 66–78; RESP 14–20; TEMP 36.6–37.2; O2SAT 93–98; BMI 33.2
[2023-05-01 00:08] LABS: Glucose Point of Care 117 mg/dL (70-110)
[2023-05-01] MEDS: HYDROmorphone 1 mg/mL INJ 1 mL 0.5 MG IVP ×5 (01:02→20:27)
[2023-05-01 04:43] LABS: Basophils % 0.2 %; Eosinophils # 0.1 10^3/uL (0.0-0.8); Eosinophils % 0.8 %; Hematocrit 46.5 % (37-53); Lymphocytes # 1.4 10^3/uL (0.8-4.8); Lymphocytes % 11.2 %; Mean Corpuscular HGB Conc 33.3 g/dL (30-55); Mean Corpuscular Hemoglobin 32.1 pg (27-33); Mean Corpuscular Volume 96.3 fl (82-101); Mean Platelet Volume 9.9 fL (7.4-10.4); Monocytes # 1.3 10^3/uL (0.2-0.9); Monocytes % 10.1 %; Neutrophils # 9.55 10^3/uL (1.8-7.7); Neutrophils % 77.2 %; Nucleated Red Blood Cells % 0 %; Platelet Count 196 10^3/cmm (157-399); Red Blood Count 4.83 10^6/uL (3.85-5.65); Red Cell Distribution Width 13.2 % (12.1-15.1); White Blood Count 12.37 10^3/uL (3.29-11.43)
[2023-05-01 05:10] LABS: Alanine Aminotransferase 12 U/L (0-41); Albumin Level 3.4 g/dL (3.5-5.2); Alkaline Phosphatase 95 U/L (40-130); Anion Gap 15.6 (5-19); Aspartate Amino Transferase 10 U/L (0-40); Blood Urea Nitrogen 14 mg/dL (8-23); Calcium 8.5 mg/dL (8.5-10.5); Carbon Dioxide 22 mmol/L (22-29); Chloride 103 mmol/L (98-107); Creatinine Clr Calc Pharmacy 79.1403; Globulin 3.2 g/dL (1.3-4.6); Glucose 121 mg/dL (65-115); Magnesium 2.1 mg/dL (1.7-2.3); Osmolality Calculated 286 mOsm/kg (285-295); Potassium 3.6 mmol/L (3.5-5.1); Sodium 137 mmol/L (136-145); Total Protein 6.6 g/dL (6.6-8.7)
[2023-05-01 05:26] LABS: Glucose Point of Care 117 mg/dL (70-110)
[2023-05-01] MEDS: famotidine 20 mg/2 mL INJ IVP ×2 (05:34→17:34)
[2023-05-01] MEDS: dextrose 5%-sod chloride 0.45% 1,000 ML 75 ML IV (05:34)
--- NOTE | 2023-05-01 09:42 | PC.CHAP ---
Pastoral Care Encounter/Spiritual Assessment Type of Contact [] Declined hcc coders visit [] Patient/Family/Request visit [] Outpatient visit [] Follow-up visit [] Physician referral [] Code/Alert [x] Routine visit [] Staff referral [] Actively dying [] Patient sleeping [] Family support [] [] Out of room [] Palliative care [] [] Receiving care in room [] Pre-surgical visit [] Trauma [] Long length of stay [] ICU visit [] Other: Relational/Emotional Strength [x] Patient feels connected with others/family/visitors/staff [] Distress [] Loneliness/isolation [] Abandonment Spirituality of Patient [x] Person of Cristiana [] Attends Rastafari of their Cristiana [x] Believes in Prayer [] Reads Bible or Caodaism materials [] There are Spiritual issues to be addressed Casino Games Dealer Interventions [x] Prayer [] Active listening [] Non-anxious presence [x] Spiritual/emotional support [] Crisis/trauma care [] Spiritual counseling [] Bereavement support [] Provided bereavement packet [] Provided Bible/devotional materials [] Provided toy/stuffed animal, coloring book to patient or family member [] Provided Communion [] Anointing/[place] [] Salvation [x] Completed spiritual assessment [] Other: Impact on Illness or Injury [] Angry [] Fearful [] Anxious [] Often cries [] Exhaustion [] Unable to work [] Unable to attend hinduism [] Unable to walk/stand [] Unable to read [] Unable to drive [] Unable to eat/drink [] Unable to sleep [] Unable to be with family [] Patient intubated [] Other: Summary Time spent with patient 5 min
[2023-05-01] MEDS: ciprofloxacin 400 MG/200 ML PREMIX 200 MG IV ×2 (10:10→20:27)
[2023-05-01] MEDS: hyDRALAzine 20 mg/mL INJ 1 mL 10 MG IVP ×2 (10:10→20:15)
[2023-05-01] MEDS: atorvastatin 40 mg Tablet PO (10:10)
[2023-05-01 11:27] LABS: Glucose Point of Care 154 mg/dL (70-110)
--- NOTE | 2023-05-01 14:43 | P.PN_ITS ---
Subjective 2 Subjective: Patient's NGT was d/c'ed and patient's diet was transitioned. He has been cleared by the surgeon for his Partial SBO. His UA is concerning for a UTI. He was seen at bedside using the bathroom. He denies abdominal pain. He complains of a stiff neck, and feels that it is due to his position in bed. He would like pain medicine for it. He denies any fever, chills, dizziness, light headedness, palpitations, SOB, n/v. He has had a BM. Vitals/I&O/Wt Last Vital Signs Temp 97.8 F 05/01/23 11:31 Pulse 78 05/01/23 11:31 Resp 16 05/01/23 12:00 BP 175/91 05/01/23 11:31 Pulse Ox 95 05/01/23 11:31 O2 Del Method Room Air 05/01/23 11:31 04/30/23 05/01/23 05/01/23 22:59 06:59 14:59 Intake Total 1000 / 1999 881.25 / 2881.25 440 / 440 Output Total 200 / 370 Balance 1000 / 1830 681.25 / 2511.25 440 / 440 Weight last 48 hrs Weight 107.955 kg Weight 108.097 kg Weight 104.326 kg Physical Exam 2 Const: COMMON NORMALS: patient oriented x3 GENERAL APPEARANCE: cooperative and well kempt; not comfortable NUTRITIONAL APPEARANCE: overweight O RIENTATION/CONSCIOUSNESS: Yes awake, Yes oriented to person, Yes oriented to place and Yes oriented to time HENMT: COMMON NORMALS: normocephalic, atraumatic, external ears normal and Normal external nose present HEAD & SCALP: normocephalic and atraumatic F TIFFANIE & SINUS: normal facial exam NOSE: Normal external nose present E XTERNAL EAR: Yes external ears normal MOUTH: Normal oral and palatal mucosa present THROAT: posterior oropharynx normal OTHER: NGT in place Eye: OTHER: Normal conjunctiva bilaterally, PERRL bilaterally, EOMI bilaterally. Neck/C-Spine: COMMON NORMALS: Thyroid normal GENERAL: Yes normal visual inspection and Yes trachea midline THYROID: Thyroid normal CAROTIDS: No bruit CERVICAL SPINE: Yes cervical ROM normal Lymph: OTHER: No cervical or supraclavicular lymphadenopathy. Resp: OTHER: CTAB anteriorly, with no wheezes rales or rhonchi. Cardio: OTHER: RRR, no murmurs, rubs, gallops, or clicks. No carotid bruits bilaterally. 2+ radial and 2+ dorsalis pedis pulses appreciated bilaterally. GI: OTHER: BS+, large right lower quadrant ventral abdominal hernia noted, nontender to palpation Extremity: GENERAL: No clubbing, No cyanosis and No deformity Neuro: COMMON NORMALS: patient oriented x3 and CN's II-XII intact bilaterally SENSORIUM/ORIENTATION: Yes oriented to person, Yes oriented to place and Yes oriented to time CRANIAL NERVES: Yes CN normal except as noted SPEECH: s peech normal SENSORY EXAM: No sensory level loss detected MOTOR EXAM: No 5/5 motor strength present throughout Psych: COMMON NORMALS: Normal thought process present and speech normal A PPEARANCE: Yes grossly normal and Yes well kempt ATTITUDE: Yes calm and Yes engaged ACTIVITY/MOTOR BEHAVIOR: Yes appropriate eye contact SPEECH: Yes normal speech MOOD & AFFECT: Yes euthymic mood THOUGHT PROCESS: Normal thought process present THOUGHT CONTENT: Yes Normal thought content present ATTENTION/CONCENTRATION: Yes attention grossly intact MEMORY/COGNITION: Yes memory grossly intact Skin: COMMON NORMALS: no rashes or lesions noted GENERAL SKIN EXAM: no rashes or lesions noted Data 05/02/23 03:51 05/02/23 03:51 Micro: Microbiology 04/29/23 15:42 Urine Culture - Preliminary Urine,Clean Catch A&P Assessment and plan (1) HTN (hypertension): Qualifiers: Hypertension type: essential hypertension Qualified Code(s): I10 - Essential (primary) hypertension (2) Diabetes: Qualifiers: Diabetes mellitus complication detail: with periodontal disease D iabetes mellitus complication status: with oral complications Diabetes mellitus skilled nursing insulin use: without terminal operations manager use Diabetes mellitus type: type 2 Qualified Code(s): 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 (3) Macular degeneration: Qualifiers: Eye laterality: bilateral Nonexudative macular degeneration stage: u nspecified stage (4) Partial small bowel obstruction: (5) Ventral hernia with bowel obstruction: (6) Rheumatoid arthritis: Qualifiers: Rheumatoid arthritis location: unspecified site Rheumatoid factor presence: with rheumatoid factor Qualified Code(s): M05.9 - Rheumatoid arthritis with rheumatoid factor, unspecified Plan Jens Poe is a 82 yo w/ b/l macular degeneration, Rheumatoid Arthritis, a large RLQ abdominal hernia, who presented to the ED on 04/29/2022 w/ complaints of RLQ abdominal pain at the site of this RLQ abdominal hernia. The patient states that the RLQ abdominal hernia developed in a R. partial colectomy secondary to what sounds like a volvulus, my colon twisted around itself in 1991. Attempts at a repair with mesh has been unsuccessful. In the ED, he was hypertensive to 197/94mmHg. His labs showed a leukocytosis of 13.4 and a lactic acid of 1.2. A CT abdomen/pelvis was done that showed a large R. Sided ventral abdominal hernia w/ findings suggestive of a low-grade partial SBO. Surgical evaluation was recommended. The general surgeon on-call was consulted, who recommended an NG tube placement. The NG tube was placed, the patient was admitted. #Partial SBO: - Consult Gen Surg. Per discussion w/ the Gen Surgeon, start clear liquid diet. He will see the patient in the AM. - d5 / NS at 75cc/hr - d/c on 05/01. - Monitor electrolytes. Strict Is & Os. - Dilaudid every 4 as needed for pain #Large R. sided ventral abdominal hernia - Mgmt per surgery. OK for discharge from Gen Surgery stand point #Leukocytosis: Unclear cause. UA concerning for UTI. Started Cipro empirically. #non-IDDM2 - low dose SSI for days and nights ordered. NPO for now #HTN: Resume home meds. #HLD: Resume home meds #CAD: diagnosed on 11/13/2021 nuclear medicine stress test. Resume home meds #Rheumatoid Arthritis: He manages it with Tylenol. 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 He states that sulfa drugs made his urine red. #Insomnia: Lorazepam 1mg IVP x 1. DVT ppx: Lovenox Attestations 2 Medical Necessity Statement*: The patient remains hospitalized for further workup of his increasing leukocytosis. 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, without long-term current use of insulin E11.630 Diabetes mellitus complication detail: with periodontal disease Diabetes mellitus complication status: with oral complications Diabetes mellitus terminal operations manager insulin use: without skilled nursing use Diabetes mellitus type: type 2 Macular degeneration H35.30 Eye laterality: bilateral Nonexudative macular degeneration stage: unspecified stage Partial small bowel obstruction K56.600 Ventral hernia with bowel obstruction K43.6 Rheumatoid arthritis with positive rheumatoid factor, involving unspecified site M05.9 Rheumatoid arthritis location: unspecified site Rheumatoid factor presence: with rheumatoid factor
--- NOTE | 2023-05-01 15:01 | P.PN_ITS ---
Subjective 2 Subjective: Patient seen and examined. He had a bowel movement yesterday and today and is passing flatus. Tolerating full liquid diet. Vitals/I&O/Wt Last Vital Signs Temp 97.8 F 05/01/23 11:31 Pulse 78 05/01/23 11:31 Resp 16 05/01/23 12:00 BP 175/91 05/01/23 11:31 Pulse Ox 95 05/01/23 11:31 O2 Del Method Room Air 05/01/23 11:31 05/01/23 05/01/23 05/01/23 06:59 14:59 22:59 Intake Total 881.25 / 2881.25 440 / 440 Output Total 200 / 370 Balance 681.25 / 2511.25 440 / 440 Weight last 48 hrs Weight 238 lb Weight 238 lb 5 oz Weight 230 lb Physical Exam 2 Narrative: General: No acute distress, awake alert and oriented x 3 Abdomen: Soft, mildly distended, nontender to palpation, no guarding rebound or masses Data 05/01/23 04:07 05/01/23 04:07 Micro: Microbiology 04/29/23 15:42 Urine Culture - Preliminary Urine,Clean Catch A&P Assessment and plan (1) Partial small bowel obstruction: (2) Recurrent incisional hernia: Plan Soft diet Aggressive electrolyte replacement No acute surgical management. Surgically stable for discharge I do not recommend surgical repair of this hernia as there is no risk of incarceration with a hernia the size and it will certainly recur and risk complication. If he desires hernia repair I will refer him to a tertiary care facility. Medical management per hospitalist Attestations 2 Medical Necessity Statement*: Per primary Coding Level of Care Code Acute Code for Chg Fwd Diagnoses Partial small bowel obstruction K56.600 Recurrent incisional hernia K43.2
[2023-05-01 16:52] LABS: Glucose Point of Care 134 mg/dL (70-110)
[2023-05-01] MEDS: lactulose oral liq 20 gm/30 mL UDC 30 GM PO (17:39)
[2023-05-01] MEDS: amlodipine 5 mg Tablet 2.5 MG PO (17:39)
[2023-05-01 20:12] LABS: Glucose Point of Care 162 mg/dL (70-110)
[2023-05-01] MEDS: insulin lispro 100 unit/1 mL SUBCUT (20:30)
[2023-05-01] MEDS: enoxaparin 40 mg/0.4 mL Syringe SUBCUT (23:41)
[2023-05-01] MEDS: acetaminophen 325 mg Tablet 650 MG PO (23:50)
[2023-05-02] VITALS (12 sets, daily range): BP systolic 115–167; BP diastolic 55–78; PULSE 59–76; RESP 16–20; TEMP 36.4–37.2; O2SAT 94–97
[2023-05-02] MEDS: HYDROmorphone 1 mg/mL INJ 1 mL 0.5 MG IVP ×3 (03:56→21:26)
[2023-05-02] MEDS: hyDRALAzine 20 mg/mL INJ 1 mL 10 MG IVP (03:58)
[2023-05-02 04:26] LABS: Basophils % 0.3 %; Eosinophils # 0.1 10^3/uL (0.0-0.8); Eosinophils % 0.7 %; Hematocrit 50.3 % (37-53); Lymphocytes # 2.4 10^3/uL (0.8-4.8); Lymphocytes % 16.4 %; Mean Corpuscular Hemoglobin 31.9 pg (27-33); Mean Corpuscular Volume 96.5 fl (82-101); Mean Platelet Volume 9.9 fL (7.4-10.4); Monocytes # 1.8 10^3/uL (0.2-0.9); Monocytes % 12.3 %; Neutrophils # 10.08 10^3/uL (1.8-7.7); Neutrophils % 69.9 %; Nucleated Red Blood Cells % 0 %; Platelet Count 237 10^3/cmm (157-399); Red Blood Count 5.21 10^6/uL (3.85-5.65); Red Cell Distribution Width 13.3 % (12.1-15.1); White Blood Count 14.42 10^3/uL (3.29-11.43)
[2023-05-02 04:46] LABS: Alanine Aminotransferase 13 U/L (0-41); Albumin Level 3.9 g/dL (3.5-5.2); Alkaline Phosphatase 109 U/L (40-130); Anion Gap 16.3 (5-19); Aspartate Amino Transferase 10 U/L (0-40); Blood Urea Nitrogen 15 mg/dL (8-23); Calcium 9.2 mg/dL (8.5-10.5); Carbon Dioxide 25 mmol/L (22-29); Chloride 100 mmol/L (98-107); Globulin 3.7 g/dL (1.3-4.6); Glucose 118 mg/dL (65-115); Osmolality Calculated 288 mOsm/kg (285-295); Potassium 3.3 mmol/L (3.5-5.1); Sodium 138 mmol/L (136-145); Total Protein 7.6 g/dL (6.6-8.7)
[2023-05-02] MEDS: metoprolol succinate ER (24 HR) 25 mg Tablet PO (05:24)
[2023-05-02] MEDS: isosorbide mononitrate ER 30 mg Tablet PO (05:24)
[2023-05-02] MEDS: glimepiride 2 mg Tablet PO (05:24)
[2023-05-02] MEDS: lisinopril 20 mg Tablet 40 MG PO (05:24)
[2023-05-02] MEDS: famotidine 20 mg/2 mL INJ IVP ×2 (05:25→17:17)
[2023-05-02 06:27] LABS: Glucose Point of Care 106 mg/dL (70-110)
[2023-05-02] MEDS: atorvastatin 40 mg Tablet PO (08:16)
[2023-05-02] MEDS: ciprofloxacin 400 MG/200 ML PREMIX 200 MG IV (08:16)
--- NOTE | 2023-05-02 09:57 | XRR_ITS ---
PROCEDURE INFORMATION: Exam: XR Chest Exam date and time: 05/02/2023 10:13 AM Age: 82 years old Clinical indication: Dyspnea; Additional info: Unexplained leukocytosis TECHNIQUE: Imaging protocol: Radiologic exam of the chest. Views: 1 view. COMPARISON: CR (CHEST, ) 04/29/2023 9:36 PM FINDINGS: Lungs: No focal consolidation. Pleural spaces: Blunted bilateral costophrenic angles could reflect trace/small pleural effusions or atelectatic change. No pneumothorax. Heart/Mediastinum: Heart size accentuated by low lung volumes and technique. Bones/joints: No acute findings. XR/XR chest 1V portable [id number] IMPRESSION: No focal consolidation.
--- NOTE | 2023-05-02 10:04 | P.PN_ITS ---
Subjective 2 Subjective: Patient seen and examined. Denies any abdominal pain or nausea. He is passing flatus and having bowel movements. Tolerating diet Vitals/I&O/Wt Last Vital Signs Temp 97.6 F 05/02/23 08:50 Pulse 76 05/02/23 08:50 Resp 20 H 05/02/23 08:50 BP 132/67 05/02/23 08:50 Pulse Ox 94 05/02/23 08:50 O2 Del Method Room Air 05/02/23 08:50 05/01/23 05/02/23 05/02/23 22:59 06:59 14:59 Intake Total 1582027 240 / 2268 440 / 440 Balance 1582027 240 / 2268 440 / 440 Weight last 48 hrs Weight 236 lb 7 oz Weight 238 lb Physical Exam 2 Narrative: General : Patient is well developed , no acute distress, oriented x3 Head : Normal cephalic, a-traumatic. Ears : Pinnae and external canal are normal. Hearing is normal. Eyes : PERRLA, Sclera and injection are normal. No conjunctival discharge. Nose : Mucous membranes are without erythema. Throat : buccal mucosa is normal, gums are without significant recession or hypertrophy. Lungs : Equal chest rise bilaterally, no use of accessory muscles, trachea is midline. Cor : Rate and rhythm are normal. Abdomen : Soft, ND, NT, no g/r/m, there is an extremely large recurrent incisional hernia with complete loss of domain. No incarceration Extremities : No edema, no cyanosis or clubbing, dorsalis pedis pulses are present bilaterally, non-tender to palpation of calves. Upper extremities are normal bilaterally. Back : non-tender to palpation, no CVA tenderness. Neuro : CN II - XII intact, Upper and lower extremities have equal and full strength Data 05/02/23 03:51 05/02/23 03:51 Micro: Microbiology 04/29/23 15:42 Urine Culture - Preliminary Urine,Clean Catch A&P Assessment and plan (1) Partial small bowel obstruction: (2) Recurrent incisional hernia: Plan Regular diet No acute surgical management. Surgically stable for discharge I do not recommend surgical repair of this hernia as there is no risk of incarceration with a hernia the size and it will certainly recur and risk complication. If he desires hernia repair I will refer him to a tertiary care facility. Medical management per hospitalist Attestations 2 Medical Necessity Statement*: Per primary Coding Level of Care Code 45718 Diagnoses Partial small bowel obstruction K56.600 Recurrent incisional hernia K43.2
[2023-05-02] MEDS: potassium chloride ER 20 mEq Tablet 40 MEQ PO (10:55)
[2023-05-02] MEDS: cefTRIAXone 1,000 MG in sodium chloride 0.9% (plus) 50 ML 100 MG IV (10:56)
[2023-05-02 11:39] LABS: Glucose Point of Care 93 mg/dL (70-110)
[2023-05-02 11:46] LABS: Magnesium 2.2 mg/dL (1.7-2.3); Phosphorus 3.5 mg/dL (2.5-4.5)
--- NOTE | 2023-05-02 16:24 | P.PN_ITS ---
Subjective 2 Subjective: Patient's leukocytosis is worse despite the Ciprofloxacin. He says he feels good. He denies abdominal pain, stiff neck, fever, chills, dizziness, light headedness, palpitations, SOB, n/v, diarrhea, constipation, dysuria, increased urinary urgency/frequency. He cannot tell me about hematuria b/c he states that he has poor vision due to b/l macular degeneration. He has had a BM. Vitals/I&O/Wt Last Vital Signs Temp 98.6 F 05/02/23 16:00 Pulse 66 05/02/23 16:00 Resp 18 05/02/23 16:00 BP 115/62 05/02/23 16:00 Pulse Ox 95 05/02/23 16:00 O2 Del Method Room Air 05/02/23 16:00 05/02/23 05/02/23 05/02/23 06:59 14:59 22:59 Intake Total 240 / 2268 490 / 490 Balance 240 / 2268 490 / 490 Weight last 48 hrs Weight 107.246 kg Weight 107.955 kg Physical Exam 2 Const: COMMON NORMALS: patient oriented x3 GENERAL APPEARANCE: cooperative and well kempt; not comfortable NUTRITIONAL APPEARANCE: overweight O RIENTATION/CONSCIOUSNESS: Yes awake, Yes oriented to person, Yes oriented to place and Yes oriented to time HENMT: COMMON NORMALS: normocephalic, atraumatic, external ears normal and Normal external nose present HEAD & SCALP: normocephalic and atraumatic F TIFFANIE & SINUS: normal facial exam NOSE: Normal external nose present E XTERNAL EAR: Yes external ears normal MOUTH: Normal oral and palatal mucosa present THROAT: posterior oropharynx normal OTHER: NGT in place Eye: OTHER: Normal conjunctiva bilaterally, PERRL bilaterally, EOMI bilaterally. Neck/C-Spine: COMMON NORMALS: Thyroid normal GENERAL: Yes normal visual inspection and Yes trachea midline THYROID: Thyroid normal CAROTIDS: No bruit CERVICAL SPINE: Yes cervical ROM normal Lymph: OTHER: No cervical or supraclavicular lymphadenopathy. Resp: OTHER: CTAB anteriorly, with no wheezes rales or rhonchi. Cardio: OTHER: RRR, no murmurs, rubs, gallops, or clicks. No carotid bruits bilaterally. 2+ radial and 2+ dorsalis pedis pulses appreciated bilaterally. GI: OTHER: BS+, large right lower quadrant ventral abdominal hernia noted, nontender to palpation Extremity: GENERAL: No clubbing, No cyanosis and No deformity Neuro: COMMON NORMALS: patient oriented x3 and CN's II-XII intact bilaterally SENSORIUM/ORIENTATION: Yes oriented to person, Yes oriented to place and Yes oriented to time CRANIAL NERVES: Yes CN normal except as noted SPEECH: s peech normal SENSORY EXAM: No sensory level loss detected MOTOR EXAM: No 5/5 motor strength present throughout Psych: COMMON NORMALS: Normal thought process present and speech normal A PPEARANCE: Yes grossly normal and Yes well kempt ATTITUDE: Yes calm and Yes engaged ACTIVITY/MOTOR BEHAVIOR: Yes appropriate eye contact SPEECH: Yes normal speech MOOD & AFFECT: Yes euthymic mood THOUGHT PROCESS: Normal thought process present THOUGHT CONTENT: Yes Normal thought content present ATTENTION/CONCENTRATION: Yes attention grossly intact MEMORY/COGNITION: Yes memory grossly intact Skin: COMMON NORMALS: no rashes or lesions noted GENERAL SKIN EXAM: no rashes or lesions noted Data 05/03/23 02:18 05/03/23 02:18 Micro: Microbiology 04/29/23 15:42 Urine Culture - Final Urine,Clean Catch A&P Assessment and plan (1) HTN (hypertension): Qualifiers: Hypertension type: essential hypertension Qualified Code(s): I10 - Essential (primary) hypertension (2) Diabetes: Qualifiers: Diabetes mellitus complication detail: with periodontal disease D iabetes mellitus complication status: with oral complications Diabetes mellitus half-way insulin use: without buttermaker continuous churn use Diabetes mellitus type: type 2 Qualified Code(s): 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 (3) Macular degeneration: Qualifiers: Eye laterality: bilateral Nonexudative macular degeneration stage: u nspecified stage (4) Partial small bowel obstruction: (5) Ventral hernia with bowel obstruction: (6) Rheumatoid arthritis: Qualifiers: Rheumatoid arthritis location: unspecified site Rheumatoid factor presence: with rheumatoid factor Qualified Code(s): M05.9 - Rheumatoid arthritis with rheumatoid factor, unspecified Plan Jens Poe is a 82 yo w/ b/l macular degeneration, Rheumatoid Arthritis, a large RLQ abdominal hernia, who presented to the ED on 04/29/2022 w/ complaints of RLQ abdominal pain at the site of this RLQ abdominal hernia. The patient states that the RLQ abdominal hernia developed in a R. partial colectomy secondary to what sounds like a volvulus, my colon twisted around itself in 1991. Attempts at a repair with mesh has been unsuccessful. In the ED, he was hypertensive to 197/94mmHg. His labs showed a leukocytosis of 13.4 and a lactic acid of 1.2. A CT abdomen/pelvis was done that showed a large R. Sided ventral abdominal hernia w/ findings suggestive of a low-grade partial SBO. Surgical evaluation was recommended. The general surgeon on-call was consulted, who recommended an NG tube placement. The NG tube was placed, the patient was admitted. #Leukocytosis: Worsening. Unclear source. Likely UTI. CXR negative. D/c Cipro and start Ceftriaxone. #Partial SBO: - Consult Gen Surg. Per discussion w/ the Gen Surgeon, start clear liquid diet. He will see the patient in the AM. - d5 03/10 NS at 75cc/hr - d/c on 05/01. - Monitor electrolytes. Strict Is & Os. - Dilaudid every 4 as needed for pain #Large R. sided ventral abdominal hernia - Mgmt per surgery. OK for discharge from Gen Surgery stand point #Leukocytosis: Unclear cause. UA concerning for UTI. Started Cipro empirically. #non-IDDM2 - low dose SSI for days and nights ordered. NPO for now #HTN: Resume home meds. #HLD: Resume home meds #CAD: diagnosed on 11/13/2021 nuclear medicine stress test. Resume home meds #Rheumatoid Arthritis: He manages it with Tylenol. 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 He states that sulfa drugs made his urine red. #Insomnia: Lorazepam 1mg IVP x 1. DVT ppx: Lovenox Attestations 2 Medical Necessity Statement*: Patient needs to remain hospitalized for evaluation of unclear reason for his leukocytosis. 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, without long-term current use of insulin E11.630 Diabetes mellitus complication detail: with periodontal disease Diabetes mellitus complication status: with oral complications Diabetes mellitus half-way insulin use: without buttermaker continuous churn use Diabetes mellitus type: type 2 Macular degeneration H35.30 Eye laterality: bilateral Nonexudative macular degeneration stage: unspecified stage Partial small bowel obstruction K56.600 Ventral hernia with bowel obstruction K43.6 Rheumatoid arthritis with positive rheumatoid factor, involving unspecified site M05.9 Rheumatoid arthritis location: unspecified site Rheumatoid factor presence: with rheumatoid factor
[2023-05-02 16:42] LABS: Glucose Point of Care 101 mg/dL (70-110)
[2023-05-02] MEDS: amlodipine 5 mg Tablet 2.5 MG PO (16:59)
[2023-05-02] MEDS: acetaminophen 325 mg Tablet 650 MG PO (19:38)
[2023-05-02] MEDS: enoxaparin 40 mg/0.4 mL Syringe SUBCUT (22:10)
[2023-05-02] MEDS: temazepam 15 mg Capsule PO (22:10)
[2023-05-02 22:38] LABS: Glucose Point of Care 101 mg/dL (70-110)
[2023-05-02 23:47] LABS: Glucose Point of Care 113 mg/dL (70-110)
[2023-05-03 02:58] LABS: Basophils % 0.4 %; Eosinophils # 0.3 10^3/uL (0.0-0.8); Eosinophils % 2.8 %; Hematocrit 42.4 % (37-53); Lymphocytes # 2.1 10^3/uL (0.8-4.8); Lymphocytes % 21.7 %; Mean Corpuscular HGB Conc 33.5 g/dL (30-55); Mean Corpuscular Hemoglobin 31.5 pg (27-33); Monocytes # 1.3 10^3/uL (0.2-0.9); Monocytes % 12.7 %; Neutrophils # 6.07 10^3/uL (1.8-7.7); Neutrophils % 61.8 %; Nucleated Red Blood Cells % 0 %; Platelet Count 195 10^3/cmm (157-399); Red Blood Count 4.51 10^6/uL (3.85-5.65); Red Cell Distribution Width 13.2 % (12.1-15.1); White Blood Count 9.83 10^3/uL (3.29-11.43)
[2023-05-03 03:21] LABS: Alanine Aminotransferase 12 U/L (0-41); Albumin Level 3.1 g/dL (3.5-5.2); Alkaline Phosphatase 82 U/L (40-130); Anion Gap 10.3 (5-19); Aspartate Amino Transferase 12 U/L (0-40); Blood Urea Nitrogen 23 mg/dL (8-23); Calcium 8.6 mg/dL (8.5-10.5); Carbon Dioxide 22 mmol/L (22-29); Chloride 102 mmol/L (98-107); Globulin 2.8 g/dL (1.3-4.6); Glucose 104 mg/dL (65-115); Osmolality Calculated 276 mOsm/kg (285-295); Phosphorus 2.7 mg/dL (2.5-4.5); Potassium 3.3 mmol/L (3.5-5.1); Sodium 131 mmol/L (136-145); Total Bilirubin 0.6 mg/dL (0.15-1.2); Total Protein 5.9 g/dL (6.6-8.7)
[2023-05-03 04:10] VITALS: BP 152/81; PULSE 58; RESP 16; TEMP 36.6; O2SAT 94
[2023-05-03] MEDS: glimepiride 2 mg Tablet PO (05:10)
[2023-05-03] MEDS: lisinopril 20 mg Tablet 40 MG PO (05:10)
[2023-05-03] MEDS: metoprolol succinate ER (24 HR) 25 mg Tablet PO (05:10)
[2023-05-03] MEDS: isosorbide mononitrate ER 30 mg Tablet PO (05:10)
[2023-05-03] MEDS: acetaminophen 325 mg Tablet 650 MG PO (05:14)
[2023-05-03] MEDS: famotidine 20 mg/2 mL INJ IVP (05:57)
[2023-05-03 06:54] LABS: Glucose Point of Care 96 mg/dL (70-110)
[2023-05-03 08:00] VITALS: BP 124/66; PULSE 65; RESP 18; TEMP 36.6; O2SAT 96
[2023-05-03] MEDS: atorvastatin 40 mg Tablet PO (08:19)
[2023-05-03] MEDS: cefTRIAXone 1,000 MG in sodium chloride 0.9% (plus) 50 ML 100 MG IV (08:19)
--- NOTE | 2023-05-03 09:40 | P.DS_ITS ---
Discharge Providers Date of Admission: 04/29/23 18:11 Date of Discharge: May 03, 2023 Attending Provider at Admission: Kat Ko MD Attending Provider at Discharge: Kat Ko MD Primary Care Provider: Curtis Adair MD Diagnoses at Discharge Discharge Diagnosis (1) HTN (hypertension): Status: Inactive Qualifiers: Hypertension type: essential hypertension Qualified Code(s): I10 - Essential (primary) hypertension (2) Diabetes: Status: Inactive Qualifiers: Diabetes mellitus complication detail: with periodontal disease Diabetes mellitus complication status: with oral complications Diabetes mellitus group home insulin use: without group home use Diabetes mellitus type: type 2 Qualified Code(s): 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 (3) Macular degeneration: Status: Inactive Qualifiers: Eye laterality: bilateral Nonexudative macular degeneration stage: unspecified stage (4) Partial small bowel obstruction: Status: Inactive (5) Ventral hernia with bowel obstruction: Status: Inactive (6) Rheumatoid arthritis: Status: Inactive Qualifiers: Rheumatoid arthritis location: unspecified site Rheumatoid factor presence: with rheumatoid factor Qualified Code(s): M05.9 - Rheumatoid arthritis with rheumatoid factor, unspecified Reason for Visit Reason for Visit: abd pain Hospital Course Hospital Course Jens Poe is a 82 yo w/ b/l macular degeneration, Rheumatoid Arthritis, a large RLQ abdominal hernia, who presented to the ED on 04/29/2022 w/ complaints of RLQ abdominal pain at the site of this RLQ abdominal hernia. The patient states that the RLQ abdominal hernia developed in a R. partial colectomy secondary to what sounds like a volvulus, my colon twisted around itself in 1991. Attempts at a repair with mesh has been unsuccessful. In the ED, he was hypertensive to 197/94mmHg. His labs showed a leukocytosis of 13.4 and a lactic acid of 1.2. A CT abdomen/pelvis was done that showed a large R. Sided ventral abdominal hernia w/ findings suggestive of a low-grade partial SBO. Surgical evaluation was recommended. The general surgeon on-call was consulted, who recommended an NG tube placement. The NG tube was placed, the patient was admitted. The patient had a BM the next day and denied abdominal pain, so he was transitioned to a clear liquid diet. His diet was advanced and the NGT was discontinued. His UA was concerning for UTI, so he was initially started on empiric ciprofloxacin. His UCx grew mixed urogenital logan; however, his leukocytosis continued to worsen. His CXR was negative, so empiric ciprofloxacin was discontinued, and he was started on Ceftriaxone. His leuko cytosis improved, so he was d/c'ed home w/ 5 days of cefuroxime. #Partial SBO: #Large R. sided ventral abdominal hernia #non-IDDM2 #HTN #HLD #CAD: diagnosed on 11/13/2021 nuclear medicine stress test. #Rheumatoid Arthritis: He manages it with Tylenol. 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 He states that sulfa drugs made his urine red. Physical Exam Const: COMMON NORMALS: patient oriented x3 GENERAL APPEARANCE: cooperative and well kempt; not comfortable NUTRITIONAL APPEARANCE: overweight ORIENTATION/CONSCIOUSNESS: Yes awake, Yes oriented to person, Yes oriented to place and Yes oriented to time HENMT: COMMON NORMALS: normocephalic, atraumatic, external ears normal and Normal external nose present HEAD & SCALP: normocephalic and atraumatic FACE & SINUS: normal facial exam NOSE: Normal external nose present EXTERNAL EAR: Yes external ears normal MOUTH: Normal oral and palatal mucosa present THROAT: posterior oropharynx normal OTHER: NGT in place Eye: OTHER: Normal conjunctiva bilaterally, PERRL bilaterally, EOMI bilaterally. Neck/C-Spine: COMMON NORMALS: Thyroid normal GENERAL: Yes normal visual inspection and Yes trachea midline THYROID: Thyroid normal CAROTIDS: No bruit CERVICAL SPINE: Yes cervical ROM normal Lymph: OTHER: No cervical or supraclavicular lymphadenopathy. Resp: OTHER: CTAB anteriorly, with no wheezes rales or rhonchi. Cardio: OTHER: RRR, no murmurs, rubs, gallops, or clicks. No carotid bruits bilaterally. 2+ radial and 2+ dorsalis pedis pulses appreciated bilaterally. GI: OTHER: BS+, large right lower quadrant ventral abdominal hernia noted, nontender to palpation Extremity: GENERAL: No clubbing, No cyanosis and No deformity Neuro: COMMON NORMALS: patient oriented x3 and CN's II-XII intact bilaterally SENSORIUM/ORIENTATION: Yes oriented to person, Yes oriented to place and Yes oriented to time CRANIAL NERVES: Yes CN normal except as noted SPEECH: speech normal SENSORY EXAM: No sensory level loss detected MOTOR EXAM: No 5/5 motor strength present throughout Psych: COMMON NORMALS: Normal thought process present and speech normal APPEARANCE: Yes grossly normal and Yes well kempt ATTITUDE: Yes calm and Yes engaged ACTIVITY/MOTOR BEHAVIOR: Yes appropriate eye contact SPEECH: Yes normal speech MOOD & AFFECT: Yes euthymic mood THOUGHT PROCESS: Normal thought process present THOUGHT CONTENT: Yes Normal thought content present ATTENTION/CONCENTRATION: Yes attention grossly intact MEMORY/COGNITION: Yes memory grossly intact Skin: COMMON NORMALS: no rashes or lesions noted GENERAL SKIN EXAM: no rashes or lesions noted Discharge Data Studies Completed and Pending Completed Studies During Hospitalization Category Date Time Status CT abdomen pelvis w con* [id number] Stat Cat Scan 04/29/23 14:10 Completed CXRP [XR chest 1V portable [id number]] Routine Exams 05/02/23 09:57 Completed XR KUB [id number] Stat Exams 04/29/23 16:23 Completed XR chest 1V portable [id number] Stat Exams 04/29/23 20:21 Completed Pending at discharge Category Date Time Status CBC Auto Diff [Complete Blood Count w/Auto] AM LABS Lab 05/04/23 04:00 Ordered CBC Auto Diff [Complete Blood Count w/Auto] AM LABS Lab 05/05/23 04:00 Ordered CMP [Comprehensive Metabolic Panel] AM LABS Lab 05/04/23 04:00 Ordered CMP [Comprehensive Metabolic Panel] AM LABS Lab 05/05/23 04:00 Ordered Radiology Impressions Abdomen/Pelvis CT 04/29/23 14:10 IMPRESSION: 1. Large right-sided ventral abdominal hernia with findings suggestive of low-grade partial small bowel obstruction. Surgical evaluation is recommended. KUB X-Ray 04/29/23 16:23 IMPRESSION: 1. Enteric tube in place with tip in the region of the gastric body and side hole just above the GE junction. Recommend advancing approximately 3 cm and repeating the radiograph. Chest X-Ray 05/02/23 09:57 IMPRESSION: No focal consolidation. Laboratory Results WBC 9.83 10^3/uL (3.29-11.43) 05/03/23 02:18 RBC 4.51 10^6/uL (3.85-5.65) 05/03/23 02:18 Hgb 14.20 g/dL (11.27-16.99) 05/03/23 02:18 Hct 42.4 % (37-53) 05/03/23 02:18 MCV 94.0 fl (82-101) 05/03/23 02:18 MCH 31.5 pg (27-33) 05/03/23 02:18 MCHC 33.5 g/dL (30-55) 05/03/23 02:18 RDW 13.2 % (12.1-15.1) 05/03/23 02:18 Plt Count 195 10^3/cmm (157-399) 05/03/23 02:18 MPV 10.0 fL (7.4-10.4) 05/03/23 02:18 Neut % (Auto) 61.8 % 05/03/23 02:18 Lymph % (Auto) 21.7 % 05/03/23 02:18 [place] % (Auto) 12.7 % 05/03/23 02:18 Eos % (Auto) 2.8 % 05/03/23 02:18 Baso % (Auto) 0.4 % 05/03/23 02:18 Neut # (Auto) 6.07 10^3/uL (1.8-7.7) 05/03/23 02:18 Lymph # (Auto) 2.1 10^3/uL (0.8-4.8) 05/03/23 02:18 [place] # (Auto) 1.3 10^3/uL (0.2-0.9) H 05/03/23 02:18 Eos # (Auto) 0.3 10^3/uL (0.0-0.8) 05/03/23 02:18 Baso # (Auto) 0.0 10^3/uL (0.0-0.1) 05/03/23 02:18 Nucleated RBC % (auto) 0 % 05/03/23 02:18 Nucleated RBCs # 0.0 /100WBC 05/03/23 02:18 Sodium 131 mmol/L (136-145) L 05/03/23 02:18 Potassium 3.3 mmol/L (3.5-5.1) L 05/03/23 02:18 Chloride 102 mmol/L (98-107) 05/03/23 02:18 Carbon Dioxide 22 mmol/L (22-29) 05/03/23 02:18 Anion Gap 10.3 (5-19) 05/03/23 02:18 BUN 23 mg/dL (8-23) 05/03/23 02:18 Creatinine 1.0 mg/dL (0.7-1.2) 05/03/23 02:18 GFR Calculation Not Reportable 05/03/23 02:18 Glucose 104 mg/dL (65-115) 05/03/23 02:18 POC Glucose 96 mg/dL (70-110) 05/03/23 06:40 Estimat Average Glucose 148 04/30/23 04:33 Hemoglobin A1c 6.8 % (4.0-6.0) H 04/30/23 04:33 Calculated Osmolality 276 mOsm/kg (285-295) L 05/03/23 02:18 Lactic Acid 1.2 mmol/L (0.5-2.2) 04/29/23 14:17 Calcium 8.6 mg/dL (8.5-10.5) 05/03/23 02:18 Phosphorus 2.7 mg/dL (2.5-4.5) 05/03/23 02:18 Magnesium 2.0 mg/dL (1.7-2.3) 05/03/23 02:18 Total Bilirubin 0.6 mg/dL (0.15-1.2) 05/03/23 02:18 AST 12 U/L (0-40) 05/03/23 02:18 ALT 12 U/L (0-41) 05/03/23 02:18 Alkaline Phosphatase 82 U/L (40-130) 05/03/23 02:18 Total Protein 5.9 g/dL (6.6-8.7) L D 05/03/23 02:18 Albumin 3.1 g/dL (3.5-5.2) L 05/03/23 02:18 Globulin 2.8 g/dL (1.3-4.6) 05/03/23 02:18 Urine Color Yellow (Yellow) 04/29/23 15:42 Urine Appearance Clear (CLEAR) 04/29/23 15:42 Urine pH 5 (5-7) 04/29/23 15:42 Ur Specific [place] 1.015 (1.005-1.030) 04/29/23 15:42 Urine Protein Neg (Negative) 04/29/23 15:42 Urine Glucose (UA) 4+ (Normal) H 04/29/23 15:42 Urine Ketones 1+ (Negative) H 04/29/23 15:42 Urine Blood Neg (Negative) 04/29/23 15:42 Urine Nitrate Negative (Negative) 04/29/23 15:42 Urine Bilirubin Neg (Negative) 04/29/23 15:42 Urine Urobilinogen Neg mg/dL (Negative) 04/29/23 15:42 Ur Leukocyte Esterase 2+ (Negative) H 04/29/23 15:42 Urine RBC Rare /hpf (0-2) 04/29/23 15:42 Urine WBC 15-25 /hpf (0-5) H 04/29/23 15:42 Ur Squamous Epith Cells 0-4 /hpf (0-5) H 04/29/23 15:42 Amorphous Sediment Not Reportable 04/29/23 15:42 Urine Bacteria Trace /hpf (NONE) 04/29/23 15:42 Vitals Last Vital Signs Temp 97.8 F 05/03/23 08:00 Pulse 65 05/03/23 08:00 Resp 18 05/03/23 08:00 BP 124/66 05/03/23 08:00 Pulse Ox 96 05/03/23 08:00 O2 Del Method Room Air 05/03/23 08:00 Discharge Plan Discharge Patient Disposition: Home Condition: Stable Prescriptions: New cefuroxime axetil 250 mg Tablet 500 mg PO BID 5 Days Qty: 20 0RF Continued (DME) walker with large wheels and seat See Rx Instructions .Route .MEDSUPPLY Qty: 1 0RF Rx Instructions: As directed Laxative (sennosides) 15 mg tablet 15 mg PO DAILY PRN (Reason: Constipation) (DME) blood-glucose meter Kit See Rx Instructions .ROUTE .MEDSUPPLY Qty: 1 0RF Rx Instructions: testing daily (DME) lancets Misc See Rx Instructions .Route Qty: 100 0RF Rx Instructions: daily nitroglycerin 0.4 mg tablet, sublingual 0.4 mg sublingual Q5M PRN (Reason: Chest Pain) Qty: 20 2RF atorvastatin 40 mg tablet 40 mg PO DAILY Qty: 30 3RF (DME) Blood Glucose Test Strip See Rx Instructions .ROUTE .MEDSUPPLY Qty: 50 3RF Rx Instructions: testing daily isosorbide mononitrate 30 mg tablet extended release 24 hr 30 mg PO QAM glimepiride 2 mg tablet 2 mg PO QAM Rx Instructions: AT 7AM metoprolol succinate 25 mg tablet extended release 24 hr 25 mg PO QAM Jardiance 25 mg tablet 25 mg PO QAM amlodipine 5 mg tablet 2.5 mg PO QPM lisinopril 40 mg tablet 40 mg PO QAM Discharge Orders: Discharge Order (Routine); Ordered 05/03/23 Ordered By: Kat Ko Referrals: Curtis Adair MD [Primary Care Provider] - (We have notified your physician's clinic of the need for a follow-up appointment to be scheduled. If you have not heard from them within the next 2 business days, please call them directly. 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, without long-term current use of insulin E11.630 Diabetes mellitus complication detail: with periodontal disease Diabetes mellitus complication status: with oral complications Diabetes mellitus group home insulin use: without commercial field inspector use Diabetes mellitus type: type 2 Macular degeneration H35.30 Eye laterality: bilateral Nonexudative macular degeneration stage: unspecified stage Partial small bowel obstruction K56.600 Ventral hernia with bowel obstruction K43.6 Rheumatoid arthritis with positive rheumatoid factor, involving unspecified site M05.9 Rheumatoid arthritis location: unspecified site Rheumatoid factor presence: with rheumatoid factor
[2023-05-03] MEDS: potassium chloride ER 20 mEq Tablet 40 MEQ PO (10:00)
--- NOTE | 2023-05-03 10:23 | PC.NURSE ---
Discharge pending hold for attending per Dr. Ko. Pt already received Ceftriaxone.
== END 2023-05-03 11:18 | disposition home or self-care (01) | DRG 394 ==
LOC: ER 15:53 → MEDSURG 18:12
PROVIDERS: Admitting Provider Internal Medicine; Emergency Provider Emergency Medicine; PCP Family Medicine Adult Medicine; Visit Provider Internal Medicine
DX: K43.0 Incisional hernia with obstruction, without gangrene (principal); K56.690 Other partial intestinal obstruction; H35.30 Unspecified macular degeneration; M05.9 Rheumatoid arthritis with rheumatoid factor, unspecified; I10 Essential (primary) hypertension; E11.630 Type 2 diabetes mellitus with periodontal disease; E78.5 Hyperlipidemia, unspecified; I25.10 Atherosclerotic heart disease of native coronary artery without angina pectoris; G47.00 Insomnia, unspecified; D72.829 Elevated white blood cell count, unspecified; Z79.84 Long term (current) use of oral hypoglycemic drugs; Z90.49 Acquired absence of other specified parts of digestive tract
CPT/HCPCS: 36415; 36416; 71045; 74018; 74177; 80053; 81001; 82962; 83036; 83605; 83735; 84100; 85025; 87086; 96365; 96366; 96372; 96375; 97161; 97165; 97530; 99285; J0360; J0696; J0744; J1170; J1650; J1815; J2060; J2270; J2405; J3480; J3490; J7799; Q9967

== ENCOUNTER → 2023-06-18 14:20 | Outpatient (BNVA) | payer MEDICARE, MEDICAID, SELFPAY | PROVIDERS: PCP Family Medicine Adult Medicine; Visit Provider Nurse Practitioner Family | DX: D17.1 Benign lipomatous neoplasm of skin and subcutaneous tissue of trunk (principal); L82.1 Other seborrheic keratosis; D18.01 Hemangioma of skin and subcutaneous tissue; L57.0 Actinic keratosis; Z85.828 Personal history of other malignant neoplasm of skin | CPT/HCPCS: 17000; 99213 ==

== ENCOUNTER → 2023-09-01 13:38 | Outpatient (BNVA) | payer MEDICARE, MEDICAID, SELFPAY | PROVIDERS: PCP Family Medicine Adult Medicine; Visit Provider Podiatrist Foot & Ankle Surgery | DX: L60.3 Nail dystrophy (principal); E11.630 Type 2 diabetes mellitus with periodontal disease; G62.9 Polyneuropathy, unspecified | CPT/HCPCS: 11721; 99203 ==

== ENCOUNTER 2023-09-29 18:10 | Emergency (ER) | payer MEDICARE, MEDICAID, SELFPAY ==
[2023-09-29 18:26] VITALS: BP 162/77; PULSE 61; RESP 18; TEMP 36.7; O2SAT 96
[2023-09-29] MEDS: tetracaine 0.5% Op Soln 4 mL Btl 1 DROP EYE-BOTH (19:37)
[2023-09-29] MEDS: brimonidine 0.2% Op Soln 5 mL Btl 1 DROP EYE-RIGHT (19:51)
[2023-09-29] MEDS: dorzolamide/timolol Op Soln 10 mL Btl 1 DROP EYE-RIGHT (19:51)
[2023-09-29] MEDS: acetaZOLAMIDE 250 mg Tablet PO (19:51)
--- NOTE | 2023-09-29 20:07 | PC.NURSE ---
Eye drops applied to right eye per instruction of Dr Charles.
--- NOTE | 2023-09-29 20:12 | W.ED.EYEPROB ---
HPI - Eye Problem General: Chief complaint: Eye Problems Stated complaint: Eye pain Time Seen by Provider: 09/29/23 19:21 Source: patient Mode of arrival: ambulatory Limitations: no limitations History of Present Illness: 83-year-old male states he had had a lens replacement done [address] Steven he states that he has poor vision in his right eye normally due to diabetic retinopathy is states he has not been seen very well since that lens replacement states that this evening he started having increased eye pain. States that pain has been sharp that eye and rates it a 6 out of 10 denies any fever or drainage Associated symptoms: Denies fever(s), headache(s), nausea, neck pain or vomiting Review of Systems Const: Denies: fever(s), chills, body aches or change in appetite Eyes: Reports: eye discomfort ENMT: Denies: throat pain or dental pain Card: Denies: chest pain Resp: Denies: dyspnea GI: Denies: abdominal pain, nausea, vomiting or diarrhea Musc: Denies: neck pain or back pain Skin/Breast: Denies: rash Neuro: Denies: headache(s) PFSH ED PFSH: Medical History Enlarged and hypertrophic nails Fungal toenail infection Diabetes Rheumatoid arthritis HTN (hypertension) Recurrent incisional hernia Ventral hernia with bowel obstruction Partial small bowel obstruction Dental caries Lipoma of back Osteoarthritis History of nonmelanoma skin cancer Macular degeneration Left ventricular hypertrophy Surgical History S/P colon resection Family History Father Myocardial infarction Grandfather Myocardial infarction Grandmother Cancer Social History Smoking and tobacco/nicotine status: tobacco/nicotine user, details unknown Second hand smoke exposure: No Substance/Drug Use: never Lives independently: Yes Household members: none Marital status: Current occupational status: retired Current gender identity: Male Special mine needs: No Physical Exam Const: COMMON NORMALS: no acute distress, patient oriented x3 and healthy appearing HENMT: COMMON NORMALS: normocephalic and atraumatic HEAD & SCALP: normocephalic and atraumatic Eye: COMMON NORMALS: EOMs intact bilaterally OTHER: Colitis to right eye pupil minimally responsive Neck/C-Spine: COMMON NORMALS: full ROM and supple Chest: COMMONS NORMALS: normal inspection of the chest Resp: COMMON NORMALS: normal respiratory effort Cardio: COMMON NORMALS: regular rate, regular rhythm and No murmurs present (Cardio) RATE: regular rate RHYTHM: regular rhythm Extremity: COMMON NORMALS: normal to inspection and full ROM Neuro: COMMON NORMALS: patient oriented x3, moves all extremities and no focal motor deficits Psych: COMMON NORMALS: mental status grossly normal, Normal thought process present and cooperative THOUGHT PROCESS: Normal thought process present Skin: COMMON NORMALS: no rashes or lesions noted and no wounds GENERAL SKIN EXAM: no rashes or lesions noted Course Vital Signs: Vital signs: Vital Signs Temperature 98.0 F 09/29/23 18:26 Pulse Rate 61 09/29/23 18:26 Respiratory Rate 18 09/29/23 18:26 Blood Pressure 162/77 09/29/23 18:26 Pulse Oximetry 96 09/29/23 18:26 Oxygen Delivery Me thod Room Air 09/29/23 18:26 MDM - Eye Problem Medical Decision Making Patient presents with right eye pain his intraocular pressure that I is 45 mmHg 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 Steven recommended 2 separate eyedrops I did give him here every 5 minutes x 3 he is to use them 1 time again tonight and in the morning I did give him acetazolamide. And patient is to go to Dr. Steven office first thing in the morning patient understands this I did inform him if he worsens he is to return he understands agrees the plan Medical Records I reviewed the patient's medical records. No radiology studies performed this visit Discharge Plan Discharge Patient Disposition: Home Clinical Impression: Acute right eye pain Condition: Stable Prescriptions: No Action (DME) walker with large wheels and seat See Rx Instructions .Route .MEDSUPPLY Qty: 1 0RF Rx Instructions: As directed Laxative (sennosides) 15 mg tablet 15 mg PO DAILY PRN (Reason: Constipation) naftifine [Naftin] 2 % gel 1 applic topical DAILY 28 Days Qty: 60 0RF (DME) blood-glucose meter Kit See Rx Instructions .ROUTE .MEDSUPPLY Qty: 1 0RF Rx Instructions: testing daily (DME) lancets Misc See Rx Instructions .Route Qty: 100 0RF Rx Instructions: daily nitroglycerin 0.4 mg tablet, sublingual 0.4 mg sublingual Q5M PRN (Reason: Chest Pain) Qty: 20 2RF (DME) Blood Glucose Test Strip See Rx Instructions .ROUTE .MEDSUPPLY Qty: 50 3RF Rx Instructions: testing daily Jardiance 25 mg tablet 25 mg PO QAM Qty: 90 1RF atorvastatin 40 mg tablet 40 mg PO DAILY Qty: 30 3RF lisinopril 40 mg tablet 40 mg PO QAM Qty: 30 3RF amlodipine 5 mg tablet 2.5 mg PO QPM Qty: 30 3RF isosorbide mononitrate 30 mg tablet extended release 24 hr 30 mg PO QAM Qty: 90 1RF metoprolol succinate 25 mg tablet extended release 24 hr 25 mg PO QAM Qty: 90 1RF glimepiride 2 mg tablet 2 mg PO QAM Rx Instructions: AT 7AM Discharge Orders: Discharge ED (Routine); Ordered 09/29/23 Ordered By: Elsie Charles Referrals: Curtis Adair MD [Primary Care Provider] - Mumtaz Steven [Physician] - 4-7 days Discharge Diet: Advance as tolerated Discharge Activity: Resume usual activity Patient Instructions: Eye Pain (ED) Coding Level of Care Code ED [employer] for Jose D Thompson
[2023-09-29 20:27] VITALS: BP 172/82; PULSE 58; O2SAT 96
== END 2023-09-29 20:22 | disposition home or self-care (01) ==
PROVIDERS: Emergency Provider Emergency Medicine; PCP Family Medicine Adult Medicine
DX: H57.11 Ocular pain, right eye (principal); Z79.84 Long term (current) use of oral hypoglycemic drugs; Z72.0 Tobacco use; I10 Essential (primary) hypertension; E11.319 Type 2 diabetes mellitus with unspecified diabetic retinopathy without macular edema; H35.30 Unspecified macular degeneration
CPT/HCPCS: 99283

== ENCOUNTER → 2023-10-08 12:44 | Outpatient (BNVA) | payer MEDICARE, MEDICAID, SELFPAY | PROVIDERS: PCP Family Medicine Adult Medicine; Visit Provider Nurse Practitioner Family | DX: L57.0 Actinic keratosis (principal); L82.0 Inflamed seborrheic keratosis; L57.8 Other skin changes due to chronic exposure to nonionizing radiation; L81.4 Other melanin hyperpigmentation; D17.1 Benign lipomatous neoplasm of skin and subcutaneous tissue of trunk; D18.01 Hemangioma of skin and subcutaneous tissue; Z85.828 Personal history of other malignant neoplasm of skin | CPT/HCPCS: 17004; 17110; 99213 ==

== ENCOUNTER → 2024-01-14 12:40 | Outpatient (BNVA) | payer MEDICARE, MEDICAID, SELFPAY | PROVIDERS: PCP Family Medicine Adult Medicine; Visit Provider Nurse Practitioner Family | DX: L82.1 Other seborrheic keratosis (principal); D18.01 Hemangioma of skin and subcutaneous tissue; L57.8 Other skin changes due to chronic exposure to nonionizing radiation; L81.4 Other melanin hyperpigmentation; D17.1 Benign lipomatous neoplasm of skin and subcutaneous tissue of trunk; L57.0 Actinic keratosis; Z85.828 Personal history of other malignant neoplasm of skin | CPT/HCPCS: 17004; 99213 ==

== ENCOUNTER → 2024-02-23 13:28 | Outpatient (BNVA) | payer MEDICARE, MEDICAID, SELFPAY | PROVIDERS: PCP Family Medicine Adult Medicine; Visit Provider Podiatrist Foot & Ankle Surgery | DX: L60.3 Nail dystrophy (principal); E11.630 Type 2 diabetes mellitus with periodontal disease; G63 Polyneuropathy in diseases classified elsewhere | CPT/HCPCS: 11721 ==

== ENCOUNTER 2024-03-28 12:09 | Inpatient (IN) | payer MEDICARE, MEDICAID, SELFPAY ==
[2024-03-28] VITALS (9 sets, daily range): BP systolic 159–187; BP diastolic 84–99; PULSE 55–65; RESP 15–18; TEMP 36.3–37.1; O2SAT 93–96; BMI 32.1; BMI 32.3
--- NOTE | 2024-03-28 12:20 | CT_ITS ---
WS: [id number] CT ABDOMEN AND PELVIS WITH CONTRAST HISTORY: R sided abdominal pain TECHNIQUE: Imaging performed of the abdomen and pelvis with IV contrast. Single phase imaging of the abdomen. Coronal and sagittal reformats are submitted. All CT scans at [facility] use at [address] one of these dose optimization techniques: automated exposure control; mA and/or kV adjustment per patient size (includes targeted exams where dose is matched to clinical indication); or iterative re construction. IV CONTRAST: Omnipaque 350; 100 mL IV. Oral contrast: No DLP: 1041.73 mGy.cm COMPARISON: 04/29/2023 Lower thorax: Lung bases are clear. Heart is normal size. No hiatal hernia. Liver/biliary system: Normal size with no intrahepatic dilatation. Gallbladder: Cholelithiasis without acute cholecystitis. Pancreas: Normal size pancreas and pancreatic duct. No adjacent inflammation. Spleen: Normal size spleen. No mass or infarct. Adrenal glands: Normal. Right kidney: Cortical scarring and thinning in the lower pole. No renal obstruction. Left kidney: Cortical scarring in the mid to lower kidney. No obstruction. Aorta: Normal. Lymphadenopathy: None. Free fluid: None. GI tract: Stomach is moderately well distended with fluid and air. Distal small bowel is distended wi th fluid. Distal small bowel loops which extend into the large RIGHT abdominal wall hernia sac are di lated to 4 cm. Within the hernia sac there are both dilated and nondilated small bowel loops. Ascendi ng colon is also in the RIGHT abdominal wall hernia. Colon is not dilated. Appendix is not definitely identified. Abdominal wall: Large RIGHT ventral abdominal wall hernia containing colon and mesentery. There is an additional supraumbilical hernia also containing transverse colon. Pelvis: No free fluid or adenopathy within the pelvis. Bones: No destructive bone lesions. CT/CT abdomen pelvis w con* [id number] IMPRESSION: 1. Moderate distal small bowel obstruction. There is a large RIGHT abdominal w all hernia sac which contains dilated and nondilated small bowel and proximal n ondilated colon. No free air. No ischemia at this time. Recommend surgical cons ultation. 2. Cholelithiasis without acute cholecystitis. 3. Supraumbilical abdominal wall hernia contains transverse colon with no obst ruction.
--- NOTE | 2024-03-28 12:20 | ED_ITS ---
HPI - Abdominal Pain 2 General: Chief Complaint: Abdominal Pain Stated Complaint: URQ Pain Time Seen by Provider: 03/28/24 12:11 Source: patient Mode of arrival: EMS Limitations: no limitations History of Present Illness: Patient is a nice 83-year-old male who presents to ED today with complaint of right lower abdominal pain starting a few hours ago. Patient states earlier today he felt bloated and felt like he probably needed an enema. Patient states he administered an enema at home and following this, he did have a normal bowel movement. He states following this he began developing right lower abdominal pain. He feels nauseous. He states he did have a small amount of emesis this morning and reported it to be clear liquid . He states previous abdominal surgeries include a partial colectomy stating that my colon was twisted . He is also reportedly had an attempted hernia repair with mesh but this was unsuccessful. [facility] also reports a history of small bowel obstruction. Was admitted here back in April with SBO. MD elicited complaint: abdominal pain Pertinent past history: other (hernia, SBO, partial colectomy) Onset (ago): hour(s) Location: RLQ Radiation: none Migration to: no migration Exacerbating factors: nothing Relieving factors: nothing Associated Symptoms: Reports bloating, nausea and vomiting (small amount this AM- clear liquid ); Denies chills, dysuria, fever(s), hematochezia, hematuria, hematemesis and melena Related Data Home Medications Medication Instructions Recorded Confirmed sennosides 15 mg tablet (Laxative 15 mg PO DAILY PRN Constipation 10/23/21 03/28/24 (sennosides)) atorvastatin 40 mg tablet 40 mg PO QAM 03/28/24 03/28/24 dorzolamide 22.3 mg-timolol 6.8 1 drp ophthalmic (eye) BID 03/28/24 03/28/24 mg/mL eye drops Previous Rx's Medication Instructions Recorded blood-glucose meter #1 ea 02/12/22 lancets #100 ea 02/12/22 nitroglycerin 0.4 mg sublingual 0.4 mg sublingual Q5M PRN Chest 10/09/22 tablet Pain #20 tabs walker with large wheels and seat #1 ea 12/02/22 blood sugar diagnostic (Blood #50 ea 02/18/23 Glucose Test strips) isosorbide mononitrate 30 mg 30 mg PO QAM #90 tabs 09/09/23 tablet,extended release 24 hr metoprolol succinate 25 mg 25 mg PO QAM #90 tabs 09/09/23 tablet,extended release 24 hr amlodipine 5 mg tablet 2.5 mg (1/2 x 5 mg) PO QPM #30 tabs 10/13/23 glimepiride 2 mg tablet 2 mg PO QAM #100 tabs 10/13/23 lisinopril 40 mg tablet 40 mg PO QAM #30 tabs 10/13/23 lancets 33 gauge (OneTouch Delica #100 ea 11/25/23 Plus Lancet) empagliflozin 25 mg tablet 25 mg PO QAM #90 tabs 03/10/24 (Jardiance) Allergies Allergy/AdvReac Type Severity Reaction Status Date / Time Sulfa (Sulfonamide Allergy Unknown Unknown Verified 02/23/24 13:33 Antibiotics) Review of Systems 2 Const: Denies: fever(s), chills, body aches, fatigue or malaise Card: Denies: chest pain Resp: Denies: dyspnea GI: Reports: abdominal pain, nausea, vomiting (small amount this AM- clear liquid ) and bloating; Denies: hematemesis, hematochezia or melena : Denies: flank pain, dysuria or hematuria Musc: Denies: back pain Skin/Breast: Denies: rash Neuro: Denies: dizziness PFSH ED 2 PFSH: Medical History Enlarged and hypertrophic nails History of nonmelanoma skin cancer Left ventricular hypertrophy Asymptomatic bradycardia Elevated blood pressure reading in office with diagnosis of hypertension Diabetes Rheumatoid arthritis HTN (hypertension) Recurrent incisional hernia Ventral hernia with bowel obstruction Partial small bowel obstruction Lipoma of back Osteoarthritis Macular degeneration Surgical History S/P colon resection Family History Father Myocardial infarction Grandfather Myocardial infarction Grandmother Cancer Social History Smoking and tobacco/nicotine status: tobacco/nicotine user, details unknown Second hand smoke exposure: No Substance/Drug Use: never Lives independently: Yes Household members: none Marital status: Current occupational status: retired Current gender identity: Male Special mine needs: No Physical Exam 2 Const: COMMON NORMALS: no acute distress, patient oriented x3, no limitations, alert and well nourished GENERAL APPEARANCE: cooperative Resp: COMMON NORMALS: normal respiratory effort and clear to auscultation bilaterally AUSCULTATION: clear to auscultation bilaterally Cardio: COMMON NORMALS: regular rate and regular rhythm RATE: regular rate RHYTHM: regular rhythm GI: COMMON NORMALS: Soft to palpation INSPECTION: Yes other (large abdominal wall defects appreciated; no incarceration/strangulation) A USCULTATION: Yes normoactive bowel sounds PALPATION: Yes Soft to palpation and Yes Tenderness to palpation present (GI) Details: RLQ : COMMON NORMALS: Yes no CVA tenderness BLADDER/KIDNEY EXAM: Yes no CVA tenderness Back/Pelvis: COMMON NORMALS: no CVA tenderness Neuro: COMMON NORMALS: patient oriented x3 SENSORIUM/ORIENTATION: Yes alert Course 2 Consultations: Consultation #1: Dr. Hummel-recommending NG tube placement, IV fluid replacement, and admit to hospitalist; he will consult and manage SBO Consultation #2: Dr. Ventura-accepts hospitalization Vital Signs: Vital signs: Vital Signs Temperature 98.0 F 03/28/24 12:21 Pulse Rate 65 03/28/24 12:21 Blood Pressure 180/99 03/28/24 12:21 Pulse Oximetry 95 03/28/24 12:21 Oxygen Delivery Me thod Room Air 03/28/24 12:21 MDM - Abdominal Pain Medical Decision Making CT scan showing a moderate distal bowel obstruction. Spoke to Dr. Hummel who is recommending NG tube placement and normal saline at 100ml/hr. he will consult on the patient. Recommending admission to hospitalist. Spoke to Dr. Ventura who will accept admission. Differential Diagnosis Likely small bowel obstruction Medical Records I reviewed the patient's medical records. Lab Data I reviewed the patient's lab results. 03/28/24 12:24 03/28/24 12:24 Labs/Radiology: Radiology Impressions Abdomen/Pelvis CT 03/28/24 12:20 IMPRESSION: 1. Moderate distal small bowel obstruction. There is a large RIGHT abdominal wall hernia sac which contains dilated and nondilated small bowel and proximal nondilated colon. No free air. No ischemia at this time. Recommend surgical consultation. 2. Cholelithiasis without acute cholecystitis. 3. Supraumbilical abdominal wall hernia contains transverse colon with no obstruction. Laboratory Results WBC 11.97 10^3/uL (3.29-11.43) H 03/28/24 12:24 RBC 5.10 10^6/uL (3.85-5.65) 03/28/24 12:24 Hgb 16.30 g/dL (11.27-16.99) 03/28/24 12:24 Hct 49.0 % (37-53) 03/28/24 12:24 MCV 96.1 fl (82-101) 03/28/24 12:24 MCH 32.0 pg (27-33) 03/28/24 12:24 MCHC 33.3 g/dL (30-55) 03/28/24 12:24 RDW 12.7 % (12.1-15.1) 03/28/24 12:24 Plt Count 242 10^3/cmm (157-399) 03/28/24 12:24 MPV 9.8 fL (7.4-10.4) 03/28/24 12:24 Neut % (Auto) 74.7 % 03/28/24 12:24 Lymph % (Auto) 14.7 % 03/28/24 12:24 Hale % (Auto) 8.4 % 03/28/24 12:24 Eos % (Auto) 1.2 % 03/28/24 12:24 Baso % (Auto) 0.4 % 03/28/24 12:24 Neut # (Auto) 8.94 10^3/uL (1.8-7.7) H 03/28/24 12:24 Lymph # (Auto) 1.8 10^3/uL (0.8-4.8) 03/28/24 12:24 Hale # (Auto) 1.0 10^3/uL (0.2-0.9) H 03/28/24 12:24 Eos # (Auto) 0.1 10^3/uL (0.0-0.8) 03/28/24 12:24 Baso # (Auto) 0.1 10^3/uL (0.0-0.1) 03/28/24 12:24 Nucleated RBC % (auto) 0 % 03/28/24 12:24 Nucleated RBCs # 0.0 /100WBC 03/28/24 12:24 Sodium 137 mmol/L (136-145) 03/28/24 12:24 Potassium 4.3 mmol/L (3.5-5.1) 03/28/24 12:24 Chloride 100 mmol/L (98-107) 03/28/24 12:24 Carbon Dioxide 25 mmol/L (22-29) 03/28/24 12:24 Anion Gap 16.3 (5-19) 03/28/24 12:24 BUN 18 mg/dL (8-23) 03/28/24 12:24 Creatinine 1.0 mg/dL (0.7-1.2) 03/28/24 12:24 GFR Calculation Not Reportable 03/28/24 12:24 Glucose 127 mg/dL (65-115) H 03/28/24 12:24 Calculated Osmolality 287 mOsm/kg (285-295) 03/28/24 12:24 Calcium 9.9 mg/dL (8.5-10.5) 03/28/24 12:24 Total Bilirubin 0.4 mg/dL (0.15-1.2) 03/28/24 12:24 AST 13 U/L (0-40) 03/28/24 12:24 ALT 15 U/L (0-41) 03/28/24 12:24 Alkaline Phosphatase 117 U/L (40-130) 03/28/24 12:24 Total Protein 7.2 g/dL (6.6-8.7) 03/28/24 12:24 Albumin 4.1 g/dL (3.5-5.2) 03/28/24 12:24 Globulin 3.1 g/dL (1.3-4.6) 03/28/24 12:24 Lipase 31 U/L (13-60) 03/28/24 12:24 Urine Color Yellow (Yellow) 03/28/24 13:02 Urine Appearance Clear (CLEAR) 03/28/24 13:02 Urine pH 5.5 (5-7) 03/28/24 13:02 Ur Specific Blaine 1.033 (1.005-1.030) H 03/28/24 13:02 Urine Protein Negative (Negative) 03/28/24 13:02 Urine Glucose (UA) 3+ (Normal) H 03/28/24 13:02 Urine Ketones Negative (Negative) 03/28/24 13:02 Urine Blood Negative (Negative) 03/28/24 13:02 Urine Nitrate Negative (Negative) 03/28/24 13:02 Urine Bilirubin Negative (Negative) 03/28/24 13:02 Urine Urobilinogen 1.0 mg/dL (Negative) 03/28/24 13:02 Ur Leukocyte Esterase 1+ (Negative) A 03/28/24 13:02 Urine RBC 0-2 /hpf (0-2) 03/28/24 13:02 Urine WBC 21-50 /hpf (0-5) H 03/28/24 13:02 Ur Squamous Epith Cells 0-5 /hpf (0-5) 03/28/24 13:02 Amorphous Sediment Not Reportable 03/28/24 13:02 Urine Bacteria None seen /hpf (NONE) 03/28/24 13:02 Hyaline Casts 0-4 /lpf H 03/28/24 13:02 All radiology interpretation(s) finalized by discharge Discharge Plan Discharge Patient Disposition: Admitted As Inpatient Clinical Impression: Small bowel obstruction Condition: Stable Prescriptions: No Action (DME) walker with large wheels and seat See Rx Instructions .Route .MEDSUPPLY Qty: 1 0RF Rx Instructions: As directed Laxative (sennosides) 15 mg tablet 15 mg PO DAILY PRN (Reason: Constipation) amlodipine 5 mg tablet 2.5 mg PO QPM Qty: 30 3RF glimepiride 2 mg tablet 2 mg PO QAM Qty: 100 1RF Rx Instructions: AT 7AM lisinopril 40 mg tablet 40 mg PO QAM Qty: 30 5RF (DME) blood-glucose meter Kit See Rx Instructions .ROUTE .MEDSUPPLY Qty: 1 0RF Rx Instructions: testing daily (DME) lancets Misc See Rx Instructions .Route Qty: 100 0RF Rx Instructions: daily nitroglycerin 0.4 mg tablet, sublingual 0.4 mg sublingual Q5M PRN (Reason: Chest Pain) Qty: 20 2RF (DME) Blood Glucose Test Strip See Rx Instructions .ROUTE .MEDSUPPLY Qty: 50 3RF Rx Instructions: testing daily isosorbide mononitrate 30 mg tablet extended release 24 hr 30 mg PO QAM Qty: 90 1RF metoprolol succinate 25 mg tablet extended release 24 hr 25 mg PO QAM Qty: 90 1RF (DME) lancets [OneTouch Delica Plus Lancet] 33 gauge misc See Rx Instructions .Route Qty: 100 0RF Rx Instructions: As directed Jardiance 25 mg tablet 25 mg PO QAM Qty: 90 1RF dorzolamide-timolol 22.3-6.8 mg/mL drops 1 drp ophthalmic (eye) BID atorvastatin 40 mg tablet 40 mg PO QAM Referrals: Curtis Adair MD [Primary Care Provider] - Coding Level of Care Code ED [employer] for [facility] D Thompson
[2024-03-28 12:41] LABS: Basophils # 0.1 10^3/uL (0.0-0.1); Basophils % 0.4 %; Eosinophils # 0.1 10^3/uL (0.0-0.8); Eosinophils % 1.2 %; Lymphocytes # 1.8 10^3/uL (0.8-4.8); Lymphocytes % 14.7 %; Mean Corpuscular HGB Conc 33.3 g/dL (30-55); Mean Corpuscular Volume 96.1 fl (82-101); Mean Platelet Volume 9.8 fL (7.4-10.4); Monocytes % 8.4 %; Neutrophils # 8.94 10^3/uL (1.8-7.7); Neutrophils % 74.7 %; Nucleated Red Blood Cells % 0 %; Platelet Count 242 10^3/cmm (157-399); Red Cell Distribution Width 12.7 % (12.1-15.1); White Blood Count 11.97 10^3/uL (3.29-11.43)
[2024-03-28 13:00] LABS: Alanine Aminotransferase 15 U/L (0-41); Albumin Level 4.1 g/dL (3.5-5.2); Alkaline Phosphatase 117 U/L (40-130); Anion Gap 16.3 (5-19); Aspartate Amino Transferase 13 U/L (0-40); Blood Urea Nitrogen 18 mg/dL (8-23); Calcium 9.9 mg/dL (8.5-10.5); Carbon Dioxide 25 mmol/L (22-29); Chloride 100 mmol/L (98-107); Creatinine Clr Calc Pharmacy 68.8041; Globulin 3.1 g/dL (1.3-4.6); Glucose 127 mg/dL (65-115); Lipase 31 U/L (13-60); Osmolality Calculated 287 mOsm/kg (285-295); Potassium 4.3 mmol/L (3.5-5.1); Sodium 137 mmol/L (136-145); Total Bilirubin 0.4 mg/dL (0.15-1.2); Total Protein 7.2 g/dL (6.6-8.7)
[2024-03-28] MEDS: iohexol 350 mg/mL 500 mL Btl (per mL) IV (13:18)
[2024-03-28 13:21] LABS: Bilirubin Urine Negative (Negative); Blood Urine Negative (Negative); Glucose Urine UA 3+ (Normal); Ketones Urine Negative (Negative); Leukocyte Esterase Urine 1+ (Negative); Nitrate Urine Negative (Negative); Protein Urine Negative (Negative); Urine Appearance Clear (CLEAR); Urine Color Yellow (Yellow); pH Urine 5.5 (5-7)
[2024-03-28 13:27] LABS: Add Urine Microscopic? YES; Bacteria Urine None Seen /hpf; Hyaline Casts Urine 0-4 /lpf; RBC Urine 0-2 /hpf (0-2); Squamous Epithelial Cell Urine 0-5 /hpf (0-5); WBC Urine 21-50 /hpf (0-5)
[2024-03-28 13:39] LABS: Add Urine Culture? Yes; Specific Gravity, Urine 1.033 (1.005-1.030)
[2024-03-28] MEDS: LORazepam 2 mg/mL INJ 1 mL 1 MG IVP ×2 (14:27→14:44)
--- NOTE | 2024-03-28 14:58 | XRR_ITS ---
PROCEDURE INFORMATION: Exam: XR Chest Exam date and time: 03/28/2024 3:02 PM Age: 83 years old Clinical indication: Device placement; Ng tube; Additional info: Post ng placement TECHNIQUE: Imaging protocol: Radiologic exam of the chest. Views: 1 view. COMPARISON: CR XR chest 1V portable [id number] 05/02/2023 10:13 AM FINDINGS: Lungs: No focal consolidation. Pleural spaces: No evidence of pneumothorax. No evidence of pleural effusion. Heart/Mediastinum: Enteric tube in place with tip in the region of the gastric body and side hole distal to the GE junction. Bones/joints: No evidence of acute osseous abnormality. XR/XR chest 1V portable [id number] IMPRESSION: 1. Enteric tube in place with tip in the region of the gastric body and side hole distal to the GE junction.
--- NOTE | 2024-03-28 15:47 | PM.CONSULT ---
Providers/Reason For Consult Consulting Physician/Specialty*: Dr. Demetrius Hummel, DO/General Surgery Reason for Consult*: Recurrent small bowel obstruction Attending Physician: Delmi Ventura MD Primary Care Provider: Curtis Adair MD History of Present Illness History of Present Illness Jens Poe is a 83 year old male with a recurrent incisional hernia with complete loss of domain. He has had multiple small bowel obstructions that have been successfully treated with conservative management. He comes back in with another obstruction. He reports diffuse abdominal pain that does not radiate. Palpation makes pain worse. Nothing's pain better. Denies any nausea, emesis, diarrhea, constipation, hematochezia and/or melena. Review of Systems General: Reports: 10 or more systems reviewed and unremarkable except in HPI and below Medications/Allergies Home Medications ?Medication ?Instructions ?Recorded ?Confirmed ?Last Taken ?Type sennosides 15 mg tablet (Laxative 15 mg PO DAILY PRN Constipation 10/23/21 03/28/24 11/10/21 History (sennosides)) blood-glucose meter #1 ea 02/12/22 03/28/24 Unknown Rx lancets #100 ea 02/12/22 03/28/24 Unknown Rx nitroglycerin 0.4 mg sublingual 0.4 mg sublingual Q5M PRN Chest 10/09/22 03/28/24 Unknown Rx tablet Pain #20 tabs walker with large wheels and seat #1 ea 12/02/22 03/28/24 Unknown Rx blood sugar diagnostic (Blood #50 ea 02/18/23 03/28/24 Unknown Rx Glucose Test strips) isosorbide mononitrate 30 mg 30 mg PO QAM #90 tabs 09/09/23 03/28/24 03/28/24 Rx tablet,extended release 24 hr metoprolol succinate 25 mg 25 mg PO QAM #90 tabs 09/09/23 03/28/24 03/28/24 Rx tablet,extended release 24 hr glimepiride 2 mg tablet 2 mg PO QAM #100 tabs 10/13/23 03/28/24 03/27/24 Rx lisinopril 40 mg tablet 40 mg PO QAM #30 tabs 10/13/23 03/28/24 03/28/24 Rx lancets 33 gauge (OneTouch Delica #100 ea 11/25/23 03/28/24 Unknown Rx Plus Lancet) empagliflozin 25 mg tablet 25 mg PO QAM #90 tabs 03/10/24 03/28/24 03/28/24 Rx (Jardiance) atorvastatin 40 mg tablet 40 mg PO QAM 03/28/24 03/28/24 03/28/24 History dorzolamide 22.3 mg-timolol 6.8 1 drp ophthalmic (eye) BID 03/28/24 03/28/24 03/28/24 History mg/mL eye drops amlodipine 5 mg tablet 10 mg (2 x 5 mg) PO DAILY #30 tabs 03/30/24 03/28/24 03/27/24 Rx Allergies Allergy/AdvReac Type Severity Reaction Status Date / Time Sulfa (Sulfonamide Allergy Unknown Unknown Verified 02/23/24 13:33 Antibiotics) PFSH Acute PFSH: Medical History Enlarged and hypertrophic nails History of nonmelanoma skin cancer Left ventricular hypertrophy Asymptomatic bradycardia Elevated blood pressure reading in office with diagnosis of hypertension Diabetes Rheumatoid arthritis HTN (hypertension) Recurrent incisional hernia Ventral hernia with bowel obstruction Partial small bowel obstruction Lipoma of back Osteoarthritis Macular degeneration Surgical History S/P colon resection Family History Father Myocardial infarction Grandfather Myocardial infarction Grandmother Cancer Social History Smoking and tobacco/nicotine status: tobacco/nicotine user, details unknown Second hand smoke exposure: No Substance/Drug Use: never Lives independently: Yes Household members: none Marital status: Current occupational status: retired Current gender identity: Male Special mine needs: No Vitals/I&O/Wt Last Vital Signs Temp 98.0 F 03/28/24 12:21 Pulse 65 03/28/24 12:21 BP 176/94 03/28/24 13:59 Pulse Ox 94 03/28/24 13:59 O2 Del Method Room Air 03/28/24 12:21 Weight last 48 hrs Weight 230 lb Physical Exam Narrative: General : Patient is well developed , no acute distress, oriented x3 Head : Normal cephalic, a-traumatic. Ears : Pinnae and external canal are normal. Hearing is normal. Eyes : PERRLA, Sclera and injection are normal. No conjunctival discharge. Nose : Mucous membranes are without erythema. Throat : buccal mucosa is normal, gums are without significant recession or hypertrophy. Lungs : Equal chest rise bilaterally, no use of accessory muscles, trachea is midline. Cor : Rate and rhythm are normal. Abdomen : Soft, mild distention, mild diffuse tenderness, no g/r/m Extremities : No edema, no cyanosis or clubbing, dorsalis pedis pulses are present bilaterally, non-tender to palpation of calves. Upper extremities are normal bilaterally. Back : non-tender to palpation, no CVA tenderness. Neuro : CN II - XII intact, Upper and lower extremities have equal and full strength Data 03/30/24 05:33 03/30/24 05:33 A&P Assessment and plan (1) Small bowel obstruction: Plan Conservative management with IV fluids and nasogastric suctioning If his obstruction does not resolve with conservative management, we will have to consider diagnostic laparoscopy versus exploratory laparotomy Medical management per hospitalist Coding Level of Care Code 68788 Diagnoses Small bowel obstruction K56.609
[2024-03-28] MEDS: sodium chloride 0.9% 1,000 ML 100 ML IV (15:55)
--- NOTE | 2024-03-28 16:45 | P.HP_ITS ---
Providers/Chief Complaint 2 Admitting Physician: Delmi Ventura MD Primary Care Provider: Curtis Adair MD Chief Complaint: URQ Pain History of Present Illness Jens Poe is a 83 year old male who has a recurrent incisional hernia and small bowel obstruction, hypertension, peripheral neuropathy, onychodystrophy, rheumatoid arthritis, diabetes, hypertension, osteoarthritis, hyperlipidemia. He presented to the emergency room today with chief complaints of right lower abdominal pain which started earlier this morning. He stated that it feels bloated and thought he was constipated. He is also complaining of nausea and vomiting with return of mostly water contents. 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 He underwent CT of the abdomen and pelvis today which showed distal small bowel obstruction. Large right abdominal wall hernia sac containing dilated small bowel loops and proximal nondilated colon. Surgical consult has been ordered with Dr. Hummel from the emergency room. Patient currently has a nasogastric tube in place and has received some Ativan. He is somnolent at the time of this assessment. However is able to wake up to answer orientation questions. He is unable to provide much history at this time. History is gathered by looking at prior documentation and talking to the emergency room provider. Patient was also noted to have hypertension with blood pressure 189/99 for which she has received 1.25 mg dose of IV enalaprilat in the emergency room. At the time of this assessment his blood pressure is improved to 159/91 mmHg. Review of Systems 2 General: Reports: ROS unobtainable due to medical condition Medications/Allergies Home Medications Medication Instructions Recorded Confirmed Last Taken Type sennosides 15 mg tablet (Laxative 15 mg PO DAILY PRN Constipation 10/23/21 03/28/24 11/10/21 History (sennosides)) blood-glucose meter #1 ea 02/12/22 03/28/24 Unknown Rx lancets #100 ea 02/12/22 03/28/24 Unknown Rx nitroglycerin 0.4 mg sublingual 0.4 mg sublingual Q5M PRN Chest 10/09/22 03/28/24 Unknown Rx tablet Pain #20 tabs walker with large wheels and seat #1 ea 12/02/22 03/28/24 Unknown Rx blood sugar diagnostic (Blood #50 ea 02/18/23 03/28/24 Unknown Rx Glucose Test strips) isosorbide mononitrate 30 mg 30 mg PO QAM #90 tabs 09/09/23 03/28/24 03/28/24 Rx tablet,extended release 24 hr metoprolol succinate 25 mg 25 mg PO QAM #90 tabs 09/09/23 03/28/24 03/28/24 Rx tablet,extended release 24 hr amlodipine 5 mg tablet 2.5 mg (1/2 x 5 mg) PO QPM #30 tabs 10/13/23 03/28/24 03/27/24 Rx glimepiride 2 mg tablet 2 mg PO QAM #100 tabs 10/13/23 03/28/24 03/27/24 Rx lisinopril 40 mg tablet 40 mg PO QAM #30 tabs 10/13/23 03/28/24 03/28/24 Rx lancets 33 gauge (OneTouch Delica #100 ea 11/25/23 03/28/24 Unknown Rx Plus Lancet) empagliflozin 25 mg tablet 25 mg PO QAM #90 tabs 03/10/24 03/28/24 03/28/24 Rx (Jardiance) atorvastatin 40 mg tablet 40 mg PO QAM 03/28/24 03/28/24 03/28/24 History dorzolamide 22.3 mg-timolol 6.8 1 drp ophthalmic (eye) BID 03/28/24 03/28/24 03/28/24 History mg/mL eye drops Allergies Allergy/AdvReac Type Severity Reaction Status Date / Time Sulfa (Sulfonamide Allergy Unknown Unknown Verified 02/23/24 13:33 Antibiotics) PFSH Acute 2 PFSH: Medical History Enlarged and hypertrophic nails History of nonmelanoma skin cancer Left ventricular hypertrophy Asymptomatic bradycardia Elevated blood pressure reading in office with diagnosis of hypertension Diabetes Rheumatoid arthritis HTN (hypertension) Recurrent incisional hernia Ventral hernia with bowel obstruction Partial small bowel obstruction Lipoma of back Osteoarthritis Macular degeneration Surgical History S/P colon resection Family History Father Myocardial infarction Grandfather Myocardial infarction Grandmother Cancer Social History Smoking and tobacco/nicotine status: tobacco/nicotine user, details unknown Second hand smoke exposure: No Substance/Drug Use: never Lives independently: Yes Household members: none Marital status: Current occupational status: retired Current gender identity: Male Special mine needs: No Vitals/I&O/Wt Last Vital Signs Temp 98.0 F 03/28/24 12:21 Pulse 63 03/28/24 16:16 BP 159/91 03/28/24 16:16 Pulse Ox 96 03/28/24 16:16 O2 Del Method Room Air 03/28/24 12:21 Weight last 48 hrs Weight 104.326 kg Physical Exam 2 Narrative: General: NGT in place. Appears to be uncomfortable related to NGT placement HEENT: PERRLA, pupils bilaterally equal and reactive, pallors not present Chest: Normal vesicular breath sounds, no added sounds, equal good air entry bilaterally CVS: S1-S2 regular, no murmurs, no tachycardia, no gallops, no rubs Abdomen: Distended, incisional hernia noted. No signs of strangulation at this time Neuro: No focal deficits grossly, however exam limited by patient's somnolence after having received Ativan. Data 03/28/24 12:24 03/28/24 12:24 Other data: Radiology Impressions Abdomen/Pelvis CT 03/28/24 12:20 IMPRESSION: 1. Moderate distal small bowel obstruction. There is a large RIGHT abdominal wall hernia sac which contains dilated and nondilated small bowel and proximal nondilated colon. No free air. No ischemia at this time. Recommend surgical consultation. 2. Cholelithiasis without acute cholecystitis. 3. Supraumbilical abdominal wall hernia contains transverse colon with no obstruction. Chest X-Ray 03/28/24 14:58 IMPRESSION: 1. Enteric tube in place with tip in the region of the gastric body and side hole distal to the GE junction. Laboratory Results WBC 11.97 10^3/uL (3.29-11.43) H 03/28/24 12:24 RBC 5.10 10^6/uL (3.85-5.65) 03/28/24 12:24 Hgb 16.30 g/dL (11.27-16.99) 03/28/24 12:24 Hct 49.0 % (37-53) 03/28/24 12:24 MCV 96.1 fl (82-101) 03/28/24 12:24 MCH 32.0 pg (27-33) 03/28/24 12:24 MCHC 33.3 g/dL (30-55) 03/28/24 12:24 RDW 12.7 % (12.1-15.1) 03/28/24 12:24 Plt Count 242 10^3/cmm (157-399) 03/28/24 12:24 MPV 9.8 fL (7.4-10.4) 03/28/24 12:24 Neut % (Auto) 74.7 % 03/28/24 12:24 Lymph % (Auto) 14.7 % 03/28/24 12:24 [place] % (Auto) 8.4 % 03/28/24 12:24 Eos % (Auto) 1.2 % 03/28/24 12:24 Baso % (Auto) 0.4 % 03/28/24 12:24 Neut # (Auto) 8.94 10^3/uL (1.8-7.7) H 03/28/24 12:24 Lymph # (Auto) 1.8 10^3/uL (0.8-4.8) 03/28/24 12:24 [place] # (Auto) 1.0 10^3/uL (0.2-0.9) H 03/28/24 12:24 Eos # (Auto) 0.1 10^3/uL (0.0-0.8) 03/28/24 12:24 Baso # (Auto) 0.1 10^3/uL (0.0-0.1) 03/28/24 12:24 Nucleated RBC % (auto) 0 % 03/28/24 12:24 Nucleated RBCs # 0.0 /100WBC 03/28/24 12:24 Sodium 137 mmol/L (136-145) 03/28/24 12:24 Potassium 4.3 mmol/L (3.5-5.1) 03/28/24 12:24 Chloride 100 mmol/L (98-107) 03/28/24 12:24 Carbon Dioxide 25 mmol/L (22-29) 03/28/24 12:24 Anion Gap 16.3 (5-19) 03/28/24 12:24 BUN 18 mg/dL (8-23) 03/28/24 12:24 Creatinine 1.0 mg/dL (0.7-1.2) 03/28/24 12:24 GFR Calculation Not Reportable 03/28/24 12:24 Glucose 127 mg/dL (65-115) H 03/28/24 12:24 Calculated Osmolality 287 mOsm/kg (285-295) 03/28/24 12:24 Calcium 9.9 mg/dL (8.5-10.5) 03/28/24 12:24 Total Bilirubin 0.4 mg/dL (0.15-1.2) 03/28/24 12:24 AST 13 U/L (0-40) 03/28/24 12:24 ALT 15 U/L (0-41) 03/28/24 12:24 Alkaline Phosphatase 117 U/L (40-130) 03/28/24 12:24 Total Protein 7.2 g/dL (6.6-8.7) 03/28/24 12:24 Albumin 4.1 g/dL (3.5-5.2) 03/28/24 12:24 Globulin 3.1 g/dL (1.3-4.6) 03/28/24 12:24 Lipase 31 U/L (13-60) 03/28/24 12:24 Urine Color Yellow (Yellow) 03/28/24 13:02 Urine Appearance Clear (CLEAR) 03/28/24 13:02 Urine pH 5.5 (5-7) 03/28/24 13:02 Ur Specific [place] 1.033 (1.005-1.030) H 03/28/24 13:02 Urine Protein Negative (Negative) 03/28/24 13:02 Urine Glucose (UA) 3+ (Normal) H 03/28/24 13:02 Urine Ketones Negative (Negative) 03/28/24 13:02 Urine Blood Negative (Negative) 03/28/24 13:02 Urine Nitrate Negative (Negative) 03/28/24 13:02 Urine Bilirubin Negative (Negative) 03/28/24 13:02 Urine Urobilinogen 1.0 mg/dL (Negative) 03/28/24 13:02 Ur Leukocyte Esterase 1+ (Negative) A 03/28/24 13:02 Urine RBC 0-2 /hpf (0-2) 03/28/24 13:02 Urine WBC 21-50 /hpf (0-5) H 03/28/24 13:02 Ur Squamous Epith Cells 0-5 /hpf (0-5) 03/28/24 13:02 Amorphous Sediment Not Reportable 03/28/24 13:02 Urine Bacteria None seen /hpf (NONE) 03/28/24 13:02 Hyaline Casts 0-4 /lpf H 03/28/24 13:02 A&P Assessment and plan (1) Small bowel obstruction: Admit to [facility]. Patient had an NGT placed to suction in the emergency room. CT abdomen findings as above. Moderate distal SBO. Large right abdominal wall hernia sac containing dilated small bowel loops and proximal nondilated colon. Supraumbilical abdominal wall hernia containing transverse colon without any signs of obstruction. Surgery consult has been placed from the ER Normal saline 100 cc an hour. Closely monitor for any signs of hypervolemia. N.p.o. As needed morphine for pain management. (2) Incisional hernia: Longstanding, currently without signs of obstruction (3) Uncontrolled hypertension: Hydralazine 10 mg IV every 4 hours as needed while unable to take oral medications. Plan Diabetes mellitus: Low-dose insulin sliding scale while remaining n.p.o. DVT prophylaxis: Lovenox Attestations 2 Medical Necessity Statement*: Greater than 2 midnight stay is currently anticipated. Coding Level of Care Code Acute Code for Chg Fwd High MDM includes number and complexity of problems actively addressed during encounter, amount and/or complexity of data reviewed/ordered and described risk of complication, morbidity or mortality of management as documented Diagnoses Small bowel obstruction K56.609 Incisional hernia K43.2 Uncontrolled hypertension I10
[2024-03-28 17:06] LABS: Glucose Point of Care 109 mg/dL (70-110)
[2024-03-28] MEDS: pantoprazole 40 mg SDV IVP (17:14)
[2024-03-28] MEDS: enoxaparin 40 mg/0.4 mL Syringe SUBCUT (17:14)
[2024-03-28] MEDS: morphine 4 mg/mL SDV 1 mL 2 MG IVP ×2 (17:15→21:45)
[2024-03-28] MEDS: dorzolamide/timolol Op Soln 10 mL Btl 1 DROP EYE-BOTH (17:16)
[2024-03-28 17:21] LABS: NT Pro B Type Natriuretic Pept 142 pg/mL (0-450)
[2024-03-28 20:11] LABS: Glucose Point of Care 97 mg/dL (70-110)
--- NOTE | 2024-03-28 21:40 | PC.NURSE ---
Pt had what appeared to be an 11 beat run of v tach. Most leads were off of pt tho. VSS: 159/78, 72bpm, 95% on RA. Dr. David advised and strip placed on chart.
[2024-03-29] VITALS (12 sets, daily range): BP systolic 154–193; BP diastolic 68–99; PULSE 58–67; RESP 15–18; TEMP 36.8–37; O2SAT 92–95
[2024-03-29] MEDS: sodium chloride 0.9% 1,000 ML 100 ML IV ×2 (00:20→10:56)
[2024-03-29] MEDS: morphine 4 mg/mL SDV 1 mL 2 MG IVP ×3 (02:23→11:05)
[2024-03-29 05:24] LABS: Basophils % 0.3 %; Eosinophils # 0.2 10^3/uL (0.0-0.8); Eosinophils % 1.8 %; Hematocrit 45.8 % (37-53); Lymphocytes # 1.8 10^3/uL (0.8-4.8); Lymphocytes % 17.7 %; Mean Corpuscular HGB Conc 32.5 g/dL (30-55); Mean Corpuscular Hemoglobin 31.1 pg (27-33); Mean Corpuscular Volume 95.6 fl (82-101); Mean Platelet Volume 9.5 fL (7.4-10.4); Monocytes % 9.2 %; Neutrophils # 7.34 10^3/uL (1.8-7.7); Neutrophils % 70.6 %; Nucleated Red Blood Cells % 0 %; Platelet Count 195 10^3/cmm (157-399); Red Blood Count 4.79 10^6/uL (3.85-5.65); Red Cell Distribution Width 12.7 % (12.1-15.1)
[2024-03-29 05:59] LABS: Alanine Aminotransferase 11 U/L (0-41); Albumin Level 3.4 g/dL (3.5-5.2); Alkaline Phosphatase 90 U/L (40-130); Anion Gap 14.1 (5-19); Aspartate Amino Transferase 12 U/L (0-40); Blood Urea Nitrogen 15 mg/dL (8-23); Calcium 8.6 mg/dL (8.5-10.5); Carbon Dioxide 25 mmol/L (22-29); Chloride 105 mmol/L (98-107); Creatinine Clr Calc Pharmacy 77.0714; Globulin 2.4 g/dL (1.3-4.6); Glucose 97 mg/dL (65-115); Magnesium 1.9 mg/dL (1.7-2.3); Osmolality Calculated 291 mOsm/kg (285-295); Potassium 4.1 mmol/L (3.5-5.1); Sodium 140 mmol/L (136-145); Total Bilirubin 0.7 mg/dL (0.15-1.2); Total Protein 5.8 g/dL (6.6-8.7)
[2024-03-29 06:25] LABS: Glucose Point of Care 109 mg/dL (70-110)
[2024-03-29] MEDS: dorzolamide/timolol Op Soln 10 mL Btl 1 DROP EYE-BOTH ×2 (08:00→17:23)
[2024-03-29] MEDS: metoprolol succinate ER (24 HR) 25 mg Tablet PO (08:01)
[2024-03-29] MEDS: hyDRALAzine 20 mg/mL INJ 1 mL 10 MG IVP ×2 (08:01→11:01)
--- NOTE | 2024-03-29 10:10 | PC.CHAP ---
Pastoral Care Encounter/Spiritual Assessment Type of Contact [] Declined nutrition professor visit [] Patient/Family/Request visit [] Outpatient visit [] Follow-up visit [] Physician referral [] Code/Alert [x] Routine visit [] Staff referral [] Actively dying [] Patient sleeping [x] Family support [] [] Out of room [] Palliative care [] [] Receiving care in room [] Pre-surgical visit [] Trauma [] Long length of stay [] ICU visit [] Other: Relational/Emotional Strength [x] Patient feels connected with others/family/visitors/staff [] Distress [] Loneliness/isolation [] Abandonment Spirituality of Patient [x] Person of Cristiana [] Attends Anabaptism of their Cristiana [x] Believes in Prayer [] Reads Bible or Alevism materials [] There are Spiritual issues to be addressed Home Health Aide Interventions [x] Prayer [x] Active listening [x] Non-anxious presence [x] Spiritual/emotional support [] Crisis/trauma care [] Spiritual counseling [] Bereavement support [] Provided bereavement packet [] Provided Bible/devotional materials [] Provided toy/stuffed animal, coloring book to patient or family member [] Provided Communion [] Anointing/[place] [] Salvation [x] Completed spiritual assessment [] Other: Impact on Illness or Injury [] Angry [] Fearful [] Anxious [] Often cries [] Exhaustion [] Unable to work [] Unable to attend taoist [] Unable to walk/stand [] Unable to read [] Unable to drive [] Unable to eat/drink [] Unable to sleep [] Unable to be with family [] Patient intubated [] Other: Summary Time spent with patient 5 min
[2024-03-29 11:27] LABS: Glucose Point of Care 108 mg/dL (70-110)
--- NOTE | 2024-03-29 13:48 | P.PN_ITS ---
Subjective 2 Subjective: Patient is awake alert. NGT was removed today he is able to pass flatus and has had some bowel movement. Blood pressure continues to be uncontrolled. Vitals/I&O/Wt Last Vital Signs Temp 98.3 F 03/29/24 11:36 Pulse 62 03/29/24 11:36 Resp 18 03/29/24 11:36 BP 191/72 03/29/24 11:36 Pulse Ox 92 03/29/24 11:36 O2 Del Method Room Air 03/29/24 11:36 03/28/24 03/29/24 03/29/24 22:59 06:59 14:59 Intake Total 0 / 0 841.667 / 675.194 2270 / 1000 Output Total 350 / 350 700 / 1050 1050 / 1050 Balance -350 / -350 141.667 / -208.333 -50 / -50 Weight last 48 hrs Weight 106.095 kg Weight 105.37 kg Weight 104.326 kg Physical Exam 2 Narrative: General: NGT in place. Appears to be uncomfortable related to NGT placement HEENT: PERRLA, pupils bilaterally equal and reactive, pallors not present Chest: Normal vesicular breath sounds, no added sounds, equal good air entry bilaterally CVS: S1-S2 regular, no murmurs, no tachycardia, no gallops, no rubs Abdomen: Distended, incisional hernia noted. No signs of strangulation at this time Neuro: No gross focal deficits. Data 03/29/24 05:15 03/29/24 05:15 Micro: Microbiology 03/28/24 13:02 Urine Culture - Preliminary Urine,Clean Catch A&P Assessment and plan (1) Small bowel obstruction: Admit to [facility]. Patient had an NGT placed to suction in the emergency room. CT abdomen findings as above. Moderate distal SBO. Large right abdominal wall hernia sac containing dilated small bowel loops and proximal nondilated colon. Supraumbilical abdominal wall hernia containing transverse colon without any signs of obstruction. Surgery consult has been placed from the ER Normal saline 100 cc an hour. Closely monitor for any signs of hypervolemia. N.p.o. As needed morphine for pain management. (2) Incisional hernia: Longstanding, currently without signs of obstruction (3) Uncontrolled hypertension: Hydralazine 10 mg IV every 4 hours as needed while unable to take oral medications. Plan Diabetes mellitus: Low-dose insulin sliding scale while remaining n.p.o. DVT prophylaxis: Lovenox March 29, 2024. NGT removed today. Patient is passing some flatus. Awaiting bowel movement. Starting to feel slightly better today. He had 1 episode of vomiting yesterday. Starting clear liquid diet. Blood pressure continues to be uncontrolled. Systolic ranging 1 90-200. Resume home medications including Imdur 30 mg daily, lisinopril 40 mg daily and amlodipine 2.5 mg p.o. daily. Hydralazine to remain as needed if blood pressure is uncontrolled in spite of these medications. reduce iVF to 75 cc/hr, d/c after current bag if able to tolerate po intake. Differential for current symptoms include viral gastroenteritis, check RVP. Attestations 2 Medical Necessity Statement*: NGT removed today, monitor for worsening symptoms,BP needs better control Coding Level of Care Code Acute Code for Chg Fwd Diagnoses Small bowel obstruction K56.609 Incisional hernia K43.2 Uncontrolled hypertension I10
[2024-03-29] MEDS: pantoprazole 40 mg SDV IVP (15:54)
[2024-03-29] MEDS: isosorbide mononitrate ER 30 mg Tablet PO (15:54)
--- NOTE | 2024-03-29 16:11 | P.PN_ITS ---
Subjective 2 Subjective: Patient passing gas. Abdominal pain much improved. Vitals/I&O/Wt Last Vital Signs Temp 98.3 F 03/30/24 12:00 Pulse 61 03/30/24 12:00 Resp 18 03/30/24 12:00 BP 164/81 03/30/24 12:00 Pulse Ox 94 03/30/24 12:00 O2 Del Method Room Air 03/30/24 12:00 03/30/24 03/30/24 03/30/24 06:59 14:59 22:59 Intake Total 0 / 2830 480 / 480 Output Total 200 / 1450 200 / 200 Balance -200 / 1380 280 / 280 Weight last 48 hrs Weight 230 lb Weight 233 lb 14.4 oz Weight 232 lb 4.8 oz Physical Exam 2 Narrative: Gen: NAD, AAOx3 Abd: S, ND, minimal diffuse tenderness, no g/r/m Data 03/30/24 05:33 03/30/24 05:33 Micro: Microbiology 03/28/24 13:02 Urine Culture - Final Urine,Clean Catch A&P Assessment and plan (1) Small bowel obstruction: (2) Incisional hernia: Plan DC NGT Clear liquids Pt has no interest in repairing hernia, which would almost certainly recur due to his complete loss of domain Medical management per primary Attestations 2 Medical Necessity Statement*: per primary Coding Level of Care Code 82074 Diagnoses Small bowel obstruction K56.609 Incisional hernia K43.2
[2024-03-29 16:38] LABS: Adenovirus Not Detected (NOT DETECT); Chlamydia Pneumoniae Not Detected (NOT DETECT); Coronavirus 229E,HKU1,NL63,OC4 Not Detected (NOT DETECT); Human Metapneumovirus Not Detected (NOT DETECT); Human Rhinovirus/Enterovirus Not Detected (NOT DETECT); Influenza A Not Detected (NOT DETECT); Influenza A H1 Not Detected (NOT DETECT); Influenza A H1-2009 Not Detected (NOT DETECT); Influenza A H3 Not Detected (NOT DETECT); Influenza B Not Detected (NOT DETECT); Mycoplasma Pneumoniae Not Detected (NOT DETECT); Parainfluenza Virus Type 1 Not Detected (NOT DETECT); Parainfluenza Virus Type 2 Not Detected (NOT DETECT); Parainfluenza Virus Type 3 Not Detected (NOT DETECT); Parainfluenza Virus Type 4 Not Detected (NOT DETECT); Respiratory Syncytial Virus A Not Detected (NOT DETECT); Respiratory Syncytial Virus B Not Detected (NOT DETECT); SARS-COV-2 Not Detected (NOT DETECT)
[2024-03-29 16:54] LABS: Glucose Point of Care 80 mg/dL (70-110)
[2024-03-29] MEDS: amlodipine 5 mg Tablet 2.5 MG PO (17:23)
[2024-03-29] MEDS: enoxaparin 40 mg/0.4 mL Syringe SUBCUT (17:23)
[2024-03-29] MEDS: acetaminophen 325 mg Tablet 650 MG PO (20:10)
[2024-03-29 20:18] LABS: Glucose Point of Care 92 mg/dL (70-110)
[2024-03-30 01:05] VITALS: PULSE 65
[2024-03-30 03:53] VITALS: BP 165/90; PULSE 66; RESP 18; TEMP 37; O2SAT 94
[2024-03-30 04:03] VITALS: RESP 16
[2024-03-30] MEDS: morphine 4 mg/mL SDV 1 mL 2 MG IVP (04:03)
[2024-03-30 05:48] LABS: Basophils % 0.3 %; Eosinophils # 0.2 10^3/uL (0.0-0.8); Eosinophils % 1.5 %; Hematocrit 45.1 % (37-53); Lymphocytes # 1.5 10^3/uL (0.8-4.8); Mean Corpuscular HGB Conc 32.6 g/dL (30-55); Mean Corpuscular Hemoglobin 31.7 pg (27-33); Mean Corpuscular Volume 97.2 fl (82-101); Mean Platelet Volume 9.6 fL (7.4-10.4); Monocytes # 1.3 10^3/uL (0.2-0.9); Monocytes % 11.2 %; Neutrophils # 8.37 10^3/uL (1.8-7.7); Neutrophils % 73.3 %; Nucleated Red Blood Cells % 0 %; Platelet Count 200 10^3/cmm (157-399); Red Blood Count 4.64 10^6/uL (3.85-5.65); Red Cell Distribution Width 12.6 % (12.1-15.1); White Blood Count 11.43 10^3/uL (3.29-11.43)
[2024-03-30 06:08] LABS: Alanine Aminotransferase 10 U/L (0-41); Albumin Level 3.3 g/dL (3.5-5.2); Alkaline Phosphatase 91 U/L (40-130); Anion Gap 15.8 (5-19); Aspartate Amino Transferase 11 U/L (0-40); Blood Urea Nitrogen 15 mg/dL (8-23); Calcium 8.6 mg/dL (8.5-10.5); Carbon Dioxide 21 mmol/L (22-29); Chloride 103 mmol/L (98-107); Globulin 2.7 g/dL (1.3-4.6); Glucose 93 mg/dL (65-115); Osmolality Calculated 283 mOsm/kg (285-295); Potassium 3.8 mmol/L (3.5-5.1); Sodium 136 mmol/L (136-145); Total Bilirubin 0.9 mg/dL (0.15-1.2)
[2024-03-30 06:28] LABS: Glucose Point of Care 96 mg/dL (70-110)
[2024-03-30 07:30] VITALS: BP 180/87; PULSE 63; RESP 18; TEMP 36.8; O2SAT 93
[2024-03-30] MEDS: dorzolamide/timolol Op Soln 10 mL Btl 1 DROP EYE-BOTH (09:37)
[2024-03-30] MEDS: metoprolol succinate ER (24 HR) 25 mg Tablet PO (09:38)
[2024-03-30] MEDS: isosorbide mononitrate ER 30 mg Tablet PO (09:38)
[2024-03-30] MEDS: lisinopril 20 mg Tablet 40 MG PO (09:38)
[2024-03-30 10:42] LABS: Glucose Point of Care 89 mg/dL (70-110)
[2024-03-30 12:00] VITALS: BP 164/81; PULSE 61; RESP 18; TEMP 36.8; O2SAT 94
--- NOTE | 2024-03-30 15:02 | P.PN_ITS ---
Subjective 2 Subjective: Vitals/I&O/Wt Last Vital Signs Temp 98.3 F 03/30/24 12:00 Pulse 61 03/30/24 12:00 Resp 18 03/30/24 12:00 BP 164/81 03/30/24 12:00 Pulse Ox 94 03/30/24 12:00 O2 Del Method Room Air 03/30/24 12:00 03/30/24 03/30/24 03/30/24 06:59 14:59 22:59 Intake Total 0 / 2830 480 / 480 Output Total 200 / 1450 200 / 200 Balance -200 / 1380 280 / 280 Weight last 48 hrs Weight 104.326 kg Weight 106.095 kg Weight 105.37 kg Data 03/30/24 05:33 03/30/24 05:33 Micro: Microbiology 03/28/24 13:02 Urine Culture - Final Urine,Clean Catch Coding Level of Care Code Acute Code for Chg Fwd
--- NOTE | 2024-03-30 15:05 | PM.DCS ---
Discharge Providers Date of Admission: 03/28/24 15:18 Date of Discharge: March 30, 2024 Attending Provider at Admission: Delmi Ventura MD Attending Provider at Discharge: Delmi Ventura MD Primary Care Provider: Curtis Adair MD Diagnoses at Discharge Discharge Diagnosis (1) Small bowel obstruction: Status: Acute (2) Incisional hernia: Status: Acute (3) Uncontrolled hypertension: Status: Acute Reason for Visit Reason for Visit: URQ Pain Hospital Course Hospital Course Jens Poe is a 83 year old male who has a recurrent incisional hernia and small bowel obstruction, hypertension, peripheral neuropathy, onychodystrophy, rheumatoid arthritis, diabetes, hypertension, osteoarthritis, hyperlipidemia. He presented to the emergency room today with chief complaints of right lower abdominal pain which started on day of admission. He stated that he felt bloated and thought he was constipated. c/o also of nausea and vomiting. He underwent CT of the abdomen and pelvis today which showed distal small bowel obstruction. Large right abdominal wall hernia sac containing dilated small bowel loops and proximal nondilated colon, which is a chronic finding for him. He was admitted to the hospital and treated conservatively with NG tube for the first night. He did well with conservative management. His vomiting is now resolved. NG tube was removed yesterday. Currently passing flatus. Able to tolerate a clear liquid and then a GI soft diet today. Hospital course complicated by uncontrolled hypertension. Blood pressure ranging between 1 90-200 systolic. His home medications have been dose adjusted to increase amlodipine to 10 mg daily, continued Imdur lisinopril and metoprolol at same dosing. Recommended to follow-up with primary care physician in the next 7 to 10 days to ensure blood pressure remains at goal. Physical Exam Narrative: General: No acute distress, AO x3 HEENT: PERRLA, pupils bilaterally equal and reactive, pallors not present Chest: Normal vesicular breath sounds, no added sounds, equal good air entry bilaterally CVS: S1-S2 regular, no murmurs, no tachycardia, no gallops, no rubs Abdomen: Soft, nontender, no organomegaly, bowel sounds present Neuro: No focal deficits, no facial deformity, AO x3, power 5/5 in all limbs Discharge Data Studies Completed and Pending Completed Studies During Hospitalization Category Date Time Status CT abdomen pelvis w con* [id number] Urgent Cat Scan 03/28/24 12:20 Completed XR chest 1V portable [id number] Stat Exams 03/28/24 14:58 Completed Radiology Impressions Abdomen/Pelvis CT 03/28/24 12:20 IMPRESSION: 1. Moderate distal small bowel obstruction. There is a large RIGHT abdominal wall hernia sac which contains dilated and nondilated small bowel and proximal nondilated colon. No free air. No ischemia at this time. Recommend surgical consultation. 2. Cholelithiasis without acute cholecystitis. 3. Supraumbilical abdominal wall hernia contains transverse colon with no obstruction. Chest X-Ray 03/28/24 14:58 IMPRESSION: 1. Enteric tube in place with tip in the region of the gastric body and side hole distal to the GE junction. Laboratory Results WBC 11.43 10^3/uL (3.29-11.43) 03/30/24 05:33 RBC 4.64 10^6/uL (3.85-5.65) 03/30/24 05:33 Hgb 14.70 g/dL (11.27-16.99) 03/30/24 05:33 Hct 45.1 % (37-53) 03/30/24 05:33 MCV 97.2 fl (82-101) 03/30/24 05:33 MCH 31.7 pg (27-33) 03/30/24 05:33 MCHC 32.6 g/dL (30-55) 03/30/24 05:33 RDW 12.6 % (12.1-15.1) 03/30/24 05:33 Plt Count 200 10^3/cmm (157-399) 03/30/24 05:33 MPV 9.6 fL (7.4-10.4) 03/30/24 05:33 Neut % (Auto) 73.3 % 03/30/24 05:33 Lymph % (Auto) 13.0 % 03/30/24 05:33 [place] % (Auto) 11.2 % 03/30/24 05:33 Eos % (Auto) 1.5 % 03/30/24 05:33 Baso % (Auto) 0.3 % 03/30/24 05:33 Neut # (Auto) 8.37 10^3/uL (1.8-7.7) H 03/30/24 05:33 Lymph # (Auto) 1.5 10^3/uL (0.8-4.8) 03/30/24 05:33 [place] # (Auto) 1.3 10^3/uL (0.2-0.9) H 03/30/24 05:33 Eos # (Auto) 0.2 10^3/uL (0.0-0.8) 03/30/24 05:33 Baso # (Auto) 0.0 10^3/uL (0.0-0.1) 03/30/24 05:33 Nucleated RBC % (auto) 0 % 03/30/24 05:33 Nucleated RBCs # 0.0 /100WBC 03/30/24 05:33 Sodium 136 mmol/L (136-145) 03/30/24 05:33 Potassium 3.8 mmol/L (3.5-5.1) 03/30/24 05:33 Chloride 103 mmol/L (98-107) 03/30/24 05:33 Carbon Dioxide 21 mmol/L (22-29) L 03/30/24 05:33 Anion Gap 15.8 (5-19) 03/30/24 05:33 BUN 15 mg/dL (8-23) 03/30/24 05:33 Creatinine 0.9 mg/dL (0.7-1.2) 03/30/24 05:33 GFR Calculation Not Reportable 03/30/24 05:33 Glucose 93 mg/dL (65-115) 03/30/24 05:33 POC Glucose 89 mg/dL (70-110) 03/30/24 10:38 Calculated Osmolality 283 mOsm/kg (285-295) L 03/30/24 05:33 Calcium 8.6 mg/dL (8.5-10.5) 03/30/24 05:33 Magnesium 1.9 mg/dL (1.7-2.3) 03/29/24 05:15 Total Bilirubin 0.9 mg/dL (0.15-1.2) 03/30/24 05:33 AST 11 U/L (0-40) 03/30/24 05:33 ALT 10 U/L (0-41) 03/30/24 05:33 Alkaline Phosphatase 91 U/L (40-130) 03/30/24 05:33 NT-Pro-B Natriuret Pep 142 pg/mL (0-450) 03/28/24 12:24 Total Protein 6.0 g/dL (6.6-8.7) L 03/30/24 05:33 Albumin 3.3 g/dL (3.5-5.2) L 03/30/24 05:33 Globulin 2.7 g/dL (1.3-4.6) 03/30/24 05:33 Lipase 31 U/L (13-60) 03/28/24 12:24 Urine Color Yellow (Yellow) 03/28/24 13:02 Urine Appearance Clear (CLEAR) 03/28/24 13:02 Urine pH 5.5 (5-7) 03/28/24 13:02 Ur Specific [place] 1.033 (1.005-1.030) H 03/28/24 13:02 Urine Protein Negative (Negative) 03/28/24 13:02 Urine Glucose (UA) 3+ (Normal) H 03/28/24 13:02 Urine Ketones Negative (Negative) 03/28/24 13:02 Urine Blood Negative (Negative) 03/28/24 13:02 Urine Nitrate Negative (Negative) 03/28/24 13:02 Urine Bilirubin Negative (Negative) 03/28/24 13:02 Urine Urobilinogen 1.0 mg/dL (Negative) 03/28/24 13:02 Ur Leukocyte Esterase 1+ (Negative) A 03/28/24 13:02 Urine RBC 0-2 /hpf (0-2) 03/28/24 13:02 Urine WBC 21-50 /hpf (0-5) H 03/28/24 13:02 Ur Squamous Epith Cells 0-5 /hpf (0-5) 03/28/24 13:02 Amorphous Sediment Not Reportable 03/28/24 13:02 Urine Bacteria None seen /hpf (NONE) 03/28/24 13:02 Hyaline Casts 0-4 /lpf H 03/28/24 13:02 Adenovirus (PCR) Not detected (NOT DETECT) 03/29/24 14:30 C. pneumoniae DNA (PCR) Not detected (NOT DETECT) 03/29/24 14:30 Coronavirus 229E (PCR) Not detected (NOT DETECT) 03/29/24 14:30 Human Metapneumovir PCR Not detected (NOT DETECT) 03/29/24 14:30 Influenza A (H1) PCR Not detected (NOT DETECT) 03/29/24 14:30 Influ A (H1/09) PCR Not detected (NOT DETECT) 03/29/24 14:30 Influenza A (H3) PCR Not detected (NOT DETECT) 03/29/24 14:30 Influenza Type A (PCR) Not detected (NOT DETECT) 03/29/24 14:30 Influenza Type B (PCR) Not detected (NOT DETECT) 03/29/24 14:30 M. pneumoniae (PCR) Not detected (NOT DETECT) 03/29/24 14:30 Parainfluenza 1 (PCR) Not detected (NOT DETECT) 03/29/24 14:30 Parainfluenza 2 (PCR) Not detected (NOT DETECT) 03/29/24 14:30 Parainfluenza 3 (PCR) Not detected (NOT DETECT) 03/29/24 14:30 Parainfluenza 4 (PCR) Not detected (NOT DETECT) 03/29/24 14:30 RSV Type A (PCR) Not detected (NOT DETECT) 03/29/24 14:30 RSV Type B (PCR) Not detected (NOT DETECT) 03/29/24 14:30 Entero/Rhino (PCR) Not detected (NOT DETECT) 03/29/24 14:30 SARS-CoV-2 (PCR) Not detected (NOT DETECT) 03/29/24 14:30 Vitals Last Vital Signs Temp 98.3 F 03/30/24 12:00 Pulse 61 03/30/24 12:00 Resp 18 03/30/24 12:00 BP 164/81 03/30/24 12:00 Pulse Ox 94 03/30/24 12:00 O2 Del Method Room Air 03/30/24 12:00 Discharge Plan Discharge Patient Disposition: Home Condition: Stable Prescriptions: Continued Laxative (sennosides) 15 mg tablet 15 mg PO DAILY PRN (Reason: Constipation) glimepiride 2 mg tablet 2 mg PO QAM Qty: 100 1RF Rx Instructions: AT 7AM lisinopril 40 mg tablet 40 mg PO QAM Qty: 30 5RF nitroglycerin 0.4 mg tablet, sublingual 0.4 mg sublingual Q5M PRN (Reason: Chest Pain) Qty: 20 2RF isosorbide mononitrate 30 mg tablet extended release 24 hr 30 mg PO QAM Qty: 90 1RF metoprolol succinate 25 mg tablet extended release 24 hr 25 mg PO QAM Qty: 90 1RF Jardiance 25 mg tablet 25 mg PO QAM Qty: 90 1RF dorzolamide-timolol 22.3-6.8 mg/mL drops 1 drp ophthalmic (eye) BID atorvastatin 40 mg tablet 40 mg PO QAM Changed amlodipine 5 mg tablet 10 mg PO DAILY Qty: 30 3RF No Action (DME) walker with large wheels and seat See Rx Instructions .Route .MEDSUPPLY Qty: 1 0RF Rx Instructions: As directed (DME) blood-glucose meter Kit See Rx Instructions .ROUTE .MEDSUPPLY Qty: 1 0RF Rx Instructions: testing daily (DME) lancets Misc See Rx Instructions .Route Qty: 100 0RF Rx Instructions: daily (DME) Blood Glucose Test Strip See Rx Instructions .ROUTE .MEDSUPPLY Qty: 50 3RF Rx Instructions: testing daily (DME) lancets [OneTouch Delica Plus Lancet] 33 gauge misc See Rx Instructions .Route Qty: 100 0RF Rx Instructions: As directed Discharge Orders: Discharge Order (Routine); Ordered 03/30/24 Ordered By: Delmi Ventura Referrals: Curtis Adair MD [Primary Care Provider] - 04/14/24 10:45 am (APPOINTMENT WITH [facility]) Discharge Diet: Usual diet Discharge Activity: Resume usual activity Patient Instructions: Opioid Safety Discharge Attestations Time Spent in Discharge Care*: greater than 30 min Quality Metrics Clinical Quality Measures [ No reported AMI, CVA or VTE this stay] Coding Level of Care Code Acute Code for Chg Fwd Diagnoses Small bowel obstruction K56.609 Incisional hernia K43.2 Uncontrolled hypertension I10
[2024-03-30] MEDS: amlodipine 5 mg Tablet PO (15:32)
--- NOTE | 2024-03-30 16:11 | P.PN_ITS ---
Subjective 2 Subjective: Patient seen and examined. Having bowel movements, passing flatus and tolerating diet Vitals/I&O/Wt Last Vital Signs Temp 98.3 F 03/30/24 12:00 Pulse 61 03/30/24 12:00 Resp 18 03/30/24 12:00 BP 164/81 03/30/24 12:00 Pulse Ox 94 03/30/24 12:00 O2 Del Method Room Air 03/30/24 12:00 03/30/24 03/30/24 03/30/24 06:59 14:59 22:59 Intake Total 0 / 2830 480 / 480 Output Total 200 / 1450 200 / 200 Balance -200 / 1380 280 / 280 Weight last 48 hrs Weight 230 lb Weight 233 lb 14.4 oz Weight 232 lb 4.8 oz Physical Exam 2 Narrative: Gen: NAD, AAOx3 Abd: S, ND, nontender, no g/r/m Data 03/30/24 05:33 03/30/24 05:33 Micro: Microbiology 03/28/24 13:02 Urine Culture - Final Urine,Clean Catch A&P Assessment and plan (1) Small bowel obstruction: (2) Incisional hernia: Plan Surgically stable for discharge Pt has no interest in repairing hernia, which would almost certainly recur due to 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
[2024-03-30 16:28] VITALS: BP 164/81; PULSE 61; RESP 18; TEMP 36.8; O2SAT 94
== END 2024-03-30 15:37 | disposition home or self-care (01) | DRG 390 ==
LOC: ER 14:05 → MEDSURG 15:19
PROVIDERS: Admitting Provider Student in an Organized Health Care Education/Training Program; Emergency Provider Physician Assistant; PCP Family Medicine Adult Medicine; Visit Provider Student in an Organized Health Care Education/Training Program
DX: K56.609 Unspecified intestinal obstruction, unspecified as to partial versus complete obstruction (principal); I10 Essential (primary) hypertension; E11.9 Type 2 diabetes mellitus without complications; Z79.84 Long term (current) use of oral hypoglycemic drugs; K43.2 Incisional hernia without obstruction or gangrene
CPT/HCPCS: 36415; 36416; 71045; 74177; 80053; 81001; 82962; 83690; 83735; 83880; 85025; 87086; 87486; 87581; 87633; 96361; 96372; 96374; 96376; 99285; J0360; J1650; J2060; J2270; J2470; J7030

== ENCOUNTER → 2024-06-07 13:25 | Outpatient (BNVA) | payer MEDICARE, MEDICAID, SELFPAY | PROVIDERS: PCP Family Medicine; Visit Provider Family Medicine | DX: E78.2 Mixed hyperlipidemia (principal); E11.630 Type 2 diabetes mellitus with periodontal disease; E11.9 Type 2 diabetes mellitus without complications | CPT/HCPCS: 80053; 80061; 82043; 83036 ==

== ENCOUNTER 2024-07-23 10:59 | Emergency (ER) | payer MEDICARE, MEDICAID, SELFPAY ==
[2024-07-23 11:09] VITALS: BP 133/62; PULSE 68; RESP 18; TEMP 36.5; O2SAT 96; BMI 32.1
--- NOTE | 2024-07-23 13:18 | W.ED.DENTAL ---
HPI - Dental/Oral General: Chief complaint: Dental/Oral Stated complaint: left side tooth pain Time Seen by Provider: 07/23/24 12:51 Source: patient and family Mode of arrival: ambulatory Limitations: no limitations History of Present Illness: Tooth broke off, he scheduled appoint with a dentist for Thursday but has had continued pain and the pain has gotten worse. Is been unable to sleep. Reports it being 8 out of 10 currently. MD Complaint: tooth pain Teeth map:  1. Broken off tooth, nerve root exposed, no signs of abscess at this time Related Data Home Medications ?Medication ?Instructions ?Recorded ?Confirmed sennosides 15 mg tablet (Laxative 15 mg PO DAILY PRN Constipation 10/23/21 06/07/24 (sennosides)) dorzolamide 22.3 mg-timolol 6.8 1 drp ophthalmic (eye) BID 03/28/24 06/07/24 mg/mL eye drops Previous Rx's ?Medication ?Instructions ?Recorded blood-glucose meter #1 ea 02/12/22 lancets #100 ea 02/12/22 nitroglycerin 0.4 mg sublingual 0.4 mg sublingual Q5M PRN Chest 10/09/22 tablet Pain #20 tabs walker with large wheels and seat #1 ea 12/02/22 blood sugar diagnostic (Blood #50 ea 02/18/23 Glucose Test strips) lancets 33 gauge (OneTouch Delica #100 ea 11/25/23 Plus Lancet) empagliflozin 25 mg tablet 25 mg PO QAM #90 tabs 03/10/24 (Jardiance) amlodipine 5 mg tablet 10 mg (2 x 5 mg) PO DAILY #30 tabs 03/30/24 isosorbide mononitrate 30 mg 30 mg PO QAM #90 tabs 04/15/24 tablet,extended release 24 hr metoprolol succinate 25 mg 25 mg PO QAM #90 tabs 04/15/24 tablet,extended release 24 hr lisinopril 40 mg tablet 40 mg PO QAM #30 tabs 04/28/24 atorvastatin 40 mg tablet 40 mg PO QAM #100 tabs 06/10/24 glimepiride 2 mg tablet 2 mg PO QAM #100 tabs 07/18/24 hydrocodone 7.5 mg-acetaminophen 1 tab PO Q6H PRN pain, severe 5 07/23/24 325 mg tablet days #12 tabs ondansetron 4 mg disintegrating 4 mg PO Q8H PRN nausea and 07/23/24 tablet vomiting 5 days #20 tabs Allergies Allergy/AdvReac Type Severity Reaction Status Date / Time Sulfa (Sulfonamide Allergy Unknown Unknown Verified 06/07/24 12:48 Antibiotics) Review of Systems General: Reports: 10 or more systems reviewed and unremarkable except in HPI and below PFSH ED PFSH: Medical History Enlarged and hypertrophic nails History of nonmelanoma skin cancer Left ventricular hypertrophy Asymptomatic bradycardia Elevated blood pressure reading in office with diagnosis of hypertension Diabetes Rheumatoid arthritis HTN (hypertension) Recurrent incisional hernia Ventral hernia with bowel obstruction Partial small bowel obstruction Lipoma of back Osteoarthritis Macular degeneration Surgical History S/P colon resection Family History Father Myocardial infarction Grandfather Myocardial infarction Grandmother Cancer Social History Smoking and tobacco/nicotine status: never used tobacco/nicotine Second hand smoke exposure: No Substance/Drug Use: never Lives independently: Yes Household members: none Marital status: Current occupational status: retired Current gender identity: Male Special mine needs: No Physical Exam Const: COMMON NORMALS: patient oriented x3, alert and well nourished NUTRITIONAL APPEARANCE: obese HENMT: COMMON NORMALS: external ears normal and EAC's normal EXTERNAL EAR: Yes external ears normal EXTERNAL AUDITORY CANAL: EAC's normal OTHER: See HPI for more details. Broken off tooth #20 or 21. No root appears to be exposed. No obvious infection or abscess. Eye: COMMON NORMALS: EOMs intact bilaterally Neck/C-Spine: COMMON NORMALS: no lymphadenopathy Resp: COMMON NORMALS: clear to auscultation bilaterally AUSCULTATION: clear to auscultation bilaterally, no rales and no rhonchi Cardio: COMMON NORMALS: regular rate, regular rhythm, S1 normal heart sound present and S2 normal heart sound present RATE: regular rate RHYTHM: regular rhythm HEART SOUNDS: S1 normal heart sound present, S2 normal heart sound present, no gallops, no murmurs and no rubs GI: COMMON NORMALS: Normal to inspection, nondistended, normoactive bowel sounds present and Soft to palpation AUSCULTATION: Yes normoactive bowel sounds PALPATION: Yes Soft to palpation and No Tenderness to palpation present (GI) Extremity: GENERAL: No clubbing, No cyanosis and No edema Neuro: COMMON NORMALS: patient oriented x3 SENSORIUM/ORIENTATION: Yes alert Course Vital Signs: Vital signs: Vital Signs Temperature 97.7 F 07/23/24 11:09 Pulse Rate 68 07/23/24 11:09 Respiratory Rate 18 07/23/24 11:09 Blood Pressure 133/62 07/23/24 11:09 Pulse Oximetry 96 07/23/24 11:09 Oxygen Delivery Me thod Room Air 07/23/24 11:09 MDM - Dental/Oral Medical Decision Making Dental pain secondary to broken tooth. Patient is fairly edentulous already. Will prescribe short course of pain medications. Advised dental wax as well. Differential Diagnosis Likely fracture of tooth Medical Records I reviewed the patient's medical records. No radiology studies performed this visit Discharge Plan Discharge Patient Disposition: Home Clinical Impression: Toothache Fracture of tooth Qualifiers: Encounter type: initial encounter Fracture type: open Qualified Code(s): S02.5XXB - Fracture of tooth (traumatic), initial encounter for open fracture Condition: Stable Prescriptions: New hydrocodone-acetaminophen 7.5-325 mg tablet 1 tab PO Q6H PRN (Reason: pain, severe) 5 Days Qty: 12 0RF ondansetron 4 mg tablet,disintegrating 4 mg PO Q8H PRN (Reason: nausea and vomiting) 5 Days Qty: 20 0RF No Action (DME) walker with large wheels and seat See Rx Instructions .Route .MEDSUPPLY Qty: 1 0RF Rx Instructions: As directed metoprolol succinate 25 mg tablet extended release 24 hr 25 mg PO QAM Qty: 90 1RF isosorbide mononitrate 30 mg tablet extended release 24 hr 30 mg PO QAM Qty: 90 1RF Laxative (sennosides) 15 mg tablet 15 mg PO DAILY PRN (Reason: Constipation) (DME) blood-glucose meter Kit See Rx Instructions .ROUTE .MEDSUPPLY Qty: 1 0RF Rx Instructions: testing daily (DME) lancets Misc See Rx Instructions .Route Qty: 100 0RF Rx Instructions: daily nitroglycerin 0.4 mg tablet, sublingual 0.4 mg sublingual Q5M PRN (Reason: Chest Pain) Qty: 20 2RF (DME) Blood Glucose Test Strip See Rx Instructions .ROUTE .MEDSUPPLY Qty: 50 3RF Rx Instructions: testing daily (DME) lancets [OneTouch Delica Plus Lancet] 33 gauge misc See Rx Instructions .Route Qty: 100 0RF Rx Instructions: As directed Jardiance 25 mg tablet 25 mg PO QAM Qty: 90 1RF lisinopril 40 mg tablet 40 mg PO QAM Qty: 30 5RF atorvastatin 40 mg tablet 40 mg PO QAM Qty: 100 1RF glimepiride 2 mg tablet 2 mg PO QAM Qty: 100 1RF Rx Instructions: AT 7AM dorzolamide-timolol 22.3-6.8 mg/mL drops 1 drp ophthalmic (eye) BID amlodipine 5 mg tablet 10 mg PO DAILY Qty: 30 3RF Discharge Orders: Discharge ED (Routine); Ordered 07/23/24 Ordered By: Howie Chahal Referrals: Rosalba Lay DO [Primary Care Provider, Family Practice] Patient Instructions: Toothache (ED), Opioid Safety Activity Restrictions/Additional Instructions: Follow-up with dentist as planned. Take medication as prescribed do not overtake. Try using Tylenol and ibuprofen and use the pain medication when that does not cut it. Can also warehouse order picker dental wax as we discussed and Heather. Print Language: Pakistani Coding Level of Care Code ED Crystal Attacher for Jose D Thompson
[2024-07-23] MEDS: ondansetron hcl ODT 4 mg Tab PO (13:30)
[2024-07-23] MEDS: HYDROcodone-acetaminophen 7.5-325 mg Tablet 1 TAB PO (13:30)
[2024-07-23 13:39] VITALS: BP 145/83; PULSE 57; O2SAT 95
== END 2024-07-23 13:41 | disposition home or self-care (01) ==
PROVIDERS: Emergency Provider Emergency Medicine; PCP Family Medicine
DX: S02.5XXB Fracture of tooth (traumatic), initial encounter for open fracture (principal); K08.89 Other specified disorders of teeth and supporting structures; X58.XXXA Exposure to other specified factors, initial encounter; E11.9 Type 2 diabetes mellitus without complications; I10 Essential (primary) hypertension
CPT/HCPCS: 99283; J9999; Q0162

== ENCOUNTER → 2024-08-09 13:39 | Outpatient (BNVA) | payer MEDICARE, MEDICAID, SELFPAY | PROVIDERS: PCP Family Medicine; Visit Provider Podiatrist Foot & Ankle Surgery | DX: E11.630 Type 2 diabetes mellitus with periodontal disease (principal); L60.3 Nail dystrophy; G63 Polyneuropathy in diseases classified elsewhere | CPT/HCPCS: 11721 ==

== ENCOUNTER → 2024-09-13 15:00 | Outpatient (BNVA) | payer MEDICARE, MEDICAID, SELFPAY | PROVIDERS: PCP Family Medicine; Visit Provider Nurse Practitioner Family | DX: D18.01 Hemangioma of skin and subcutaneous tissue (principal); L57.8 Other skin changes due to chronic exposure to nonionizing radiation; L81.4 Other melanin hyperpigmentation; Z08 Encounter for follow-up examination after completed treatment for malignant neoplasm; Z85.828 Personal history of other malignant neoplasm of skin; L82.0 Inflamed seborrheic keratosis; Z78.9 Other specified health status; L53.8 Other specified erythematous conditions; L29.89 Other pruritus; R20.8 Other disturbances of skin sensation; L57.0 Actinic keratosis | CPT/HCPCS: 17000; 17110; 99213 ==

== ENCOUNTER → 2024-11-15 12:17 | Outpatient (BNVA) | payer OTHER, MEDICAID, SELFPAY | PROVIDERS: PCP Family Medicine; Visit Provider Podiatrist Foot & Ankle Surgery | DX: E11.49 Type 2 diabetes mellitus with other diabetic neurological complication (principal); L60.3 Nail dystrophy; L60.8 Other nail disorders; E11.630 Type 2 diabetes mellitus with periodontal disease; G63 Polyneuropathy in diseases classified elsewhere | CPT/HCPCS: 11721 ==

== ENCOUNTER 2024-12-18 12:40 | Emergency (ER) | payer OTHER, MEDICAID, SELFPAY ==
[2024-12-18 12:39] VITALS: BP 191/87; PULSE 62; RESP 17; TEMP 36.7; O2SAT 97
--- NOTE | 2024-12-18 12:41 | ED_ITS ---
HPI - General Adult General: Chief complaint: Skin/Abscess/Foreign Body Stated complaint: RASH History of Present Illness: 84-year-old [facility]. He has 2 areas on his stomach he said it began overnight. He has not had any fever sweats or chills. No other injuries no falls. He states areas are tender to the touch. Associated symptoms: Deny chest pain or dyspnea Related Data Home Medications ?Medication ?Instructions ?Recorded ?Confirmed sennosides 15 mg tablet (Laxative 15 mg PO DAILY PRN C onstipation 10/23/21 11/15/24 (sennosides)) dorzolamide 22.3 mg-timolol 6.8 1 drp ophthalmic (eye) BID 03/28/24 11/15/24 mg/mL eye drops Previous Rx's ?Medication ?Instructions ?Recorded blood-glucose meter #1 ea 02/12/22 lancets #100 ea 02/12/22 nitroglycerin 0.4 mg sublingual 0.4 mg sublingual Q5M PRN Chest 10/09/22 tablet Pain #20 tabs walker with large wheels and seat #1 ea 12/02/22 glimepiride 2 mg tablet 2 mg PO QAM #100 tabs blood sugar diagnostic (Blood #50 ea 08/08/24 Glucose Test strips) lancets 33 gauge (OneTouch Delica #100 ea 08/08/24 Plus Lancet) isosorbide mononitrate 30 mg 30 mg PO QAM #90 tabs 01/31 tablet,extended release 24 hr atorvastatin 40 mg tablet 40 mg PO QAM #100 tabs 10/18 empagliflozin 25 mg tablet 25 mg PO QAM #90 tabs 10/18 (Jardiance) lisinopril 40 mg tablet 40 mg PO QAM #100 tabs 10/18 metoprolol succinate 25 mg 25 mg PO QAM #90 tabs 10/18 tablet,extended release 24 hr amlodipine 5 mg tablet See Rx Instructions .Route 0 10/19/24 .COMPLEX #30 tabs mupirocin 2 % topical ointment 1 applic topical BID #1 5 grams 12/18/24 (Centany) Allergies Allergy/AdvReac Type Severity Reaction Status Date / Time Sulfa (Sulfonamide Allergy Unknown Unknown Verified 11/15/24 14:17 Antibiotics) Review of Systems Const: Denies: fever(s) or chills Card: Denies: chest pain Resp: Denies: dyspnea GI: Denies: abdominal pain : Denies: dysuria, urinary frequency or urinary urgency Musc: Denies: neck pain or back pain PFSH ED PFSH: Medical History Enlarged and hypertrophic nails History of nonmelanoma skin cancer Left ventricular hypertrophy Asymptomatic bradycardia Elevated blood pressure reading in office with diagnosis of hypertension Diabetes Rheumatoid arthritis HTN (hypertension) Recurrent incisional hernia Ventral hernia with bowel obstruction Partial small bowel obstruction Lipoma of back Osteoarthritis Macular degeneration Surgical History S/P colon resection Family History Father Myocardial infarction Grandfather Myocardial infarction Grandmother Cancer Social History Smoking and tobacco/nicotine status: never used tobacco/nicotine Second hand smoke exposure: No Substance/Drug Use: never Lives independently: Yes Household members: none Marital status: Current occupational status: retired Current gender identity: Male Special mine needs: No Physical Exam Const: COMMON NORMALS: no acute distress GENERAL APPEARANCE: cooperative and comfortable ORIENTATION/CONSCIOUSNESS: Yes awake, Yes oriented to person, Yes oriented to place and Yes oriented to time HENMT: COMMON NORMALS: normocephalic, atraumatic and hearing grossly normal bilaterally HEAD & SCALP: normocephalic and atraumatic Resp: COMMON NORMALS: normal respiratory effort, No retractions, No use of accessory muscles and clear to auscultation bilaterally AUSCULTATION: clear to auscultation bilaterally Cardio: COMMON NORMALS: regular rate, regular rhythm and No murmurs present (Cardio) RATE: regular rate RHYTHM: regular rhythm GI: COMMON NORMALS: Soft to palpation and No hepatosplenomegaly present AUSCULTATION: Yes normoactive bowel sounds PALPATION: Yes Soft to palpation, No Tenderness to palpation present (GI), No Guarding due to palpation present (GI) and Yes No hepatosplenomegaly present OTHER: Patient has rectus diastasis with significant protrusion of the right side of the abdominal wall nontender there are 2 areas that appear to be pressure ulcers or ulcers on the abdominal wall his abdomen is quite protuberant they are at the belt line. 1 to the left of the midline 1 right near the midline just on the left both involved superficial layers of skin dry eschar in place no erythema and no drainage. No signs of vesicles not in dermatomal pattern Extremity: COMMON NORMALS: normal to inspection, capillary refill normal, no clubbing, cyanosis or edema, no calf tenderness and no pedal edema Neuro: SENSORIUM/ORIENTATION: Yes oriented to person, Yes oriented to place and Yes oriented to time Course Vital Signs: Vital signs: Vital Signs Temperature 98.1 F 12/18/24 12:39 Pulse Rate 62 12/18/24 12:39 Respiratory Rate 17 12/18/24 12:39 Blood Pressure 191/87 12/18/24 12:39 Pulse Oximetry 97 12/18/24 12:39 MDM - General Adult Medical Decision Making Pressure ulcers avoid tight clothing to the area apply topical antibiotic ointment to wound twice a day keep covered follow-up with primary care. These do not have the appearance of varicella zoster. There is involvement of the superficial skin layers only at this time. They are in the same pattern as his belt line. No localized cellulitis. Medical Records I reviewed the patient's medical records. No radiology studies performed this visit Discharge Plan Discharge Patient Disposition: Home Clinical Impression: Pressure ulcer Condition: Stable Prescriptions: New mupirocin [Centany] 2 % ointment 1 applic topical BID Qty: 15 0RF No Action (DME) walker with large wheels and seat See Rx Instructions .Route .MEDSUPPLY Qty: 1 0RF Rx Instructions: As directed Laxative (sennosides) 15 mg tablet 15 mg PO DAILY PRN (Reason: Constipation) (DME) blood-glucose meter Kit See Rx Instructions .ROUTE .MEDSUPPLY Qty: 1 0RF Rx Instructions: testing daily (DME) lancets Misc See Rx Instructions .Route Qty: 100 0RF Rx Instructions: daily nitroglycerin 0.4 mg tablet, sublingual 0.4 mg sublingual Q5M PRN (Reason: Chest Pain) Qty: 20 2RF glimepiride 2 mg tablet 2 mg PO QAM Qty: 100 1RF Rx Instructions: AT 7AM (DME) Blood Glucose Test Strip See Rx Instructions .ROUTE .MEDSUPPLY Qty: 50 3RF Rx Instructions: testing daily (DME) lancets [OneTouch Delica Plus Lancet] 33 gauge misc See Rx Instructions .Route Qty: 100 0RF Rx Instructions: As directed isosorbide mononitrate 30 mg tablet extended release 24 hr 30 mg PO QAM Qty: 90 1RF atorvastatin 40 mg tablet 40 mg PO QAM Qty: 100 1RF Jardiance 25 mg tablet 25 mg PO QAM Qty: 90 1RF lisinopril 40 mg tablet 40 mg PO QAM Qty: 100 1RF metoprolol succinate 25 mg tablet extended release 24 hr 25 mg PO QAM Qty: 90 1RF amlodipine 5 mg tablet See Rx Instructions .ROUTE .COMPLEX Qty: 30 0RF Dose Instruction: TAKE ONE-HALF TABLET BY MOUTH ONCE DAILY IN THE EVENING Rx Instructions: TAKE ONE-HALF TABLET BY MOUTH ONCE DAILY IN THE EVENING dorzolamide-timolol 22.3-6.8 mg/mL drops 1 drp ophthalmic (eye) BID Discharge Orders: Discharge ED (Routine); Ordered 12/18/24 Ordered By: Reji Galarza Referrals: Rosalba Lay DO [Primary Care Provider, Family Practice] Discharge Diet: Usual diet Discharge Activity: Resume usual activity Patient Instructions: Opioid Safety, Pain Management, Patient Portal & Darling Instructions Activity Restrictions/Additional Instructions: Thank you for choosing [facility] for your healthcare needs today. It is very important that you follow up as instructed or that you return to the Emergency Department should you have concerns or if your condition changes or worsens in any way. Emergency department visits are focused on emergent conditions, in some cases you may require further evaluation on an outpatient basis. You have 2 small pressure ulcers on your abdominal abdomen. Suspect these are from tight clothing. There is superficial irritation to the skin and injury to the superficial layers avoid tight clothing around the abdomen. Apply topical antibiotic ointment and bandages to the wound twice a day follow-up with your primary care doctor. (Please note that included in your discharge packet is information concerning opioid safety and pain management. 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
== END 2024-12-18 12:56 | disposition home or self-care (01) ==
PROVIDERS: Emergency Provider Family Medicine; PCP Family Medicine
DX: L89.899 Pressure ulcer of other site, unspecified stage (principal); I10 Essential (primary) hypertension; E11.9 Type 2 diabetes mellitus without complications
CPT/HCPCS: 99283

== ENCOUNTER → 2025-01-03 11:27 | Outpatient (BNVA) | payer OTHER, MEDICAID, SELFPAY | PROVIDERS: PCP Family Medicine; Visit Provider Family Medicine | DX: E11.630 Type 2 diabetes mellitus with periodontal disease (principal) | CPT/HCPCS: 80053; 83036 ==

== ENCOUNTER → 2025-01-25 14:08 | Outpatient (BNVA) | payer MEDICARE, MEDICAID, SELFPAY | PROVIDERS: PCP Family Medicine; Visit Provider Podiatrist Foot & Ankle Surgery | DX: E11.69 Type 2 diabetes mellitus with other specified complication (principal); L60.3 Nail dystrophy; L84 Corns and callosities; L60.8 Other nail disorders; E11.630 Type 2 diabetes mellitus with periodontal disease; G63 Polyneuropathy in diseases classified elsewhere | CPT/HCPCS: 11055; 11721 ==